=== PATIENT | male | born 1965 | race Caucasian/White ===

== ENCOUNTER 2023-11-28 06:45 | Outpatient (OUT) | payer OTHER, SELFPAY ==
[2023-11-28 07:26] LABS: Basophils Absolute Auto 0.1 10^3/uL (0.0-0.1); Eosinophils Absolute Auto 0.3 10^3/uL (0.0-0.7); Eosinophils Percent Auto 3.4 % (0.9-7.0); Hematocrit 38.7 % (42.0-54.0); Hemoglobin 12.9 g/dL (14.0-18.0); Immature Granulocytes Abs Auto 0.04 10^3/uL (0.00-0.03); Immature Granulocytes Pct Auto 0.4 % (0.0-0.5); Lymphocytes Absolute Auto 3.9 10^3/uL (1.2-3.8); Lymphocytes Percent Auto 41.8 % (20.5-60.0); Mean Corpuscular HGB Conc 33.3 g/dL (29.9-35.2); Mean Corpuscular Hemoglobin 29.5 pg (25.9-34.0); Mean Corpuscular Volume 88.6 fL (80.0-94.0); Mean Platelet Volume 9.7 fL (9.5-13.5); Monocytes Absolute Auto 0.9 10^3/uL (0.3-0.8); Neutrophils Percent Auto 43.4 % (43.0-75.0); Platelet Count 282 10^3/uL (150-450); Red Blood Count 4.37 10^6/uL (4.70-6.10); Red Cell Distribution Width 12.5 % (11.0-15.0); White Blood Count 9.3 10^3/uL (4.0-11.0)
== END 2023-11-28 06:46 | disposition home or self-care (01) ==
LOC: LAB 06:45
PROVIDERS: Visit Provider Nurse Practitioner Family
DX: Z01.812 Encounter for preprocedural laboratory examination (principal); Z01.818 Encounter for other preprocedural examination
CPT/HCPCS: 36415; 85025

== ENCOUNTER 2025-03-05 06:45 | Outpatient (OUT) | payer OTHER, SELFPAY ==
--- OUTSIDE RECORDS SUMMARY | 2025-03-05 06:48 | XMS_ITS | Clinical Summary ---
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 Name Role Phone Unavailable Primary Care Provider Unavailabl e Social History Tobacco Use Types Packs/Day Years Used Date Smoking Tobacco: Never Assessed Sex and Gender Information Value Date Recorded Sex Assigned at Not on file Legal Sex Male 1:03 PM EDT Gender Identity Not on file Sexual Orientation Not on file Plan of Treatment Health Maintenance Due Date Last Done Comments HEPATITIS C VIRUS SCREENING 1967 TETANUS 1967 HIV SCREENING DISCUSSION 1982 HEP B VACCINE (1 of 3 - 19+ 3-dose series) 1986 TDAP (ADULT) 1986 LIPID SCREENING 2007 COLORECTAL CANCER SCREENING DISCUSSION 2012 PNEUMOCOCCAL VACCINE SERIES (1 of 1 - PCV) 2017 ZOSTER (SHINGLES) VACCINE (1 of 2) 2017 PROSTATE CANCER SCREENING DISCUSSION 2022 COVID-19 VACCINE ( - 2023- season) 2024 INFLUENZA VACCINE (#1) 2025 Insurance Medicare [employer] PPO
--- OUTSIDE RECORDS SUMMARY | 2025-03-05 06:48 | XMS_ITS | Clinical Summary ---
[facility] Address [id number] [facility] [place] [address] Care Team Providers Care [employer] Worker Name Role Phone Unavailable Primary Care Provider Unavailabl e Social History Tobacco Use Types Packs/Day Years Used Date Smoking Tobacco: Never Assessed Childcare Answer Date Recorded Childcare Unknown 12/17/2018 Employment Answer Date Recorded Employment Unknown 12/17/2018 Sex and Gender Information Value Date Recorded Sex Assigned at Not on file Legal Sex Male 11:51 AM EDT Gender Identity Not on file Sexual Orientation Not on file Plan of Treatment Not on file Medical Devices Not on file
--- OUTSIDE RECORDS SUMMARY | 2025-03-05 06:48 | XMS_ITS | CCD ---
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 Name Role Phone VANESSA VILLAR Admitting Unavailable UNKNOWN, PHYSICIAN Primary Care Unavailable HERMINIA ADAMS Referring Unavailable ID Procedure Practitioner Unavailab le UNKNOWN, PROVIDER Surgeon Unavailable DELIA ANTONIO Attending Unavailable ID Procedure Practitioner Unavailab le [place], EHAB A Surgeon Unavailable MISC, DOCTOR Primary Care Unavailable [place]HAWY, EHAB Attending Unavailable [place], EHAB Consulting Unavailable [place], EHAB Admitting Unavailable MISC, DOCTOR Attending Unavailable MISC, DOCTOR Consulting Unavailable MISC, DOCTOR Admitting Unavailable MISC, DOCTOR Primary Care Unavailable EL[place]HAWY, EHAB Attending Unavailable [place], EHAB Consulting Unavailable [place], EHAB Admitting Unavailable KARY ABRAHAM Consulting Unavailable REQUEST, NONE LISTED Primary Care Unavailable HERMINIA ADAMS Attending Unavailable HERMINIA ADAMS Admitting Unavailable HERMINIA ADAMS Consulting Unavailable Hope Vazquez MD Unavailable Dallin Harris MD Unavailable Hope Vazquez MD Unavailable Dallin Harris MD Unavailable NO FAMILY, PHYSICIAN Primary Care Provider Unava MICH Bhatt Emergency Provider DO Randell Fields Admit Provider [phone] DO Randell Fields Attending Provider Randell Fields Admitting Unavailable Yohana Stewart Attending Unavailable NO FAMILY, PHYSICIAN Primary Care Unavailable Dallin Harris MD Unavailable JR. MADRID GEORGE C Attending Unavaila yamileth MADRID JR., GEORGE C Attending Unavaila ARDEN Daniel Attending Unavailable BOYLE, CHARI Rogel Attending Unavailable BLACKSTONGEMINI T Attending Unavailable BOYLE, CHARI J Referring Unavailable KELBLEY, ODILIA Attending Unavailable BOYLE, CHARI J Referring Unavailable KELBLEY, ODILIA Attending Unavailable BOYLE, CHARI J Referring Unavailable BLACKSTON, GEMINI T Attending Unavailable BOYLE, CHRAI J Referring Unavailable KELBLEY, ODILIA Attending Unavailable BOYLE, CHARI J Referring Unavailable KELBLEY, ODILIA Attending Unavailable BOYLE, CHARI J Referring Unavailable RUPALI REYES Attending Unavailable BOYLE, CHARI J Referring Unavailable BLACKSTON, GEMINI T Attending Unavailable BOYLE, CHARI J Referring Unavailable BOYLE, CHARI J Attending Unavailable BLACKSTON, GEMINI T Attending Unavailable BOYLE, CHARI J Referring Unavailable KELBLEY, ODILIA Attending Unavailable BOYLE, CHARI J Referring Unavailable IZAGUIRREPAULA Attending Unavailable BOYLE, CHARI J Referring Unavailable BLACKSTON, GEMINI T Attending Unavailable BOYLE, CHARI J Referring Unavailable KELBLEY, ODILIA Attending Unavailable BOYLE, CHARI J Referring Unavailable KELBLEY, ODILIA Attending Unavailable BOYLE, CHARI J Referring Unavailable BLACKSTONGEMINI T Attending Unavailable BOYLE, CHARI J Referring Unavailable KELBLEY, ODILIA Attending Unavailable BOYLE, CHARI J Referring Unavailable KELBLEY, ODILIA Attending Unavailable BOYLE, CHARI J Referring Unavailable BLACKSTON, GEMINI T Attending Unavailable BOYLE, CHARI J Referring Unavailable KELBLEY, ODILIA Attending Unavailable BOYLE, CHARI J Referring Unavailable IZAGUIRREPAULA Attending Unavailable BOYLE, CHARI J Referring Unavailable STEPHEN BARRIOS Attending Unavailable BOYLE, CHARI J Referring Unavailable BLACKSTONGEMINI T Attending Unavailable BOYLE, CHARI J Referring Unavailable BOYLE, CHARI Rogel Attending Unavailable STEPHEN BARRIOS Attending Unavailable BOYLE, CHARI J Referring Unavailable KELBLEY, ODILIA Attending Unavailable BOYLE, CHARI J Referring Unavailable KELBLEY, ODILIA Attending Unavailable BOYLE, CHARI J Referring Unavailable KELBLEY, ODILIA Attending Unavailable BOYLE, CHARI J Referring Unavailable MAGDA MANNING Attending Unavailable BOYLE, CHARI J Referring Unavailable KELBLEY, ODILIA Attending Unavailable BOYLE, CHARI J Referring Unavailable KELBLEY, ODILIA Attending Unavailable BOYLE, CHARI J Referring Unavailable JR. MADRID GEORGE C Attending Rambo Resendez MD, Sean Larson Primary Care Provider Unavail able NOBLE HARRIS Attending Unavailable NOBLE HARRIS Referring Unavailable KIMBERLY MD, DALLIN Attending Unavailable DALLIN HARRIS MD Referring Unavailable Medications Current Medications Medication Drug Class(es) Dates Sig (Normalized) Sig (Original) furosemide 20 mg oral tablet (20 sources) Loop Diuretic furosemide (Lasi x) 20 MG tablet 1 (one) time each day at the same time. Active perflutren lipid microspheres 1.3 mL in NaCl (PF) 0.9% 10 mL injection (DEFINITY) (6 sources) Start: 11-04-2023 End: 11-11-2023 perflutren lipid microspheres 1.3 mL in NaCl (PF) 0.9% 10 mL injection (DEFINITY) Start: 10-12-2022 End: 03-04-2023 perflutren lipid microsphere s 1.3 mL in NaCl (PF) 0.9% 10 mL injection (DEFINITY) Start: 10-12-2022 End: 01-11-2024 perflutren lipid microsphere s 1.3 mL in NaCl (PF) 0.9% 10 mL injection (DEFINITY) 125 ml sodium chloride 9 mg/ ml prefilled syringe (6 sources) Start: 10-12-2022 End: 01-11-2024 sodium chloride 0.9 % (flush ) 10 mL (BD POSIFLUSH) Completed/Discontinued Medications Medication Drug Class(es) Dates Sig (Normalized) Sig (Original) apixaban 5 mg oral tablet (20 sources) Factor Xa Inhibitor Start: 02-03-2023 End: 03-01-2025 take 1 tablet by mouth twice daily apixaban (ELIQUIS) 5 mg tab(s) Take 1 tablet by mouth two times a day. 180 tablet 3 02/13/2024 03/01/2025 Discontinued Start: 06-28-2022 End: 01-31-2023 take 1 tablet by mouth twice daily ELIQUIS 5 mg tab(s) TAKE 1 TABLET BY MOUTH TWICE DAILY 180 tablet 3 06/28/2022 01/31/2023 Discontinued Start: 08-07-2021 End: 06-25-2022 take 1 tablet by mouth twice daily apixaban (ELIQUIS) 5 mg tab(s) Take 1 tablet by mouth twice daily. 60 tablet 5 12/11/2021 06/25/2022 Discontinued apixaban (Eliqui s) 5 MG tablet every 12 (twelve) hours. Active Comment on above: Take 1 tablet by rickey twice daily. Take 5 mg by mouth t wice daily. TAKE 1 TABLET BY RICKEY TWICE DAILY aspirin 81 mg delayed release oral tablet (20 sources) Platelet Aggregation Inhibitor, Nonsteroidal Anti-inflammatory Drug Start: 02-13-2024 End: 03-01-2025 take 1 tablet by mouth once daily aspirin, enteric coated (ASPIRIN, ENTERIC COATED) 81 mg EC tablet Take 1 tablet by mouth once daily. 90 tablet 3 02/13/2024 03/01/2025 Discontinued Start: 08-07-2021 take 1 tablet by rickey once daily Aspirin (Baby Aspirin) 81 mg Tablet,Chewable Active 81 MG PO Daily August 07, 2021 12:00am Comment on above: Take 81 mg by mouth once daily. atorvastatin 80 mg oral tablet (20 sources) HMG-CoA Reductase Inhibitor Start: 3 End: 5 take 1 tablet by mouth once daily atorvastatin (LIPITOR) 80 mg tablet Take 1 tablet by mouth once daily. 90 tablet 3 02/13/2024 03/01/2025 Discontinued Start: 08-07-2021 End: 01-31-2023 take 1 tablet by mouth once daily atorvastatin (LIPITOR) 80 mg tablet TAKE 1 TABLET BY MOUTH EVERY DAY 30 tablet 5 06/05/2022 01/31/2023 Discontinued Comment on above: Take 1 tablet by rickey once daily. Take 80 mg by mouth once daily. TAKE 1 TABLET BY RICKEY EVERY DAY lisinopril 5 mg oral tablet (20 sources) Angiotensin Converting Enzyme Inhibitor Start: 2 End: 5 take 1 tablet by mouth once daily lisinopril (ZESTRIL) 5 mg tablet TAKE 1 TABLET BY MOUTH DAILY 90 tablet 02/03/2025 03/01/2025 Discontinued Comment on above: Take 1 tablet by rickey once daily. Take 5 mg by mouth o nce daily. 24 hr metoprolol succinate 50 mg extended release oral tablet (20 sources) beta-Adrenergic Mary Jo Start: 3 End: 5 take 1 tablet by mouth twice daily metoprolol succinate ER (TOPROL XL) 50 mg 24 hr tablet TAKE 1 TABLET BY MOUTH TWICE DAILY 180 tablet 02/03/2025 03/01/2025 Discontinued Start: 11-28-2022 End: 01-31-2023 take 1 tablet by mouth twice daily metoprolol succinate ER (TOPROL XL) 50 mg 24 hr tablet TAKE 1 TABLET BY MOUTH TWICE DAILY 180 tablet 0 11/28/2022 01/31/2023 Discontinued Start: 08-07-2021 take 25 mg by mouth once daily Metoprolol Succinate Active 25 MG PO Daily August 07, 2021 12:00am Start: 10-10-2020 End: 12-11-2021 take 1 tablet by mouth twice daily metoprolol succinate ER (TOPROL XL) 50 mg 24 hr tablet Take 1 tablet by mouth twice daily. 180 tablet 3 12/11/2021 Active metoprolol succi sheila XL (Toprol-XL) 25 MG 24 hr tablet 1 (one) time each day at the same time. Active Comment on above: Take 1 tablet by rickey th twice daily. TAKE 1 TABLET BY RICKEY TH TWICE DAILY pantoprazole 40 mg delayed release oral tablet (11 sources) Proton Pump Inhibitor Start: 06-05-20 End: 11-04-19 take 1 tablet by mouth once daily in the morning pantoprazole DR (PROTONIX) 40 mg tablet Take 1 tablet by mouth daily at 6 am. 45 tablet 0 06/05/2023 11/04/2023 Discontinued Comment on above: Take 1 tablet by rickey th daily at 6 am. spironolactone 25 mg oral tablet (20 sources) Aldosterone Antagonist Start: 02-04-20 End: 03-01-20 take 0.5 tablet by mouth once daily spironolactone (ALDACTONE) 25 mg tablet TAKE 1/2 TABLET BY MOUTH DAILY 45 tablet 02/03/2025 03/01/2025 Discontinued Start: 11-28-2022 End: 01-31-2023 take 0.5 tablet by mouth once daily spironolactone (ALDACTONE) 25 mg tablet TAKE 1/2 TABLET BY MOUTH EVERY DAY 45 tablet 0 11/28/2022 01/31/2023 Discontinued Start: 08-07-2021 take 25 mg by mouth once daily Spironolactone Active 25 MG PO Daily August 07, 2021 12:00am Start: 05-04-2020 End: 06-06-2022 take 0.5 tablet by mouth once daily spironolactone (ALDACTONE) 25 mg tablet Take 0.5 tablets by mouth once daily. 45 tablet 3 12/11/2021 Active Comment on above: Take 0.5 tablets by mouth once daily. TAKE 1/2 TABLET BY M OUTH EVERY DAY Problems Active Problems Problem Classification Problem Date Documented Date Episodic/Chronic Acute bronchitis (3 sources) Acute viral bronchitis; Translations: [Acute bronchitis due to other specified organisms] Onset: 2 06-26-2022 Episodic Cardiac dysrhythmias (20 sources) Unspecified atrial flutter; Translations: [Paroxysmal atrial fibrillation] Onset: 0 Chronic Conditions associated with dizziness or vertigo (1 source) Lightheadedness; Translations: [Dizziness and giddiness] 08-07-2021 Episodic Congestive heart failure; nonhypertensive (20 sources) Heart failure, unspecified; Translations: [Acute on chronic systolic heart failure] Onset: 0 06-19-2020 Chronic Coronary atherosclerosis and other heart disease (20 sources) Coronary atherosclerosis; Translations: [Atherosclerotic heart disease of [place] coronary artery without angina pectoris] Onset: 0 Chronic Disorders of lipid metabolism (6 sources) Mixed hyperlipidemia; Translations: [Mixed hyperlipidemia] Onset: 5 Chronic Essential hypertension (20 sources) Essential hypertension; Translations: [Essential (primary) hypertension] Onset: 0 Chronic Nonspecific chest pain (1 source) Chest pain, unspecified; Translations: [CHEST PAIN UNSPECIFIED] Onset: 0 Episodic Osteoarthritis (20 sources) Arthritis of right acromioclavicular joint; Translations: [Primary osteoarthritis, right shoulder] Onset: 3 12-11-2022 Chronic Other aftercare (1 source) 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; Translations: [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 CURRNT USE ANTICOAGULANTS] Onset: 0 Episodic Other aftercare (20 sources) Long-term current use of anticoagulant; Translations: [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] Onset: 1 07-15-2020 Episodic Other aftercare (1 source) Patient encounter status; Translations: [Encounter for follow-up examination after completed treatment for conditions other than malignant neoplasm] 02-13-2024 Episodic Other lower respiratory disease (1 source) Shortness of breath; Translations: [SHORTNESS OF BREATH] Onset: 0 Episodic Other lower respiratory disease (1 source) Dyspnea; Translations: [Shortness of breath] Episodic Other non-traumatic joint disorders (20 sources) Derangement of right shoulder joint; Translations: [Other specific joint derangements of right shoulder, not elsewhere classified] Onset: 3 12-11-2022 Chronic Other non-traumatic joint disorders (13 sources) Pain in right shoulder; Translations: [Pain in joint, shoulder region] 04-06-2024 Episodic Other nutritional; endocrine; and metabolic disorders (20 sources) Obese class I; Translations: [Obesity, unspecified] Onset: 1 07-15-2020 Chronic Other screening for suspected conditions (not mental disorders or infectious disease) (3 sources) Electrocardiogram abnormal; Translations: [Abnormal electrocardiogram [ECG] [EKG]] Onset: 5 02-25-2025 Episodic Pneumonia (except that caused by tuberculosis or sexually transmitted disease) (1 source) Pneumonia, unspecified organism; Translations: [Pneumonia, unspecified organism] Onset: 2 Episodic Residual codes; unclassified (15 sources) History of arthroscopic procedure on shoulder; Translations: [Other specified postprocedural states] 04-06-2024 Episodic Residual codes; unclassified (1 source) H/O: atrial fibrillation; Translations: [Other specified postprocedural states] 03-01-2025 Episodic Past or Other Problems Problem Classification Problem Date Documented Da te Episodic/Chronic Other non-traumatic joint disorders (10 sources) Stiffness of right shoulder; Translations: [Stiffness of right shoulder, not elsewhere classified] 03-25-2024 Episodic Results Test Name Value Interpretation Reference Range Facility [facility] 03-01-2025 CNOV Office Visit (CARCMN ) -- MARILU GOMEZ ([id number]) 1965 M Date Time Provider Department 03/01/25 1:00 PM DALLIN HARRIS During your visit today, we recorded the following information about you: Pulse Blood pressure Weight 60/minute 120/70 87.1 kg Dallin Harris MD 03/01/2025 1:58 PM Signed [facility] Department of Cardiovascular Medicine SECTION OF CLINICAL CARDIOLOGY OUTPATIENT VISIT DATE March 01, 2025 OUTPATIENT VISIT TYPE ESTABLISHED PRIMARY CARE PHYSICIAN: To use this Smartlink, specify the provider ID whose address you want to display, e.g., .PROVADDR[1 (where 1 is the provider ID). CHIEF COMPLAINT: Follow-up Feeling well HISTORY OF PRESENT ILLNESS: Mr. Gomez is a very pleasant 59-year-old man who was last seen in the cardiology clinic 02/13/2024. He has a history of established CAD with prior PCI of the LAD and circumflex 2017, paroxysmal atrial fibrillation, hypertension, hyperlipidemia. He underwent ablation of atrial fibrillation in May 2023. States that he has been feeling very well since the last visit. No recurrent symptomatic arrhythmia. He is compliant with anticoagulation. No history of TIA/CVA. Denies exertional angina or dyspnea. No orthopnea, PND or edema. PAST MEDICAL HISTORY Diagnosis Date Atrial flutter (HCC) CAD (coronary artery disease) CHF (congestive heart failure) (HCC) H/O arthroscopic knee surgery HTN (hypertension) PAST SURGICAL HISTORY Procedure Laterality Date ABLATION A-FIB BY PVI 06/04/2023 AFIB PVI W/COMPL EP STUDY 06/2020 and atrial flutter ELBOW SURGERY HX HEART CATHETERIZATION 03/20/2017 stent LAD and circumflex SHOULDER SURGERY HX 12/2023 SOCIAL HISTORY SOCIAL HISTORY[1] FAMILY HISTORY Problem Relation Age of Onset No Known Problems Mother Prostate Cancer Father Pancreatic Cancer Father No Known Problems Sister No Known Problems Brother ALLERGIES: ALLERGIES No Known Allergies MEDICATIONS: lisinopril (ZESTRIL) 5 mg tablet TAKE 1 TABLET BY MOUTH DAILY metoprolol succinate ER (TOPROL XL) 50 mg 24 hr tablet TAKE 1 TABLET BY MOUTH TWICE DAILY spironolactone (ALDACTONE) 25 mg tablet TAKE 1/2 TABLET BY MOUTH DAILY apixaban (ELIQUIS) 5 mg tab(s) Take 1 tablet by mouth two times a day. aspirin, enteric coated (ASPIRIN, ENTERIC COATED) 81 mg EC tablet Take 1 tablet by mouth once daily. atorvastatin (LIPITOR) 80 mg tablet Take 1 tablet by mouth once daily. PHYSICAL EXAMINATION: BP 120/70 (BP Site: Right Arm) Pulse 60 Wt 87.1 kg (192 lb) SpO2 99% BMI 28.77 kg/m? General: Well appearing, in no acute distress. Skin: No clubbing. No cyanosis. Neck: Supple, JVP normal Lungs: Clear to auscultation bilaterally. Heart: Regular rhythm. PMI 5th ICS LMCL, S1nl, S2nl. No murmur, added sounds or rub Extremities: No peripheral edema bilaterally. Neuro: Oriented x3, alert, cooperative, gait coordinated. CARDIOVASCULAR MEDICINE TESTING: Last ECHO Result Conclusion ECHO Collected: 11/04/2023 9:35 AM (Final result) Impression: CONCLUSIONS: - Exam indication: Paroxysmal atrial fibrillation S/P Ablation (05/2023) - The left ventricle is normal in size. Left ventricular systolic function is normal. EF = 58 ? 5% (2D biplane) Left ventricular diastolic function was not evaluated due to recent PVI. - The right ventricle is normal in size. Right ventricular systolic function is normal. - Estimated right ventricular systolic pressure is likely underestimated due to a weak or incomplete tricuspid regurgitation signal and is, at least, 27 mmHg consistent with normal pulmonary artery pressures. Estimated right atrial pressure is 8 mmHg based on IVC assessment. - There are no significant valvular abnormalities. - Exam was compared with the prior CC echocardiographic exam performed on 01/31/2023. PT now S/P Af Ablation. * * * Final * * * Last EKG Result Conclusion ECG COMPLETE Collected: 03/01/2025 11:30 AM (Preliminary result) Impression: NORMAL SINUS RHYTHM NORMAL ECG ECG reviewed Latest Ref Rng 02/13/2024 Protein, Total 6.3 - 8.0 g/dL 6.8 Albumin 3.9 - 4.9 g/dL 4.5 Calcium 8.5 - 10.2 mg/dL 9.7 Bilirubin, Total 0.2 - 1.3 mg/dL 0.4 Alkaline Phosphatase 38 - 113 U/L 80 AST 14 - 40 U/L 18 ALT 10 - 54 U/L 23 Glucose 74 - 99 mg/dL 97 BUN 9 - 24 mg/dL 17 Creatinine 0.73 - 1.22 mg/dL 0.97 Sodium 136 - 144 mmol/L 141 Potassium 3.7 - 5.1 mmol/L 4.5 Chloride 98 - 107 mmol/L 103 CO2 22 - 30 mmol/L 24 Anion Gap 8 - 15 mmol/L 14 eGFR >=60 mL/min/1.73m? 92 WBC 3.70 - 11.00 k/uL 8.25 RBC 4.20 - 6.00 m/uL 4.74 Hemoglobin 13.0 - 17.0 g/dL 14.1 Hematocrit 39.0 - 51.0 % 42.7 MCV 80.0 - 100.0 fL 90.1 MCH 26.0 - 34.0 pg 29.7 MCHC 30.5 - 36.0 g/dL 33 (more content not included)... Normal [facility] CNOV Office Visit (CARDMN ) -- MARILU GOMEZ ([id number]) 1965 M Date Time Provider Department 03/01/25 12:15 PM NOBEL HARRIS CARDMN During your visit today, we recorded the following information about you: Pulse Blood pressure Weight Height 67/minute 116/69 87.1 kg 1.74 m Noble Harris MD 03/01/2025 5:41 PM Signed [facility] Department of Cardiovascular Medicine SECTION OF CARDIAC PACING and ELECTROPHYSIOLOGY OUTPATIENT VISIT DATE March 01, 2025 OUTPATIENT VISIT TYPE ESTABLISHED PRIMARY CARE PHYSICIAN: To use this Smartlink, specify the provider ID whose address you want to display, e.g., .PROVADDR[1 (where 1 is the provider ID). REFERRING PHYSICIAN: Noble Harris [id number] [facility] [place] [address] CHIEF COMPLAINT: Atrial Fibrillation HISTORY OF PRESENT ILLNESS: Mr. Gomez is a 59 year old male who presents today for follow-up visit for atrial fibrillatoin. He denies chest pain, shortness of breath, orthopnea, cough, edema, palpitations, PND, lightheadedness or syncope. NURSING INTAKE HISTORY: Mr. Gomez is a 59 year old male who presents today for follow-up visit s/p redo PVI 06/04/2023. He was last seen in office 11/04/2023. 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 He has previously tried Sotalol but stopped due to ineffectiveness. He had a redo 06/04/2023 and has had no recurrence. He denies chest pain, shortness of breath, orthopnea, cough, edema, palpitations, PND, lightheadedness or syncope. He checks himself with a kardia once a month to once a week and with symptoms. CHADS VASC: 3 (CAD, CHF, HTN) PAST MEDICAL HISTORY Diagnosis Date Atrial flutter (HCC) CAD (coronary artery disease) CHF (congestive heart failure) (HCC) H/O arthroscopic knee surgery HTN (hypertension) PAST SURGICAL HISTORY Procedure Laterality Date ABLATION A-FIB BY PVI 06/04/2023 AFIB PVI W/COMPL EP STUDY 06/2020 and atrial flutter ELBOW SURGERY HX HEART CATHETERIZATION 03/20/2017 stent LAD and circumflex SHOULDER SURGERY HX 12/2023 SOCIAL HISTORY SOCIAL HISTORY[1] FAMILY HISTORY Problem Relation Age of Onset No Known Problems Mother Prostate Cancer Father Pancreatic Cancer Father No Known Problems Sister No Known Problems Brother ALLERGIES: ALLERGIES No Known Allergies MEDICATIONS: lisinopril (ZESTRIL) 5 mg tablet TAKE 1 TABLET BY MOUTH DAILY metoprolol succinate ER (TOPROL XL) 50 mg 24 hr tablet TAKE 1 TABLET BY MOUTH TWICE DAILY spironolactone (ALDACTONE) 25 mg tablet TAKE 1/2 TABLET BY MOUTH DAILY apixaban (ELIQUIS) 5 mg tab(s) Take 1 tablet by mouth two times a day. aspirin, enteric coated (ASPIRIN, ENTERIC COATED) 81 mg EC tablet Take 1 tablet by mouth once daily. atorvastatin (LIPITOR) 80 mg tablet Take 1 tablet by mouth once daily. Lorrie Iverson RN BP 116/69 Pulse 67 Ht 174 cm (5' 8.5 ) Wt 87.1 kg (192 lb) BMI 28.77 kg/m? CARDIOVASCULAR MEDICINE TESTING: Last ECHO Result Conclusion ECHO Collected: 11/04/2023 9:35 AM (Final result) Impression: CONCLUSIONS: - Exam indication: Paroxysmal atrial fibrillation S/P Ablation (05/2023) - The left ventricle is normal in size. Left ventricular systolic function is normal. EF = 58 ? 5% (2D biplane) Left ventricular diastolic function was not evaluated due to recent PVI. - The right ventricle is normal in size. Right ventricular systolic function is normal. - Estimated right ventricular systolic pressure is likely underestimated due to a weak or incomplete tricuspid regurgitation signal and is, at least, 27 mmHg consistent with normal pulmonary artery pressures. Estimated right atrial pressure is 8 mmHg based on IVC assessment. - There are no significant valvular abnormalities. - Exam was compared with the prior echocardiographic exam performed on 01/31/2023. PT now S/P Af Ablation. * * * Final * * * Last EKG Result Conclusion ECG COMPLETE Collected: 03/01/2025 11:30 AM (Preliminary result) Impression: NORMAL SINUS RHYTHM NORMAL ECG EP STAFF ADDENDUM: I have reviewed the above information and examined the patient and confirm the above with the following additions/modifications. HISTORY OF PRESENT ILLNESS: The patient is a 59-year-old male with a history of atrial fibrillation, status post two ablations, and coronary artery stents, presenting for follow-up. The patient underwent a second ablation in May 2023 and reports no recurrence of atrial fibrillation since the procedure. He denies experiencing chest pain, dyspnea, or palpitations. He roxanne (more content not included)... Normal [facility] ECHOon 11-04-2023 CONCLUSIONS: - Exam indication: Paroxysmal atrial fibrillation S/P Ablation (05/2023) - The left ventricle is normal in size. Left ventricular systolic function is normal. EF = 58 5% (2D biplane) Left ventricular diastolic function was not evaluated due to recent PVI. - The right ventricle is normal in size. Right ventricular systolic function is normal. - Estimated right ventricular systolic pressure is likely underestimated due to a weak or incomplete tricuspid regurgitation signal and is, at least, 27 mmHg consistent with normal pulmonary artery pressures. Estimated right atrial pressure is 8 mmHg based on IVC assessment. - There are no significant valvular abnormalities. - Exam was compared with the prior CC echocardiographic exam performed on 01/31/2023. PT now S/P Af Ablation. * * * Final * * * [facility] Echocardiography Report: Transthoracic Echo [facility] [id number] Date of service: 11/04/2023 9:35:12 AM [employer]UTIONS ARCHITECT Ordering physician: NOBLE HARRIS Indication: Paroxysmal atrial fibrillation S/P Ablation (05/2023) Technologist: America Verma Interpreting physician: Eleazar Coyle MD PATIENT: Name: MARILU GOMEZ : 1965 Age: 58 years Gender: M History of arrhythmia, hypertension, coronary artery disease and heart failure with hospitalization. Previous cardiovascular interventions: Afib ablation (2022) PCI (2016) Primary rhythm: sinus. Height: 172.70 cm BSA: 2.03 m Weight: 85.73 kg BMI: 28.7 kg/m Heart rate 93 bpm Blood pressure 139/75 mmHg Color Doppler was utilized to interrogate the cardiac valves assessed and spectral Doppler was utilized to determine the flow velocities and pressure gradients reported in this exam. Myocardial strain analysis was performed in this exam to aid in the assessment of cardiac function. MEASUREMENTS: Value Indexed Normal Max aortic dimension 3.3 cm Ao < 3.8 Left atrial volume 31 ml (biplane A-L) 15 ml/m Tramaine <= 34 LV ID (diastole) 4.0 cm (2D) 1.98 cm/m LV ID (systole) 2.6 cm (2D) 1.29 cm/m IVS, leaflet tips 1.2 cm (2D) Posterior wall thickness 0.8 cm (2D) Left ventricular mass 126 g (2D) 62 g/m Global peak long strain -19.1 % LV stroke volume 57 ml (2D biplane) LV end diastolic volume 100 ml (2D biplane) 49.2 ml/m 34<=EDVi<75 LV end systolic volume 42 ml (2D biplane) 20.8 ml/m Ejection Fraction 58 % (2D biplane) EF > 52 FINDINGS: LEFT VENTRICLE The left ventricle is normal in size. There is normal wall thickness. Left ventricular systolic function is normal globally. Global LV myocardial strain is normal. Left ventricular diastolic function was not evaluated due to recent PVI. Mitral annular lateral E/e': 4.4. Mitral annular septal E/e': 5.6. Wall Motion: All scored segments are normal. RIGHT VENTRICLE The right ventricle is normal in size. Right ventricular systolic function is normal globally. RV systolic tissue Doppler velocity is 15.0 cm/s. Tricuspid annular displacement is 2.1 cm. Estimated right ventricular systolic pressure is likely underestimated due to a weak or incomplete tricuspid regurgitation signal and is, at least, 27 mmHg consistent with normal pulmonary artery pressures. Estimated right atrial pressure is 8 mmHg based on IVC assessment. LEFT ATRIUM The left atrial cavity is normal in size. Pulmonary Veins: The pulmonary venous pattern showed blunted systolic flow. RIGHT ATRIUM The right atrial cavity is normal in size. Inferior Vena Cava: The inferior vena cava appears normal measuring 1.5 cm. The vessel decreases less than 50 percent with inspiration. MITRAL VALVE There is mild mitral annular calcification observed posterior. There is trace mitral valve regurgitation. There is mild thickening. The pressure half time is 69 msec. The peak mitral E/A ratio is 1.28. The average mitral E/e' ratio is 5.0. The mitral flow deceleration time is 238 msec. TRICUSPID VALVE The tricuspid valve leaflets are structurally normal. There is trace tricuspid valve regurgitation. The hepatic venous pattern showed normal systolic flow. AORTIC VALVE The aortic valve cusps are structurally normal. There is no aortic valve regurgitation. Tricuspid aortic valve. PULMONIC VALVE There is trace pulmonic valve regurgitation. There is no thickening. AORTA The visualized aorta is normal in size. Measurements - Sinus: 3.3 cm. Mid ascending aorta 3.2 cm. PULMONARY ARTERIES The pulmonary arteries are normal. INTERATRIAL SEPTUM There is no evidence of intracardiac shunting as detected by Doppler. INTERVENTRICULAR SEPTUM There is no flow through the interventricular septum as detected by Doppler. PERICARDIUM The pericardium is normal. There is no pericardial effusion. There is an epicardial fat pad. [facility] ARRHYTHMIA TRANS TELE MEASUR Antione 09-06-2023 Measure ID Interval 114 [facility] MEASURE QRS Interval 60 [facility] MEASURE QT Interval 450 [facility] MEASURE RR INTERVAL MAX 75.85 [facility] Symptoms routine [facility] ARRHYTHMIA TRANS TELE MEASUR Antione 08-30-2023 Measure ID Interval 111 [facility] MEASURE QRS Interval 103 [facility] MEASURE QT Interval 375 [facility] MEASURE RR INTERVAL MAX 80.27 [facility] Symptoms Routine [facility] ARRHYTHMIA TRANS TELE MEASUR Antione 08-23-2023 Measure ID Interval 130 [facility] MEASURE QRS Interval 60 [facility] MEASURE QT Interval 342 [facility] MEASURE RR INTERVAL MAX 77.49 [facility] Symptoms routine [facility] ARRHYTHMIA TRANS TELE MEASUR Antione 08-16-2023 Measure ID Interval 130 [facility] MEASURE QRS Interval 70 [facility] MEASURE QT Interval 325 [facility] MEASURE RR INTERVAL MAX 73.06 [facility] Symptoms routine [facility] ARRHYTHMIA TRANS TELE MEASUR Antione 08-08-2023 Measure ID Interval 154 [facility] MEASURE QRS Interval 84 [facility] MEASURE QT Interval 406 [facility] MEASURE RR INTERVAL MAX 81.36 [facility] Symptoms routine [facility] ARRHYTHMIA TRANS TELE MEASUR Antione 06-05-2023 Measure ID Interval 130 [facility] MEASURE QRS Interval 60 [facility] MEASURE QT Interval 345 [facility] MEASURE RR INTERVAL MAX 87.32 [facility] Symptoms routine [facility] ECG 12 lead ECGon 06-28-2022 ECG 12 lead ECG [facility] [place] [address] Electrocardiograph Report Signed Patient: Marilu Gomez JR MR#: [id number] : 1965 Acct:[id number] Age/Sex: 56 / M ADM Date: 06/26/22 Loc: Room: [address] [place] [address] Type: DIS IN Attending Dr: Yohana Stewart DO Ordering Provider: Randell Fields DO Date of Service: 06/28/22 ECG/ECG 12 lead ECG: already completed at 0100 Copies to: Test Reason : Blood Pressure : / mmHG Vent. Rate : 076 BPM Atrial Rate : 076 BPM P-R Int : 124 ms QRS Dur : 092 ms QT Int : 394 ms P-R-T Axes : 057 -33 037 degrees QTc Int : 443 ms Normal sinus rhythm Left anterior fascicular block Incomplete right bundle branch block Abnormal ECG No previous ECGs available Confirmed by KARY AHUMADA DO ([id number]) on 06/28/2022 7:02:00 PM Referred By: Electronically Signed By:KARY AHUMADA DO Transcribed By: MUS Signed By Kary Ahumada DO 06/28 190 [facility] Basic Metabolic Panelon 12-2 Anion gap [Moles/Vol] 12.1 mmol/L Normal 6.0-15.0 [facility] Comment on above: Performed By: #### U RLEGIONELLA, UR STP AG #### [facility] , Calcium [Mass/Vol] 8.3 mg/dL Normal 8.2-10.2 [facility] Comment on above: Performed By: #### U RLEGIONELLA, UR STP AG #### [facility] , Chloride [Moles/Vol] 104 mmol/L Normal 95-114 [facility] Comment on above: Performed By: #### U RLEGIONELLA, UR STP AG #### [facility] , CO2 [Moles/Vol] 23.8 mmol/L Normal 22.0-30.0 [facility] Comment on above: Performed By: #### U RLEGIONELLA, UR STP AG #### [facility] , Creatinine [Mass/Vol] 0.76 mg/dL Normal 0.64-1.27 [facility] Comment on above: Performed By: #### U RLEGIONELLA, UR STP AG #### [facility] , Creatinine Clr Calc Pharmacy 122.37 [facility] Comment on above: Result Comment: PERF ORMED BY: [facility] [address] [place] [address] PATHOLOGIST CROP ADJUSTER PEGGY YORK M.D. Performed By: #### U RLEGIONELLA, UR STP AG #### [facility] , Estimated GFR ( Fifi > 60 Normal [facility] Comment on above: Result Comment: GFR estimated reference range: According to KDOQI guidelines, <60 ml/min/1.73m2 is sufficient to diagnose a patient with chronic kidney disease. Performed By: #### U RLEGIONELLA, UR STP AG #### [facility] , Estimated GFR (Non- Am > 60 Normal [facility] Comment on above: Performed By: #### U RLEGIONELLA, UR STP AG #### [facility] , Glucose [Mass/Vol] 115 mg/dL High 70-100 [facility] Comment on above: Result Comment: [place] om Glucose Reference Range is dependent on time and content of last meal. Glucose of more than 200 mg/dL in a nonstressed, ambulatory subject supports the diagnosis of Diabetes Mellitus. ADA recommended reference range Performed By: #### U RLEGIONELLA, UR STP AG #### [facility] , Potassium [Moles/Vol] 3.9 mmol/L Normal 3.5-5.1 [facility] Comment on above: Performed By: #### U RLEGIONELLA, UR STP AG #### [facility] , Sodium [Moles/Vol] 136 mmol/L Normal 136-146 [facility] Comment on above: Performed By: #### U RLEGIONELLA, UR STP AG #### [facility] , Urea nitrogen [Mass/Vol] 9 mg/dL Normal 9-23 [facility] Comment on above: Performed By: #### U RLEGIONELLA, UR STP AG #### [facility] , BioFire Not Detectedon 06-27 BioFire Not Detected Not detected Normal Not Detecte [facility] Comment on above: Result Comment: This is a duplicate RP2.1 COVID (PCR) result to be used for statistical tracking purpose only. PERFORMED BY: [facility] [place] [address] PATHOLOGIST CROP ADJUSTER PEGGY YORK M.D. Performed By: #### U RLEGIONELLA, UR STP AG #### [facility] , Complete Blood Count Auto Di ffon 06-27-2022 Basophils (Bld) [#/Vol] 0.1 10*3/uL Normal 0.0-0.2 [facility] Comment on above: Result Comment: PERF ORMED BY: [facility] [place] [address] PATHOLOGIST CROP ADJUSTER PEGGY YORK M.D. Performed By: #### U RLEGIONELLA, UR STP AG #### [facility] , Basophils/100 WBC (Bld) 0.6 % Normal . [facility] Comment on above: Performed By: #### U RLEGIONELLA, UR STP AG #### [facility] , Eosinophils (Bld) [#/Vol] 0.2 10*3/uL Normal 0.0-0.45 [facility] Comment on above: Performed By: #### U RLEGIONELLA, UR STP AG #### [facility] , Eosinophils/100 WBC (Bld) 1.5 % Normal . [facility] Comment on above: Performed By: #### U RLEGIONELLA, UR STP AG #### [facility] , Erythrocyte distribution width (RBC) [Ratio] 14.0 % Normal 12.0-14.8 [facility] Comment on above: Performed By: #### U RLEGIONELLA, UR STP AG #### [facility] , Hematocrit (Bld) [Volume fraction] 34.8 % Low 38.8-50.0 [facility] Comment on above: Performed By: #### U RLEGIONELLA, UR STP AG #### [facility] , Hemoglobin (Bld) [Mass/Vol] 11.5 g/dL Low 13.0-17.0 [facility] Comment on above: Performed By: #### U RLEGIONELLA, UR STP AG #### [facility] , Lymphocytes (Bld) [#/Vol] 2.0 10*3/uL Normal 1.00-4.8 [facility] Comment on above: Performed By: #### U RLEGIONELLA, UR STP AG #### [facility] , Lymphocytes/100 WBC (Bld) 16.9 % Normal . [facility] Comment on above: Performed By: #### U RLEGIONELLA, UR STP AG #### [facility] , MCH (RBC) [Entitic mass] 29.1 pg Normal 27.5-35.2 [facility] Comment on above: Performed By: #### U RLEGIONELLA, UR STP AG #### [facility] , MCV (RBC) [Entitic vol] 88.1 fL Normal 83.5-101 [facility] Comment on above: Performed By: #### U RLEGIONELLA, UR STP AG #### [facility] , Mean Corpuscular HGB Conc 33.0 g/dL Normal 32.5-35.6 [facility] Comment on above: Performed By: #### U RLEGIONELLA, UR STP AG #### [facility] , Monocytes (Bld) [#/Vol] 1.5 10*3/uL High 0.0-0.8 [facility] Comment on above: Performed By: #### U RLEGIONELLA, UR STP AG #### [facility] , Monocytes/100 WBC (Bld) 12.2 % Normal . [facility] Comment on above: Performed By: #### U RLEGIONELLA, UR STP AG #### [facility] , Neutrophils (Bld) [#/Vol] 8.2 10*3/uL High 1.8-7.7 [facility] Comment on above: Performed By: #### U RLEGIONELLA, UR STP AG #### [facility] , Neutrophils/100 WBC (Bld) 68.8 % Normal . [facility] Comment on above: Performed By: #### U RLEGIONELLA, UR STP AG #### [facility] , NRBC% 0.0 /100{WBC} Normal 0-0.5 [facility] Comment on above: Performed By: #### U RLEGIONELLA, UR STP AG #### [facility] , Platelet mean volume (Bld) [Entitic vol] 7.2 fL Normal 6.6-10.1 [facility] Comment on above: Performed By: #### U RLEGIONELLA, UR STP AG #### [facility] , Platelets (Bld) [#/Vol] 337 10*3/uL Normal 150-450 [facility] Comment on above: Performed By: #### U RLEGIONELLA, UR STP AG #### [facility] , RBC (Bld) [#/Vol] 3.95 10*6/uL Normal 3.90-5.60 [facility] Comment on above: Performed By: #### U RLEGIONELLA, UR STP AG #### [facility] , WBC (Bld) [#/Vol] 11.9 10*3/uL High 4.1-10.5 [facility] Comment on above: Performed By: #### U RLEGIONELLA, UR STP AG #### [facility] , Legionella Pneumophilia Ag, Uron 06-27-2022 Legionella Pneumophilia Ag, Ur Negative Normal Negative [facility] Comment on above: Order Comment: SOURC E OF SPECIMEN: Clean Catch Result Comment: Pres umptive negative for L. pneumophila serogroup 1 antigen in urine, suggesting no recent or current infection. Legionnaires' disease cannot be ruled out since other serogroups and species may also cause disease. Performed at: [facility] [id number] Lens Generating Machine Tender: Ming Irving MD, Phone: [phone] Performed By: #### U RLSAIMAIONEMARYANA, UR STP AG #### [facility] , M Pneumoniae, IgM Abon 06-27 M Pneumoniae, IgM Ab <770 Normal 0-769 [facility] Comment on above: Result Comment: Nega tive <770 Clinically significant amount of M. pneumoniae antibody not detected. Low Positive 770 - 950 M. pneumoniae specific IgM presumptively detected. It is recommended that another sample be collected 1-2 weeks later to assure reactivity. Positive >950 Highly significant amount of M. pneumoniae specific IgM antibody detected. Performed at: [address] [id number] Lens Generating Machine Tender: See Proctor PhD, Phone: [phone] PERFORMED BY: [place] [address] PATHOLOGIST CROP ADJUSTER PEGGY YORK M.D. Performed By: #### U LUPIS, UR STP AG #### [facility] , Respiratory (Upper) Panel, P CRon 06-27-2022 Respiratory (Upper) Panel, PCR Adenovirus Not detected Bordetella parapertussis Not detected Chlamydia pneumoniae Not detected Coronavirus 229E Not detected Coronavirus HKU1 Not detected Coronavirus NL63 Not detected Coronavirus OC43 Not detected Influenza A Not detected Influenza B Not detected Human Metapneumovirus Not detected Mycoplasma pneumoniae Not detected Parainfluenza Virus 1 Not detected Parainfluenza Virus 2 Not detected Parainfluenza Virus 3 Not detected Parainfluenza Virus 4 Not detected Bordetella pertussis-ptxP Not detected Human Rhino/Enterovirus Not detected Resp. Syncytial Virus Not detected COVID-19 Detected/Not Detected Not detected PERFORMED BY: [place] [address] PATHOLOGIST CROP ADJUSTER PEGGY YORK M.D. [facility] Comment on above: Performed By: #### U RLEGIONELLA, UR STP AG #### [facility] , Strep Pneumoniae Ag, Uron Please Note: Normal . [facility] Comment on above: Order Comment: SOURC E OF SPECIMEN: Clean Catch Result Comment: Светл[employer]а [employer] standards require a culture to be performed on CSF specimens submitted for bacterial antigen testing. (CAP [id number]) Urine specimens will not be cultured. --- 08/30/22 1507 --- Please Note: previously reported as: [employer] standards require a culture to be performed on CSF specimens submitted for bacterial antigen testing. (CAP [id number]) Urine specimens will not be cultured. PERFORMED BY: [facility] [address] [place] [address] PATHOLOGIST CROP ADJUSTER PEGGY YORK M.D. Performed By: #### U RLEGIONELLA, UR STP AG #### [facility] , Specimen source Nom (Unsp spec) Normal . [facility] Comment on above: Order Comment: SOURC E OF SPECIMEN: Clean Catch Result Comment: Test not performed. Deterioration occurred during specimen handling. contacted your facility on 08-30-2022 Performed By: #### U RLEGIONELLA, UR STP AG #### [facility] , Streptococcus Pneumoniae Ag Normal . [facility] Comment on above: Order Comment: SOURC E OF SPECIMEN: Clean Catch Result Comment: Test not performed Performed By: #### U RLEGIONELLA, UR STP AG #### [facility] , Activated partial thrombopla stin time (aPTT) in platelet poor plasma by coagulation aOrdered By: Figueroa Esqueda on 06-26-2022 aPTT Coag (PPP) [Time] 39.5 s 25.1-36.5 [facility] Basophils Auto (Bld) [#/Vol] Ordered By: Figueroa Esqueda on 06-26-2022 Basophils (Bld) [#/Vol] 0.1 10*3/uL 0.0-0.2 [facility] Basophils/100 WBC Auto (Bld) Ordered By: Figueroa Esqueda on 06-26-2022 Basophils/100 WBC (Bld) 0.8 % . [facility] Body fluid albumin measureme nt (mass/volume)Ordered By: Figueroa Esqueda on 06-26-2022 Albumin (Body fld) [Mass/Vol] 2.8 g/dL 3.2-5.5 [facility] COVID CepheidOrdered By: Viktor Esqueda on 06-26-2022 SARS-CoV-2 (COVID-19) Ab IA Ql Negative Negative [facility] Comment on above: This is a duplicate Cepheid Xpert Xpress CoV-2/Flu/RSV Plus RNA by RT-PCR result to be used for statistical tracking purpose only. SARS-CoV-2 (COVID-19) RNA ERICH+probe Ql (Unsp spec) [facility] COVID-19 / Flu A/B / RSV PCR on 06-26-2022 SARS-CoV-2 (COVID-19) RNA ERICH+probe Ql (Unsp spec) COVID-19 Cepheid Result Negative for SARS-CoV-2 RNA by RT-PCR Flu A Cepheid Result Negative for Flu A RNA by RT-PCR Flu B Cepheid Result Negative for Flu B RNA by RT-PCR RSV Cepheid Result Negative for RSV RNA by RT-PCR COVID19 Blank Space -- Reference: Negative COVID19 Blank Space -- Cepheid Disclaimer The Cepheid Xpert Xpress CoV-2/Flu/RSV Plus has Cepheid Disclaimer not been FDA cleared or approved; this test has Cepheid Disclaimer been authorized by FDA under an EUA for use by Cepheid Disclaimer authorized laboratories; this test has been Cepheid Disclaimer authorized only for the simultaneous qualitative Cepheid Disclaimer detection and differentiation of nucleic acids from Cepheid Disclaimer SARS-CoV-2, influenza A, influenza B, and Cepheid Disclaimer respiratory syncytial virus (RSV), and not for any Cepheid Disclaimer other viruses or pathogens; and this test is only Cepheid Disclaimer authorized for the duration of the declaration that Cepheid Disclaimer circumstances exist justifying the authorization of Cepheid Disclaimer emergency use of in vitro diagnostic tests for Cepheid Disclaimer detection and/or diagnosis of COVID-19 under Cepheid Disclaimer Section 564(b)(1) of the Act, 21 U.S.C. 360bbb- Cepheid Disclaimer 3(b)(1), unless the authorization is terminated or Cepheid Disclaimer revoked sooner. PERFORMED BY: [address] [place] [address] PATHOLOGIST CROP ADJUSTER PEGGY YORK M.D. Normal [facility] Comment on above: Performed By: #### U RLEGNARINDER UR STP AG #### [facility] , Cepheid COVID PCR Negativeon 06-26-2022 SARS-CoV-2 (COVID-19) RNA ERICH+probe Ql (Unsp spec) Negative Normal Negative [facility] Comment on above: Result Comment: This is a duplicate Cepheid Xpert Xpress CoV-2/Flu/RSV Plus RNA by RT-PCR result to be used for statistical tracking purpose only. PERFORMED BY: [address] [place] [address] PATHOLOGIST CROP ADJUSTER PEGGY YORK M.D. Performed By: #### U RLEGIONEMARYANA, UR STP AG #### [facility] , Complete Blood Count Auto Di ffon 06-26-2022 Basophils (Bld) [#/Vol] 0.1 10*3/uL Normal 0.0-0.2 [facility] Comment on above: Result Comment: PERF ORMED BY: [address] [place] [address] PATHOLOGIST CROP ADJUSTER PEGGY YORK M.D. Performed By: #### C K, CBC, PT, CKMB, CMP, PTT, HS TROP, MG #### [address] Basophils/100 WBC (Bld) 0.8 % Normal . [facility] Comment on above: Performed By: #### C K, CBC, PT, CKMB, CMP, PTT, HS TROP, MG #### [address] Eosinophils (Bld) [#/Vol] 0.2 10*3/uL Normal 0.0-0.45 [facility] Comment on above: Performed By: #### C K, CBC, PT, CKMB, CMP, PTT, HS TROP, MG #### [address] Eosinophils/100 WBC (Bld) 2.0 % Normal . [facility] Comment on above: Performed By: #### C K, CBC, PT, CKMB, CMP, PTT, HS TROP, MG #### [address] Erythrocyte distribution width (RBC) [Ratio] 13.9 % Normal 12.0-14.8 [facility] Comment on above: Performed By: #### C K, CBC, PT, CKMB, CMP, PTT, HS TROP, MG #### [address] Hematocrit (Bld) [Volume fraction] 36.3 % Low 38.8-50.0 [facility] Comment on above: Performed By: #### C K, CBC, PT, CKMB, CMP, PTT, HS TROP, MG #### [address] Hemoglobin (Bld) [Mass/Vol] 12.1 g/dL Low 13.0-17.0 [facility] Comment on above: Performed By: #### C K, CBC, PT, CKMB, CMP, PTT, HS TROP, MG #### [address] Lymphocytes (Bld) [#/Vol] 2.1 10*3/uL Normal 1.00-4.8 [facility] Comment on above: Performed By: #### C K, CBC, PT, CKMB, CMP, PTT, HS TROP, MG #### [address] Lymphocytes/100 WBC (Bld) 18.6 % Normal . [facility] Comment on above: Performed By: #### C K, CBC, PT, CKMB, CMP, PTT, HS TROP, MG #### [address] MCH (RBC) [Entitic mass] 29.3 pg Normal 27.5-35.2 [facility] Comment on above: Performed By: #### C K, CBC, PT, CKMB, CMP, PTT, HS TROP, MG #### [address] MCV (RBC) [Entitic vol] 87.9 fL Normal 83.5-101 [facility] Comment on above: Performed By: #### C K, CBC, PT, CKMB, CMP, PTT, HS TROP, MG #### [address] Mean Corpuscular HGB Conc 33.3 g/dL Normal 32.5-35.6 [facility] Comment on above: Performed By: #### C K, CBC, PT, CKMB, CMP, PTT, HS TROP, MG #### [address] Monocytes (Bld) [#/Vol] 1.4 10*3/uL High 0.0-0.8 [facility] Comment on above: Performed By: #### C K, CBC, PT, CKMB, CMP, PTT, HS TROP, MG #### [address] Monocytes/100 WBC (Bld) 22.16 % High 0.00-20.00 [facility] Comment on above: Result Comment: For adults in ED, MDW > 20.0 may be associated with a higher risk of sepsis during the first 12 hrs of hospital admission Performed By: #### C K, CBC, PT, CKMB, CMP, PTT, HS TROP, MG #### [facility] [address] Monocytes/100 WBC (Bld) 12.6 % Normal . [facility] Comment on above: Performed By: #### C K, CBC, PT, CKMB, CMP, PTT, HS TROP, MG #### [address] Neutrophils (Bld) [#/Vol] 7.4 10*3/uL Normal 1.8-7.7 [facility] Comment on above: Performed By: #### C K, CBC, PT, CKMB, CMP, PTT, HS TROP, MG #### [address] Neutrophils/100 WBC (Bld) 66.0 % Normal . [facility] Comment on above: Performed By: #### C K, CBC, PT, CKMB, CMP, PTT, HS TROP, MG #### [address] NRBC% 0.0 /100{WBC} Normal 0-0.5 [facility] Comment on above: Performed By: #### C K, CBC, PT, CKMB, CMP, PTT, HS TROP, MG #### [address] Platelet mean volume (Bld) [Entitic vol] 7.2 fL Normal 6.6-10.1 [facility] Comment on above: Performed By: #### C K, CBC, PT, CKMB, CMP, PTT, HS TROP, MG #### [facility] [address] [place] [address] [place] Platelets (Bld) [#/Vol] 360 10*3/uL Normal 150-450 [facility] Comment on above: Performed By: #### C K, CBC, PT, CKMB, CMP, PTT, HS TROP, MG #### [place] [address] [place] RBC (Bld) [#/Vol] 4.13 10*6/uL Normal 3.90-5.60 [facility] Comment on above: Performed By: #### C K, CBC, PT, CKMB, CMP, PTT, HS TROP, MG #### [address] WBC (Bld) [#/Vol] 11.1 10*3/uL High 4.1-10.5 [facility] Comment on above: Performed By: #### C K, CBC, PT, CKMB, CMP, PTT, HS TROP, MG #### [address] Comprehensive Metabolic Pane alfa 06-26-2022 Albumin [Mass/Vol] 2.8 g/dL Low 3.2-5.5 [facility] Comment on above: Performed By: #### C K, CBC, PT, CKMB, CMP, PTT, HS TROP, MG #### [address] Albumin/Globulin [Mass ratio] 0.7 {ratio} Normal [facility] Comment on above: Performed By: #### C K, CBC, PT, CKMB, CMP, PTT, HS TROP, MG #### [address] ALP [Catalytic activity/Vol] 50 U/L Normal 32-92 [facility] Comment on above: Performed By: #### C K, CBC, PT, CKMB, CMP, PTT, HS TROP, MG #### [address] ALT [Catalytic activity/Vol] 20 U/L Normal 10-60 [facility] Comment on above: Performed By: #### C K, CBC, PT, CKMB, CMP, PTT, HS TROP, MG #### [address] Anion gap [Moles/Vol] 13.7 mmol/L Normal 6.0-15.0 [facility] Comment on above: Performed By: #### C K, CBC, PT, CKMB, CMP, PTT, HS TROP, MG #### [facility] [address] AST [Catalytic activity/Vol] 23 U/L Normal 10-42 [facility] Comment on above: Performed By: #### C K, CBC, PT, CKMB, CMP, PTT, HS TROP, MG #### [facility] [address] Bilirubin [Mass/Vol] 0.5 mg/dL Normal 0.3-1.2 [facility] Comment on above: Performed By: #### C K, CBC, PT, CKMB, CMP, PTT, HS TROP, MG #### [facility] [address] Calcium [Mass/Vol] 8.8 mg/dL Normal 8.2-10.2 [facility] Comment on above: Performed By: #### C K, CBC, PT, CKMB, CMP, PTT, HS TROP, MG #### [facility] [address] Chloride [Moles/Vol] 102 mmol/L Normal 95-114 [facility] Comment on above: Performed By: #### C K, CBC, PT, CKMB, CMP, PTT, HS TROP, MG #### [address] CO2 [Moles/Vol] 24.1 mmol/L Normal 22.0-30.0 [facility] Comment on above: Performed By: #### C K, CBC, PT, CKMB, CMP, PTT, HS TROP, MG #### [facility] [address] Creatinine [Mass/Vol] 0.84 mg/dL Normal 0.64-1.27 [facility] Comment on above: Performed By: #### C K, CBC, PT, CKMB, CMP, PTT, HS TROP, MG #### [facility] [address] Creatinine Clr Calc Pharmacy 110.88 [facility] Comment on above: Performed By: #### C K, CBC, PT, CKMB, CMP, PTT, HS TROP, MG #### [facility] [address] Estimated GFR ( Fifi > 60 [facility] Comment on above: Result Comment: GFR estimated reference range: According to KDOQI guidelines, <60 ml/min/1.73m2 is sufficient to diagnose a patient with chronic kidney disease. Performed By: #### C K, CBC, PT, CKMB, CMP, PTT, HS TROP, MG #### [facility] [address] Estimated GFR (Non- Am > 60 [facility] Comment on above: Performed By: #### C K, CBC, PT, CKMB, CMP, PTT, HS TROP, MG #### [address] Globulin (S) [Mass/Vol] 4.2 g/dL [facility] Comment on above: Performed By: #### C K, CBC, PT, CKMB, CMP, PTT, HS TROP, MG #### [address] Glucose [Mass/Vol] 113 mg/dL High 70-100 [facility] Comment on above: Result Comment: [place] Glucose Reference Range is dependent on time and content of last meal. Glucose of more than 200 mg/dL in a nonstressed, ambulatory subject supports the diagnosis of Diabetes Mellitus. ADA recommended reference range Performed By: #### C K, CBC, PT, CKMB, CMP, PTT, HS TROP, MG #### [address] Potassium [Moles/Vol] 3.8 mmol/L Normal 3.5-5.1 [facility] Comment on above: Performed By: #### C K, CBC, PT, CKMB, CMP, PTT, HS TROP, MG #### [address] Protein [Mass/Vol] 7.0 g/dL Normal 6.1-7.9 [facility] Comment on above: Performed By: #### C K, CBC, PT, CKMB, CMP, PTT, HS TROP, MG #### [facility] [address] Sodium [Moles/Vol] 136 mmol/L Normal 136-146 [facility] Comment on above: Performed By: #### C K, CBC, PT, CKMB, CMP, PTT, HS TROP, MG #### [facility] [address] Urea nitrogen [Mass/Vol] 13 mg/dL Normal 9-23 [facility] Comment on above: Performed By: #### C K, CBC, PT, CKMB, CMP, PTT, HS TROP, MG #### [facility] [address] Creatine Kinaseon 06-26-2022 CK [Catalytic activity/Vol] 454 U/L High [facility] Comment on above: Performed By: #### C K, CBC, PT, CKMB, CMP, PTT, HS TROP, MG #### [address] Creatine kinase [Enzymatic a ctivity/volume] in Serum or PlasmaOrdered By: Figueroa Esqueda on 06-26-2022 CK [Catalytic activity/Vol] 454 U/L [facility] Creatinine Kinase MBon 06-26 CK.MB [Mass/Vol] 3.9 ng/mL Normal 0.6-6.3 [facility] Comment on above: Performed By: #### C K, CBC, PT, CKMB, CMP, PTT, HS TROP, MG #### [address] CKMB Relative Index 0.8 % Normal 0.00-2.50 [facility] Comment on above: Performed By: #### C K, CBC, PT, CKMB, CMP, PTT, HS TROP, MG #### [facility] [address] [place] [address] [place] Creatinine and Glomerular fi ltration rate.predicted panel (S/P/Bld)Ordered By: Figueroa Esqueda on 06-26-2022 Creatinine [Mass/Vol] 0.84 mg/dL 0.64-1.27 [facility] ECG 12 lead ECGon 06-26-2022 ECG 12 lead ECG [facility] Main [address] [address] Electrocardiograph Report Signed Patient: Marilu Gomez JR MR#: [id number] : 1965 Acct:[id number] Age/Sex: 56 / M ADM Date: 06/26/22 Loc: Room: [address] [place] [address] Type: DIS IN Attending Dr: Yohana Stewart DO Ordering Provider: Figueroa Esqueda PA-C Date of Service: 06/26/22 ECG/ECG 12 lead ECG: Upper Respiratory Infection Copies to: Test Reason : Blood Pressure : / mmHG Vent. Rate : 147 BPM Atrial Rate : 163 BPM P-R Int : 000 ms QRS Dur : 092 ms QT Int : 310 ms P-R-T Axes : 000 -52 017 degrees QTc Int : 485 ms Atrial fibrillation with rapid ventricular response Left axis deviation Nonspecific ST abnormality Abnormal ECG When compared with ECG of 07-AUG-2021 22:20, Atrial fibrillation has replaced Atrial flutter QRS axis shifted left Confirmed by Bhavin Rivera DO ([id number]) on 06/27/2022 1:36:09 AM Referred By: Electronically Signed By:Bhavin Rivera DO Transcribed By: MUS Signed By Bhavin Rivera DO 2 0136 Normal [facility] Eosinophils Auto (Bld) [#/Vo l]Ordered By: Figueroa Esqueda on 06-26-2022 Eosinophils (Bld) [#/Vol] 0.2 10*3/uL 0.0-0.45 [facility] Eosinophils/100 WBC Auto (Bl d)Ordered By: Figueroa Esqueda on 06-26-2022 Eosinophils/100 WBC (Bld) 2.0 % . [facility] Erythrocyte distribution wid th Auto (RBC) [Ratio]Ordered By: Figueroa Esqueda on 06-26-2022 Erythrocyte distribution width (RBC) [Ratio] 13.9 % 12.0-14.8 [facility] Estimated glomerular filtrat ion rate (GFR) non- AmericanOrdered By: Figueroa Esqueda on 06-26-2022 GFR/1.73 sq M.predicted among non-blacks MDRD (S/P/Bld) [Vol rate/Area] > 60 mL/Min [facility] Globulin Calc (S) [Mass/Vol] Ordered By: Figueroa Esqueda on 06-26-2022 Globulin (S) [Mass/Vol] 4.2 g/dL [facility] Hematocrit Auto (Bld) [Volum e fraction]Ordered By: Figueroa Esqueda on 06-26-2022 Hematocrit (Bld) [Volume fraction] 36.3 % 38.8-50.0 [facility] Hemoglobin [Mass/volume] in BloodOrdered By: Figueroa Esqueda on 06-26-2022 Hemoglobin (Bld) [Mass/Vol] 12.1 g/dL 13.0-17.0 [facility] Laboratory - Chemistry and C hemistry - challengeOrdered By: Figueroa Esqueda on 06-26-2022 Magnesium [Mass/Vol] 1.8 mg/dL 1.6-2.6 [facility] Laboratory - CoagulationOrde red By: Figueroa Esqueda on 06-26-2022 PT Coag (PPP) [Time] 20.6 s 9.0-12.9 [facility] Leukocytes [#/volume] correc nerissa for nucleated erythrocytes in Blood by Automated counOrdered By: Figueroa Esqueda on 06-26-2022 WBC corrected for nucl RBC Auto (Bld) [#/Vol] 11.1 10*3/uL 4.1-10.5 [facility] Lymphocytes Auto (Bld) [#/Vo l]Ordered By: Figueroa Esqueda on 06-26-2022 Lymphocytes (Bld) [#/Vol] 2.1 10*3/uL 1.00-4.8 [facility] Lymphocytes/100 WBC Auto (Bl d)Ordered By: Figueroa Esqueda on 06-26-2022 Lymphocytes/100 WBC (Bld) 18.6 % . [facility] MCH Auto (RBC) [Entitic mass ]Ordered By: Figueroa Esqueda on 06-26-2022 MCH (RBC) [Entitic mass] 29.3 pg 27.5-35.2 [facility] MCHC Auto (RBC) [Mass/Vol]Or dered By: Figueroa Esqueda on 06-26-2022 MCHC (RBC) [Mass/Vol] 33.3 g/dL 32.5-35.6 [facility] MCV Auto (RBC) [Entitic vol] Ordered By: Figueroa Esqueda on 06-26-2022 MCV (RBC) [Entitic vol] 87.9 fL 83.5-101 [facility] Magnesiumon 06-26-2022 Magnesium [Mass/Vol] 1.8 mg/dL Normal 1.6-2.6 [facility] Comment on above: Result Comment: PERF ORMED BY: [place] [address] PATHOLOGIST [employer] ADJUSTER PEGGY YORK M.D. Performed By: #### C K, CBC, PT, CKMB, CMP, PTT, HS TROP, MG #### [facility] [address] Monocyte distribution width [Entitic volume] in Blood by AutomatedOrdered By: Figueroa Esqueda on 06-26-2022 Monocyte distribution width Auto (Bld) [Entitic vol] 22.16 % 0.00-20.00 [facility] Comment on above: For adults in ED, MD W > 20.0 may be associated with a higher risk of sepsis during the first 12 hrs of hospital admission Monocytes Auto (Bld) [#/Vol] Ordered By: Figueroa Esqueda on 06-26-2022 Monocytes (Bld) [#/Vol] 1.4 10*3/uL 0.0-0.8 [facility] Monocytes/100 WBC Auto (Bld) Ordered By: Figueroa Esqueda on 06-26-2022 Monocytes/100 WBC (Bld) 12.6 % . [facility] Neutrophils Auto (Bld) [#/Vo l]Ordered By: Figueroa Esqueda on 06-26-2022 Neutrophils (Bld) [#/Vol] 7.4 10*3/uL 1.8-7.7 [facility] Neutrophils/100 WBC Auto (Bl d)Ordered By: Figueroa Esqueda on 06-26-2022 Neutrophils/100 WBC (Bld) 66.0 % . [facility] No Panel InformationOrdered By: Figueroa Esqueda on 06-26-2022 Estimated GFR () > 60 mL/Min [facility] Comment on above: GFR estimated refere nce range: According to KDOQI guidelines, <60 ml/min/1.73m2 is sufficient to diagnose a patient with chronic kidney disease. Pharmacy Creatinine Clearance (Chem 110.88 [facility] Nucleated erythrocytes [Pres ence] in Blood by Automated countOrdered By: Figueroa Esqueda on 06-26-2022 Nucleated RBC Auto Ql (Bld) 0.0 /100{WBC} 0-0.5 [facility] Partial Thromboplastin Timeo n 06-26-2022 aPTT Coag (Bld) [Time] 39.5 s High 25.1-36.5 [facility] Comment on above: Result Comment: PERF ORMED BY: [place] [address] PATHOLOGIST [employer] ADJUSTER PEGGY YORK M.D. Performed By: #### C K, CBC, PT, CKMB, CMP, PTT, HS TROP, MG #### [facility] [address] Platelet mean volume Auto (B ld) [Entitic vol]Ordered By: Figueroa Esqueda on 06-26-2022 Platelet mean volume (Bld) [Entitic vol] 7.2 fL 6.6-10.1 [facility] Platelet poor plasma interna tional normalized ratio (INR) by coagulation assay (relatOrdered By: Figueroa Esqueda on 06-26-2022 INR Coag (PPP) [Relative time] 1.8 {INR} [facility] Comment on above: INR Therapeutic Rang e A) Pre- and Peroperative OAT started two weeks before surgery. NOT HIP SURGERY: 1.5 - 2.5 HIP SURGERY: 2 - 3B) Primary and secondary prevention of venous THROMBOSIS: 2 - 3C) Active venous thrombosis, pulmonary embolismand prevention of recurrent venous thrombosis: 2 - 3D) Prevention of arterial thromboembolismincluding patients with mechanical heart valves: 3 - 4.5 Platelets Auto (Bld) [#/Vol] Ordered By: Figueroa Esqueda on 06-26-2022 Platelets (Bld) [#/Vol] 360 10*3/uL 150-450 [facility] Protein [Mass/volume] in Ser um or PlasmaOrdered By: Figueroa Esqueda on 06-26-2022 Protein [Mass/Vol] 7.0 g/dL 6.1-7.9 [facility] Prothrombin Time INRon 06-26 INR Coag (PPP) [Relative time] 1.8 {INR} Normal [facility] Comment on above: Result Comment: INR Therapeutic Range A) Pre- and Peroperative OAT started two weeks before surgery. NOT HIP SURGERY: 1.5 - 2.5 HIP SURGERY: 2 - 3 B) Primary and secondary prevention of venous THROMBOSIS: 2 - 3 C) Active venous thrombosis, pulmonary embolism and prevention of recurrent venous thrombosis: 2 - 3 D) Prevention of arterial thromboembolism including patients with mechanical heart valves: 3 - 4.5 Performed By: #### C K, CBC, PT, CKMB, CMP, PTT, HS TROP, MG #### [facility] [address] PT Coag (PPP) [Time] 20.6 s High 9.0-12.9 [facility] Comment on above: Performed By: #### C K, CBC, PT, CKMB, CMP, PTT, HS TROP, MG #### [facility] [address] RBC Auto (Bld) [#/Vol]Ordere d By: Figueroa Esqueda on 06-26-2022 RBC (Bld) [#/Vol] 4.13 10*6/uL 3.90-5.60 [facility] Serum or plasma alanine laureano otransferase measurement without P-5'-P (enzymatic activiOrdered By: Figueroa Esqueda on 06-26-2022 ALT No additional P-5'-P [Catalytic activity/Vol] 20 U/L 1060 [facility] Serum or plasma albumin/glob ulin mass ratioOrdered By: Figueroa Esqueda on 06-26-2022 Albumin/Globulin [Mass ratio] 0.7 {ratio} [facility] Serum or plasma alkaline freya sphatase measurement (enzymatic activity/volume)Ordered By: Figueroa Esqueda on 06-26-2022 ALP [Catalytic activity/Vol] 50 U/L 32-92 [facility] Serum or plasma anion gap de terminationOrdered By: Figueroa Esqueda on 06-26-2022 Anion gap [Moles/Vol] 13.7 mmol/L 6.0-15.0 [facility] Serum or plasma aspartate am inotransferase measurement (enzymatic activity/volume)Ordered By: Figueroa Esqueda on 06-26-2022 AST [Catalytic activity/Vol] 23 U/L 10-42 [facility] Serum or plasma calcium sandra urement (mass/volume)Ordered By: Figueroa Esqueda on 06-26-2022 Calcium [Mass/Vol] 8.8 mg/dL 8.2-10.2 [facility] Serum or plasma chloride eva surement (moles/volume)Ordered By: Figueroa Esqueda on 06-26-2022 Chloride [Moles/Vol] 102 mmol/L 95-114 [facility] Serum or plasma creatine kin ase MB (CKMB)/total creatine kinase (CK) ratio by calculaOrdered By: Figueroa Esqueda on 06-26-2022 CK.MB Calc [Catalytic fraction] 0.8 % 0.00-2.50 [facility] Serum or plasma creatine kin ase MB measurement (mass/volume)Ordered By: Figueroa Esqueda on 06-26-2022 CK.MB [Mass/Vol] 3.9 ng/mL 0.6-6.3 [facility] Serum or plasma glucose sandra urement (mass/volume)Ordered By: Figueroa Esqueda on 06-26-2022 Glucose [Mass/Vol] 113 mg/dL 70-100 [facility] Comment on above: ADA recommended refe rence rangeRandom Glucose Reference Range is dependent on time and content of last meal. Glucose of more than 200 mg/dL in a nonstressed, ambulatory subject supports the diagnosis of Diabetes Mellitus. Serum or plasma potassium me asurement (moles/volume)Ordered By: Figueroa Esqueda on 06-26-2022 Potassium [Moles/Vol] 3.8 mmol/L 3.5-5.1 [facility] Serum or plasma sodium measu rement (moles/volume)Ordered By: Figueroa Esqueda on 06-26-2022 Sodium [Moles/Vol] 136 mmol/L 136-146 [facility] Serum or plasma total biliru bin measurement (mass/volume)Ordered By: Figueroa Esqueda on 06-26-2022 Bilirubin [Mass/Vol] 0.5 mg/dL 0.3-1.2 [facility] Serum or plasma total carbon dioxide measurement (moles/volume)Ordered By: Figueroa Esqueda on 06-26-2022 CO2 [Moles/Vol] 24.1 mmol/L 22.0-30.0 [facility] Serum or plasma urea nitroge n measurement (mass/volume)Ordered By: Figueroa Esqueda on 06-26-2022 Urea nitrogen [Mass/Vol] 13 mg/dL - [facility] Troponin I High Sensitivityo n 06-26-2022 Troponin I High Sensitivity 4 pg/mL Normal - [facility] Comment on above: Result Comment: PERF ORMED BY: [place] [address] PATHOLOGIST [employer] ADJUSTER PEGGY YORK M.D. Performed By: #### C K, CBC, PT, CKMB, CMP, PTT, HS TROP, MG #### [facility] [address] Troponin I.cardiac [Mass/vol ume] in Serum or Plasma by High sensitivity methodOrdered By: Figueroa Esqueda on 06-26-2022 Troponin I.cardiac High sensitivity method [Mass/Vol] 4 pg/mL [facility] WBC Auto (Bld) [#/Vol]Ordere d By: Figueroa Esqueda on 06-26-2022 WBC (Bld) [#/Vol] 11.1 10*3/uL 4.1-10.5 [facility] XR chest 1V portableon 06-26 XR chest 1V portable [facility] Main [place] [address] [place] [address] XRay Report Signed Patient: Marilu Gomez JR MR#: [id number] : 1965 Acct:[id number] Age/Sex: 56 / M ADM Date: 06/26/22 Loc: ER Room: Type: [facility] ER Attending Dr: Copies to: Figueroa Esqueda PA-C Ordering Provider: Figueroa Esqueda PA-C Date of Service: 06/26/22 XR/XR chest 1V portable: Upper Respiratory Infection XR chest 1V portable 06/26/2022 6:50 PM SIGNS AND SYMPTOMS: Cough, headache , A. fib PROTOCOL: Frontal radiograph of the chest COMPARISON: 08/07/2021 FINDINGS: The trachea is midline. The heart and mediastinal structures are within normal limits. The lung parenchyma is clear. The bony thorax is intact. Degenerative changes are noted in the thoracic spine. XR/XR chest 1V portable IMPRESSION: No acute cardiopulmonary pathology. Impression dictated by: Darshan Lopez M.D.06/26/2022 7:34 PM Dictation Location: [place] [address] Transcribed By: [facility] 06/26/221933 Dictated By: Darshan Lopez II, MD 06/26/221931 Signed By: 06/26/221933 [facility] MRI Shoulder w/o Righton MRI Shoulder w/o Right HISTORY: Internal derangement. Shoulder pain. TECHNIQUE: Multiplanar multisequence MRI of the shoulder was performed without contrast. COMPARISON: Shoulder radiographs 03/26/2022. FINDINGS: Mild degenerative changes of the acromioclavicular joint without other measures osteophyte formation. Lateral downsloping of the acromion. The acromion is curved. Coracoclavicular ligament intact. No subacromial/subdeltoid bursal fluid. Low-grade intrasubstance tear of distal anterior fibers of supraspinatus tendon at the footprint measuring approximately 3 mm in AP dimension. Infraspinatus, subscapularis, and teres minor tendons are intact. No atrophy or fatty infiltration of the rotator cuff musculature. Mild intra-articular long head biceps tendinosis. The biceps tendon resides within the bicipital groove. Nondisplaced tear at the posterior inferior chondral labral junction. Thin hyperintense T2 structure along the inferior margin of the glenoid measuring approximately 9 mm in length most likely represents a para meniscal cyst secondary to occult inferior labral tear. Tiny subcortical cyst formation within the anterior-inferior glenoid likely secondary to full-thickness cartilage fissures. Tiny partial thickness cartilage defect of the anterior-inferior glenoid. No glenohumeral joint effusion. IMPRESSION: Low-grade intrasubstance tear of distal anterior fibers of supraspinatus tendon at the footprint measuring approximately 3 mm in AP dimension. Nondisplaced tear at the posterior inferior chondral labral junction. Thin hyperintense T2 structure along the inferior margin of the glenoid measuring approximately 9 mm in length most likely represents a parameniscal cyst secondary to occult inferior labral tear. Mild long head biceps tendinosis. Mild degenerative changes of the acromial clavicular and glenohumeral joints. Report reported and signed by KARY VICENTE on 04/30/2022 1542 Normal [facility] [employer] XR Orbits for MRIon 04-30-20 22 XR Orbits for MRI HISTORY: Pre-MRI clearance, history of metal exposure. FINDINGS: No metallic foreign body is identified. Visualized osseous structures are unremarkable. IMPRESSION: No metallic foreign body. Report reported and signed by Srinivas Mo on 04/30/2022 1011 Normal [facility] [employer] PROF CHEM 8 (BAS METB)on Anion gap [Moles/Vol] 13.4 mmol/L Normal [facility] Comment on above: Performed By: #### T ROP, CMP, BNP #### [facility] [address] [place] [address] Barbara Tomeka Calcium [Mass/Vol] 9.7 mg/dL Normal 8.4-10.2 [facility] Comment on above: Performed By: #### T ROP, CMP, BNP #### [facility] [address] [place] [address] Barbara Tomeka Chloride [Moles/Vol] 98 mmol/L Normal 98-107 [facility] Comment on above: Performed By: #### T ROP, CMP, BNP #### [facility] [address] [place] [address] Barbara Tomeka CO2 [Moles/Vol] 27.5 mmol/L Normal 22.0-30.0 [facility] Comment on above: Performed By: #### T ROP, CMP, BNP #### [facility] [address] [place] [address] Barbara Tomeka Creatinine [Mass/Vol] 1.14 mg/dL Normal 0.66-1.25 [facility] Comment on above: Performed By: #### T ROP, CMP, BNP #### [facility] [address] [place] [address] Barbara Tomeka EGFR-AF BURKINAN >60 Normal >=60 [facility] Comment on above: Performed By: #### T ROP, CMP, BNP #### [facility] [address] [place] [address] Barbara Tomeka EGFR-NON AF BURKINAN >60 Normal >=60 [facility] Comment on above: Performed By: #### T ROP, CMP, BNP #### [facility] [address] [place] [address] Barbara Tomeka Glucose [Mass/Vol] 114 mg/dL Critically high 74-[address] [facility] Comment on above: Performed By: #### T ROP, CMP, BNP #### [facility] [address] [place] [address] Barbara Tomeka Potassium [Moles/Vol] 3.9 mmol/L Normal 3.4-5.0 [facility] Comment on above: Performed By: #### T ROP, CMP, BNP #### [facility] [address] [place] [address] Barbara Tomeka Sodium [Moles/Vol] 135 mmol/L Critically low 137-145 [facility] Comment on above: Performed By: #### T ROP, CMP, BNP #### [facility] Laboratory [address] [address] Barbara Tomeka Urea nitrogen [Mass/Vol] 34.0 mg/dL Critically high 9.0-20.0 [facility] Comment on above: Performed By: #### T ROP, CMP, BNP #### [facility] [address] [address] Barbara Tomeka Urea nitrogen/Creatinine [Mass ratio] 29.8 mg/mg Normal [facility] Comment on above: Performed By: #### T ROP, CMP, BNP #### [facility] [address] [address] Barbara Tomeka PROF CHEM 8 (BAS METB)on Anion gap [Moles/Vol] 14.5 mmol/L Normal [facility] Comment on above: Performed By: #### B MP #### [facility] [address] [place] [address] Barbara Tomeka Calcium [Mass/Vol] 9.4 mg/dL Normal 8.4-10.2 [facility] Comment on above: Performed By: #### B MP #### [facility] [address] [place] [address] Barbara Tomeka Chloride [Moles/Vol] 100 mmol/L Normal 98-107 [facility] Comment on above: Performed By: #### B MP #### [facility] [address] [place] [address] Barbara Tomeka CO2 [Moles/Vol] 26.6 mmol/L Normal 22.0-30.0 [facility] Comment on above: Performed By: #### B MP #### [facility] [address] [place], [place] [id number] Barbara Tomeka Creatinine [Mass/Vol] 0.98 mg/dL Normal 0.66-1.25 [facility] Comment on above: Performed By: #### B MP #### [facility] [address] [place] [address] Barbara Tomeka EGFR-AF BURKINAN 97 mL/min/1.73m2 Normal >=60 [facility] Comment on above: Performed By: #### B MP #### [facility] [address] [place], [place] [id number] Barbara Tomeka EGFR-NON AF BURKINAN 80 mL/min/1.73m2 Normal >=60 [facility] Comment on above: Performed By: #### B MP #### [facility] [address] [place], [place] [id number] Barbara Tomeka Glucose [Mass/Vol] 124 mg/dL Critically high 74-[address] [facility] Comment on above: Performed By: #### B MP #### [facility] [address] [place], [place] [address] Barbara Tomeka Potassium [Moles/Vol] 5.1 mmol/L Critically high 3.4-5.0 [facility] Comment on above: Performed By: #### B MP #### [facility] [address] [place], [place] [address] Barbara Tomeka Sodium [Moles/Vol] 136 mmol/L Critically low 137-145 [facility] Comment on above: Performed By: #### B MP #### [facility] [address] [id number] Barbara Tomeka Urea nitrogen [Mass/Vol] 33.0 mg/dL Critically high 9.0-20.0 [facility] Comment on above: Performed By: #### B MP #### [facility] [address] [place] [address] Barbara Tomeka Urea nitrogen/Creatinine [Mass ratio] 33.7 mg/mg Normal [facility] Comment on above: Performed By: #### B MP #### [facility] [address] [place], [place] [id number] Barbara Tomeka PROF CHEM 8 (BAS METB)on Anion gap [Moles/Vol] 15.4 mmol/L Normal [facility] Comment on above: Performed By: #### B MP #### [facility] [address] [place], [place] [address] Barbara Tomeka Calcium [Mass/Vol] 9.3 mg/dL Normal 8.4-10.2 [facility] Comment on above: Performed By: #### B MP #### [facility] [address] [place], [place] [address] Barbara Tomeka Chloride [Moles/Vol] 100 mmol/L Normal 98-107 [facility] Comment on above: Performed By: #### B MP #### [facility] [address] [place], [place] [address] Barbara Tomeka CO2 [Moles/Vol] 24.2 mmol/L Normal 22.0-30.0 [facility] Comment on above: Performed By: #### B MP #### [facility] [address] [place], [place] [address] Barbara Tomeka Creatinine [Mass/Vol] 1.34 mg/dL Critically high 0.66-1.25 [facility] Comment on above: Performed By: #### B MP #### [facility] [address] [place], [place] [address] Barbara Tomeka EGFR-AF BURKINAN >60 Normal >=60 [facility] Comment on above: Performed By: #### B MP #### [facility] [address] [id number] Barbara Tomeka EGFR-NON AF BURKINAN 56 mL/min/1.73m2 Critically low >=60 [facility] Comment on above: Performed By: #### B MP #### [facility] [address] [place] [address] Barbara Tomeka Glucose [Mass/Vol] 123 mg/dL Critically high 74-106 [facility] Comment on above: Performed By: #### B MP #### [facility] [address] [place] [address] Barbara Tomeka Potassium [Moles/Vol] 4.6 mmol/L Normal 3.4-5.0 [facility] Comment on above: Performed By: #### B MP #### [facility] [address] [place] [address] Barbara Tomeka Sodium [Moles/Vol] 135 mmol/L Critically low 137-145 [facility] Comment on above: Performed By: #### B MP #### [facility] [address] [place] [address] Barbara Tomeka Urea nitrogen [Mass/Vol] 30.0 mg/dL Critically high 9.0-20.0 [facility] Comment on above: Performed By: #### B MP #### [facility] [address] [place], [place] [address] Barbara Tomeka Urea nitrogen/Creatinine [Mass ratio] 22.4 mg/mg Normal [facility] Comment on above: Performed By: #### B MP #### [facility] [address] [place], [place] [address] Barbara Tomeka APTTon 03-02-2020 aPTT Coag (Bld) [Time] 38.3 s High 25.0-35.0 Th [facility] Comment on above: Order Comment: No: D o not add to previous draw Result Comment: ALL RESULTS MUST BE INTERPRETED WITH RESPECT TO BLOOD DRAWING ARTIFACT OR DILUTION ERROR OF ANTICOAGULANT AT THE TIME OF SAMPLING. THE APTT SHOULD NOT BE USED TO MONITOR UNFRACTIONATED HEPARIN THERAPY, THIS LABORATORY NO LONGER HAS AN ESTABLISHED THERAPEUTIC RANGE BASED ON THE APTT. IT IS RECOMMENDED THAT THE UFH - HEPARIN ASSAY (ANTI-XA ACTIVITY) BE USED FOR THIS PURPOSE. Performed By: #### 3 0477, [id number] #### [facility] [address] aPTT Coag (Bld) [Time] 101.0 s Critically high 25.0-35. 0 [facility] Comment on above: Order Comment: No: D o not add to previous draw Result Comment: ALL RESULTS MUST BE INTERPRETED WITH RESPECT TO BLOOD DRAWING ARTIFACT OR DILUTION ERROR OF ANTICOAGULANT AT THE TIME OF SAMPLING. THE APTT SHOULD NOT BE USED TO MONITOR UNFRACTIONATED HEPARIN THERAPY, THIS LABORATORY NO LONGER HAS AN ESTABLISHED THERAPEUTIC RANGE BASED ON THE APTT. IT IS RECOMMENDED THAT THE UFH - HEPARIN ASSAY (ANTI-XA ACTIVITY) BE USED FOR THIS PURPOSE. CLINICAL SIGNIFICANCE OF THE PTT RESULT IS QUESTIONABLE IN THE PRESENCE OF HEPARIN. RESULTS CHECKED AND CALLED. ACCURATELY READ BACK BY GENA LAL RN AT 0313. Performed By: #### 3 0477, [id number] #### [facility] [address] [facility]. [address] CBC COMPLETE BLOOD COUNTon 03-02-2020 Erythrocyte distribution width (RBC) [Ratio] 12.5 % Normal 11.5-15.0 [facility] Comment on above: Order Comment: No: D o not add to previous draw Performed By: #### 3 0477, [id number] #### [facility] [address] [facility]. [address] Hematocrit (Bld) [Volume fraction] 43.5 % Normal 39.0-50.0 [facility] Comment on above: Order Comment: No: D o not add to previous draw Performed By: #### 3 476, 04073 #### [facility] [address] [place] [id number], [facility] Hemoglobin (Bld) [Mass/Vol] 14.2 g/dL Normal 13.0-17.0 [facility] Comment on above: Order Comment: No: D o not add to previous draw Performed By: #### 3 476, 33943 #### [facility] [address] [place] [address], [facility] MCH (RBC) [Entitic mass] 29.5 pg Normal 27.0-33.0 [facility] Comment on above: Order Comment: No: D o not add to previous draw Performed By: #### 3 476, 71421 #### [facility] [address] [place] [id number], [facility] MCHC (RBC) [Mass/Vol] 32.6 g/dL Normal 32.0-35.0 [facility] Comment on above: Order Comment: No: D o not add to previous draw Performed By: #### 3 476, 42365 #### [facility] [address] [place] [address], [facility] MCV (RBC) [Entitic vol] 90.4 fL Normal 82.0-98.0 [facility] Comment on above: Order Comment: No: D o not add to previous draw Performed By: #### 3 476, 30034 #### [facility] [address] [place] [address], [facility] Nucleated RBC/100 WBC (Bld) [Ratio] 0 % Normal 0-0 [facility] Comment on above: Order Comment: No: D o not add to previous draw Performed By: #### 3 476, 67345 #### [facility] [address] [place] [id number], [facility] PLAT CNT 276 10*3/uL Normal 150-400 [facility] Comment on above: Order Comment: No: D o not add to previous draw Performed By: #### 3 0477, 15063 #### [facility] [address] [facility] [place] [address], [facility] RBC (Bld) [#/Vol] 4.81 10*6/uL Normal 4.20-5.70 [facility] Comment on above: Order Comment: No: D o not add to previous draw Performed By: #### 3 0477, 06877 #### [facility] [address] [facility] [place] [address], [facility] WBC (Bld) [#/Vol] 8.65 10*3/uL Normal 4.00-10.60 [facility] Comment on above: Order Comment: No: D o not add to previous draw Performed By: #### 3 0477, 41230 #### [facility] [address] Cardiovascular Lab Reporton 03-02-2020 Cardiovascular Lab Report [facility] Patient Name: [facility] Marilu MR #: [id number] Department of Physician: [facility] Farmer M.D. Division of Service Date: 03/02/2020 Cardiology Birthdate: 1965 Adult Cardiovascular Room #: 4AB [id number] [address] Cardiovascular Laboratory Report INDICATION: The patient is a 54-year-old man known to have coronary artery disease status post stenting procedure of the LAD and circumflex in 2017. He presented with atrial flutter and underwent transesophageal echocardiography guided cardioversion. In the setting, he was found to have acute systolic heart failure and he was referred for cardiac catheterization. PROCEDURES: 1. Bilateral selective coronary angiography from the left radial access. 2. Access in the left radial artery under ultrasound guidance. METHODS: Procedure was explained to the patient with risks and benefits. He signed informed consent. He was brought to laboratory helper in a fasting state. Modified Ivan's test was favorable on the right. A micropuncture needle was used under ultrasound guidance to gain access in the left radial artery and a 6-Yakut x 11 cm Hydrophilic sheath was advanced. Verapamil was given through the sheath and heparin was administered intravenously. Bilateral selective coronary angiography was then performed using 6-Yakut JL4 and JR4 diagnostic catheters. Catheters were removed. A TR band was used for hemostasis in the left radial artery. He tolerated the procedure well. He was transferred back to his room. TOTAL FLUORO TIME: 4.59 minutes. TOTAL AIR KERMA: 490 mGy. TOTAL CONTRAST VOLUME: 20 mL. HEMODYNAMICS: AO 134/89, mean 108. CORONARY ANGIOGRAPHY: This is a right dominant circulation. Left main: This arises from left coronary cusp. It bifurcates into left anterior descending and circumflex vessels. Left main is free of disease. Left anterior descending: This has a 30% diffuse proximal narrowing, which is stable from 2017. The mid LAD has a previously placed stent. The stent is widely patent. The rest of the LAD has mild disease. Circumflex vessel: This is large and nondominant. It has a 30% mid segment tubular narrowing followed by a previously placed stent. That stent is widely patent. The rest of the circumflex has mild disease. Right coronary artery: This arises from the right coronary cusp. It is a large and dominant vessel. It has mild diffuse disease. SUMMARY OF FINDINGS: 1. Patent previously placed mid LAD and mid circumflex stents. 2. 30% stenosis in the proximal LAD and 30% stenosis in the mid circumflex. 3. Mild disease in the RCA. RECOMMENDATIONS: 1. Medical therapy for coronary artery disease. 2. 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 Electronically Signed by: Cassandra Farmer M.D. 03/08/2020 10:29 P Cassandra Farmer M.D. Date Dict: 03/02/2020/11:34 A/Cassandra Farmer M.D. Date Trans: 03/02/2020 02:21 P/dhaval [id number] Normal [facility] UFH HEPARIN ASSAYon 03-02-20 20 UNFRACTIONATED HEPARIN >1.00 Critically high 0.30-0.7 0 [facility] Comment on above: Result Comment: [place] roxaban and Apixaban will interfere with the anti Xa assay used to monitor UFH and LMWH. ADDED PER PROTOCOL RESULTS CHECKED AND CALLED. ACCURATELY READ BACK BY GENA LAL RN AT 0313. UFH = 1.91 Performed By: #### 3 476, [id number] #### [facility] [address] [place] [address], [facility] APTTon 03-01-2020 aPTT Coag (Bld) [Time] 34.5 s Normal 25.0-35.0 Th e [facility] Comment on above: Order Comment: No: D o not add to previous draw Result Comment: ALL RESULTS MUST BE INTERPRETED WITH RESPECT TO BLOOD DRAWING ARTIFACT OR DILUTION ERROR OF ANTICOAGULANT AT THE TIME OF SAMPLING. THE APTT SHOULD NOT BE USED TO MONITOR UNFRACTIONATED HEPARIN THERAPY, THIS LABORATORY NO LONGER HAS AN ESTABLISHED THERAPEUTIC RANGE BASED ON THE APTT. IT IS RECOMMENDED THAT THE UFH - HEPARIN ASSAY (ANTI-XA ACTIVITY) BE USED FOR THIS PURPOSE. Performed By: #### 3 476, 92459 #### [facility] [address] [place] [address], [facility] BASIC METABOLIC PANELon 02-06 Calcium [Mass/Vol] 9.1 mg/dL Normal 8.6-10.3 [facility] Comment on above: Order Comment: No: D o not add to previous draw Performed By: #### 3 476, 60168 #### [facility] [address] [place] [id number], [facility] Chloride [Moles/Vol] 103 mmol/L Normal 98-107 [facility] Comment on above: Order Comment: No: D o not add to previous draw Performed By: #### 3 476, 10940 #### [facility] [address] [place] [id number], [facility] CO2 [Moles/Vol] 24 mmol/L Normal 21-31 [facility] Comment on above: Order Comment: No: D o not add to previous draw Performed By: #### 3 476, 42184 #### [facility] [address] [place] [address], [place] Creatinine [Mass/Vol] 0.77 mg/dL Normal 0.70-1.30 [facility] Comment on above: Order Comment: No: D o not add to previous draw Performed By: #### 3 047, 38722 #### [facility] [address] [place] [address], [place] GFR/1.73 sq M predicted among blacks MDRD (S/P/Bld) [Vol rate/Area] mL/min/{1.73_m2} Normal >60 [facility] Comment on above: Order Comment: No: D o not add to previous draw Performed By: #### 3 476, 51664 #### [facility] [address] [place] [address], [place] GFR/1.73 sq M predicted among non-blacks MDRD (S/P/Bld) [Vol rate/Area] mL/min/{1.73_m2} Normal >60 [facility] Comment on above: Order Comment: No: D o not add to previous draw Performed By: #### 3 7, 51412 #### [facility] [address] [place] [address], [place] Glucose [Mass/Vol] 110 mg/dL High 70-100 [facility] Comment on above: Order Comment: No: D o not add to previous draw Performed By: #### 3 7, 53811 #### [facility] [address] [place] [address], [place] Potassium [Moles/Vol] 4.1 mmol/L Normal 3.5-5.1 [facility] Comment on above: Order Comment: No: D o not add to previous draw Performed By: #### 3 0477, 77093 #### [facility] [address] [place] [address], [place] Sodium [Moles/Vol] 136 mmol/L Normal 136-145 [facility] Comment on above: Order Comment: No: D o not add to previous draw Performed By: #### 3 0477, 73004 #### [facility] [address] [place] [address], [facility] Urea nitrogen [Mass/Vol] 11 mg/dL Normal 7-25 [facility] Comment on above: Order Comment: No: D o not add to previous draw Performed By: #### 3 0477, 39024 #### [facility] [address] MAGNESIUM BLOODon 03-01-2020 Magnesium [Mass/Vol] 1.8 mg/dL Low 1.9-2.7 [facility] Comment on above: Order Comment: No: D o not add to previous draw Performed By: #### 3 0477, 51756 #### [facility] [address] [facility] [address] UFH HEPARIN ASSAYon 03-01-20 20 UNFRACTIONATED HEPARIN >1.00 Critically high 0.30-0.7 0 [facility] Comment on above: Result Comment: [place] roxaban and Apixaban will interfere with the anti Xa assay used to monitor UFH and LMWH. Results called. Accurately read back by Ellen Webster RN, 4B patient's nurse, at 1841, 01-Mar-2020. Actual UFH level = 2.13 IU/ml Performed By: #### 3 0477, 08362 #### [facility] [address] APTTon 02-29-2020 aPTT Coag (Bld) [Time] 60.3 s High 25.0-35.0 Th e [facility] Comment on above: Order Comment: No: D o not add to previous draw Result Comment: ALL RESULTS MUST BE INTERPRETED WITH RESPECT TO BLOOD DRAWING ARTIFACT OR DILUTION ERROR OF ANTICOAGULANT AT THE TIME OF SAMPLING. THE APTT SHOULD NOT BE USED TO MONITOR UNFRACTIONATED HEPARIN THERAPY, THIS LABORATORY NO LONGER HAS AN ESTABLISHED THERAPEUTIC RANGE BASED ON THE APTT. IT IS RECOMMENDED THAT THE UFH - HEPARIN ASSAY (ANTI-XA ACTIVITY) BE USED FOR THIS PURPOSE. CLINICAL SIGNIFICANCE OF THE PTT RESULT IS QUESTIONABLE IN THE PRESENCE OF HEPARIN. UFH = 1.01 IU/ml Performed By: #### 3 0477, 77339 #### [facility] [address] [place] [address], [facility] aPTT Coag (Bld) [Time] 91.0 s Critically high 25.0-35. 0 [facility] Comment on above: Order Comment: Yes: Add to Previous draw if able Result Comment: ALL RESULTS MUST BE INTERPRETED WITH RESPECT TO BLOOD DRAWING ARTIFACT OR DILUTION ERROR OF ANTICOAGULANT AT THE TIME OF SAMPLING. THE APTT SHOULD NOT BE USED TO MONITOR UNFRACTIONATED HEPARIN THERAPY, THIS LABORATORY NO LONGER HAS AN ESTABLISHED THERAPEUTIC RANGE BASED ON THE APTT. IT IS RECOMMENDED THAT THE UFH - HEPARIN ASSAY (ANTI-XA ACTIVITY) BE USED FOR THIS PURPOSE. RESULTS CHECKED AND CALLED. ACCURATELY READ BACK BY CONSTANZA ANDERSEN RN AT 0817 Performed By: #### 5 7307 #### [facility] [address] [facility] [place] [address], [facility] BASIC METABOLIC PANELon 08-2 4-2020 Calcium [Mass/Vol] 9.3 mg/dL Normal 8.6-10.3 [facility] Comment on above: Order Comment: No: D o not add to previous draw Performed By: #### 0 0071, 22144, 09266 #### [facility] [address] [facility] [place] [address], [facility] Chloride [Moles/Vol] 103 mmol/L Normal 98-107 [facility] Comment on above: Order Comment: No: D o not add to previous draw Performed By: #### 0 0071, 95932, 46738 #### [facility] [address] [facility] [place] [address], [facility] CO2 [Moles/Vol] 25 mmol/L Normal 21-31 [facility] Comment on above: Order Comment: No: D o not add to previous draw Performed By: #### 0 0071, 18015, 82450 #### [facility] [address] [place] [address], [place] Creatinine [Mass/Vol] 0.85 mg/dL Normal 0.70-1.30 [facility] Comment on above: Order Comment: No: D o not add to previous draw Performed By: #### 0 0071, 06231, 64134 #### [facility] [address] [place] [address], [place] GFR/1.73 sq M predicted among blacks MDRD (S/P/Bld) [Vol rate/Area] mL/min/{1.73_m2} Normal >60 [facility] Comment on above: Order Comment: No: D o not add to previous draw Performed By: #### 0 0071, 19499, 05989 #### [facility] [address] [place] [address], [place] GFR/1.73 sq M predicted among non-blacks MDRD (S/P/Bld) [Vol rate/Area] mL/min/{1.73_m2} Normal >60 [facility] Comment on above: Order Comment: No: D o not add to previous draw Performed By: #### 0 0071, 80140, 50081 #### [facility] [address] [place] [address], [place] Glucose [Mass/Vol] 103 mg/dL High 70-100 [facility] Comment on above: Order Comment: No: D o not add to previous draw Performed By: #### 0 0071, 91846, 14870 #### [facility] [address] [place] [address], [place] Potassium [Moles/Vol] 3.6 mmol/L Normal 3.5-5.1 [facility] Comment on above: Order Comment: No: D o not add to previous draw Performed By: #### 0 0071, 20748, 71674 #### [facility] [address] [place] [address], [place] Sodium [Moles/Vol] 139 mmol/L Normal 136-145 [facility] Comment on above: Order Comment: No: D o not add to previous draw Performed By: #### 0 0071, 81402, 54095 #### [facility] [address] [place] [address], [facility] Urea nitrogen [Mass/Vol] 12 mg/dL Normal 7-25 [facility] Comment on above: Order Comment: No: D o not add to previous draw Performed By: #### 0 0071, 70999, 61632 #### [facility] [address] [place] [address], [facility] CBC COMPLETE BLOOD COUNTon - Erythrocyte distribution width (RBC) [Ratio] 12.6 % Normal 11.5-15.0 [facility] Comment on above: Order Comment: No: D o not add to previous draw Performed By: #### 5 0608 #### [facility] [address] [place] [id number], [facility] Hematocrit (Bld) [Volume fraction] 42.8 % Normal 39.0-50.0 [facility] Comment on above: Order Comment: No: D o not add to previous draw Performed By: #### 5 0608 #### [facility] [address] [place] [id number], [facility] Hemoglobin (Bld) [Mass/Vol] 14.0 g/dL Normal 13.0-17.0 [facility] Comment on above: Order Comment: No: D o not add to previous draw Performed By: #### 5 0608 #### [facility] [address] [place] [address], [place] MCH (RBC) [Entitic mass] 30.0 pg Normal 27.0-33.0 [facility] Comment on above: Order Comment: No: D o not add to previous draw Performed By: #### 5 0608 #### [facility] [address] [place] [address], [facility] MCHC (RBC) [Mass/Vol] 32.7 g/dL Normal 32.0-35.0 [facility] Comment on above: Order Comment: No: D o not add to previous draw Performed By: #### 5 0608 #### [facility] [address] [place] [address], [facility] MCV (RBC) [Entitic vol] 91.8 fL Normal 82.0-98.0 [facility] [facility] Comment on above: Order Comment: No: D o not add to previous draw Performed By: #### 5 [id number] #### [facility] [address] [facility] [place] [address], [facility] Nucleated RBC/100 WBC (Bld) [Ratio] 0 % Normal 0-0 [facility] Comment on above: Order Comment: No: D o not add to previous draw Performed By: #### 5 [id number] #### [facility] [address] [facility] [place] [address], [facility] PLAT CNT 269 10*3/uL Normal 150-400 [facility] Comment on above: Order Comment: No: D o not add to previous draw Performed By: #### 5 [id number] #### [facility] [address] [facility] [place] [address], [facility] RBC (Bld) [#/Vol] 4.66 10*6/uL Normal 4.20-5.70 [facility] Comment on above: Order Comment: No: D o not add to previous draw Performed By: #### 5 [id number] #### [facility] [address] [place] [address], [facility] WBC (Bld) [#/Vol] 9.87 10*3/uL Normal 4.00-10.60 [facility] Comment on above: Order Comment: No: D o not add to previous draw Performed By: #### 5 [id number] #### [facility] [address] [place] [address], [facility] MAGNESIUM BLOODon 02-29-2020 Magnesium [Mass/Vol] 1.4 mg/dL Low 1.9-2.7 [facility] Comment on above: Order Comment: No: D o not add to previous draw Performed By: #### 0 [id number], [id number], [id number] #### [facility] [address] [facility] [place] [address], [facility] PHOSPHORUS BLOODon 0 Phosphate [Mass/Vol] 3.7 mg/dL Normal 2.5-5.0 [facility] Comment on above: Order Comment: No: D o not add to previous draw Performed By: #### 0 [id number], [id number], [id number] #### [facility] [address] [facility]. [address] *SARS-CoV-2 COVID-19on 02-27 [id number] Not Detected Normal Not Detected [facility] Comment on above: Order Comment: The A ptima SARS-CoV-2 assay is a nucleic acid amplification test intended for the qualitative detection of RNA from SARS-CoV-2 isolated and purified from nasopharyngeal (COST REDUCTION ENGINEER),oropharyngeal (OP), nasal swab, sputum, and bronchoalveolar lavage (BAL) specimens from patients with signs and symptoms of infection who are suspected of COVID-19. Results are for the identification of SARS-CoV-2 RNA. The SARS-CoV-2 RNA is generally detectable during the acute phase of infection. The Aptima SARS-CoV-2 Assay on the Insem Spa and Insem Spa Fusion system is intended for use by laboratory personnel specifically instructed and trained in the operation of the Sarah and Sarah Fusion system. The Aptima SARS-CoV-2 assay is only for use under the Food and Drug Administration Emergency Use Authorization. Testing is limited to laboratories certified under the Clinical Laboratory Improvement Amendments of 1988 (CLIA), 42 U.S.C. ???263a, to perform high complexity tests. Not Detected: Not detected does not preclude SARS-CoV-2 infection and should not be used as the sole basis for patient management decisions. Not detected results must be combined with clinical observations, patient history, and epidemiological information. Performed By: #### 3 [id number] #### [facility] [address] APTTon 02-28-2020 aPTT Coag (Bld) [Time] 148.3 s Critically high 25.0-35. 0 [facility] Comment on above: Order Comment: No: D o not add to previous draw Result Comment: ALL RESULTS MUST BE INTERPRETED WITH RESPECT TO BLOOD DRAWING ARTIFACT OR DILUTION ERROR OF ANTICOAGULANT AT THE TIME OF SAMPLING. THE APTT SHOULD NOT BE USED TO MONITOR UNFRACTIONATED HEPARIN THERAPY, THIS LABORATORY NO LONGER HAS AN ESTABLISHED THERAPEUTIC RANGE BASED ON THE APTT. IT IS RECOMMENDED THAT THE UFH - HEPARIN ASSAY (ANTI-XA ACTIVITY) BE USED FOR THIS PURPOSE. APTT RESULT REPEATED AND CONFIRMED CLINICAL SIGNIFICANCE OF THE PTT RESULT IS QUESTIONABLE IN THE PRESENCE OF HEPARIN. RESULTS CHECKED AND CALLED. ACCURATELY READ BACK BY GISSELL HERRERA RN AT 2259. Performed By: #### 5 [id number], [id number] #### [address] aPTT Coag (Bld) [Time] 34.4 s Normal 25.0-35.0 [facility] Comment on above: Order Comment: No: D o not add to previous draw Result Comment: ALL RESULTS MUST BE INTERPRETED WITH RESPECT TO BLOOD DRAWING ARTIFACT OR DILUTION ERROR OF ANTICOAGULANT AT THE TIME OF SAMPLING. THE APTT SHOULD NOT BE USED TO MONITOR UNFRACTIONATED HEPARIN THERAPY, THIS LABORATORY NO LONGER HAS AN ESTABLISHED THERAPEUTIC RANGE BASED ON THE APTT. IT IS RECOMMENDED THAT THE UFH - HEPARIN ASSAY (ANTI-XA ACTIVITY) BE USED FOR THIS PURPOSE. Performed By: #### 3 [id number], [id number] #### [facility] [address] BNPon 02-28-2020 Natriuretic peptide B (Bld) [Mass/Vol] 7614.0 pg/mL Critically high <=900.0 [facility] Comment on above: Result Comment: test repeated critical value verified Performed By: #### T ROP, CMP, BNP #### [facility] [address] [address] Barbara Eckert CBC AUTO DIFFon 02-28-2020 Basophils (Bld) [#/Vol] 0.1 103/ul Normal 0.0-0.1 [facility] Comment on above: Performed By: #### T ROP, CMP, BNP #### [facility] [address] [place] [address] Barbara Tomeka Basophils/100 WBC (Bld) 0.6 % Normal 0.2-2.0 [facility] Comment on above: Performed By: #### T ROP, CMP, BNP #### [facility] [address] [place] [address] Barbara Tomeka Eosinophils (Bld) [#/Vol] 0.1 103/ul Normal 0.0-0.7 [facility] Comment on above: Performed By: #### T ROP, CMP, BNP #### [facility] [address] [place] [address] Barbara Tomeka Eosinophils/100 WBC (Bld) 1.0 % Normal 0.9-7.0 [facility] Comment on above: Performed By: #### T ROP, CMP, BNP #### [facility] [address] [place] [address] Barbara Tomeka Erythrocyte distribution width (RBC) [Ratio] 12.5 % Normal 11.0-15.0 [facility] Comment on above: Performed By: #### T ROP, CMP, BNP #### [facility] [address] [place] [address] Barbara Tomeka Hematocrit (Bld) [Volume fraction] 48.1 % Normal 42.0-54.0 [facility] Comment on above: Performed By: #### T ROP, CMP, BNP #### [facility] [address] [place] [address] Barbara Tomeka Hemoglobin (Bld) [Mass/Vol] 15.6 g/dL Normal 14.0-18.0 [facility] Comment on above: Performed By: #### T ROP, CMP, BNP #### [facility] [address] [place] [address] Barbara Tomeka IG # 0.03 10e3/ul Normal 0.00-0.03 [facility] Comment on above: Performed By: #### T ROP, CMP, BNP #### [facility] [address] [id number] Barbara Tomeka IG % 0.3 % Normal 0.0-0.5 [facility] Comment on above: Performed By: #### T ROP, CMP, BNP #### [facility] [address] [id number] Barbara Tomeka Lymphocytes (Bld) [#/Vol] 2.7 103/ul Normal 1.2-3.8 [facility] Comment on above: Performed By: #### T ROP, CMP, BNP #### [facility] [address] [address] Barbara Tomeka Lymphocytes/100 WBC (Bld) 26.2 % Normal 20.5-60.0 [facility] Comment on above: Performed By: #### T ROP, CMP, BNP #### [facility] [address] [place], [place] [id number] Barbara Tomeka MANUAL DIFF REQ NO Normal [facility] Comment on above: Performed By: #### T ROP, CMP, BNP #### [facility] [address] [place], [place] [id number] Barbara Tomeka MCH (RBC) [Entitic mass] 30.2 pg Normal 25.9-34.0 [facility] Comment on above: Performed By: #### T ROP, CMP, BNP #### [facility] [address] [place], [place] [id number] Barbara Tomeka MCHC (RBC) [Mass/Vol] 32.4 g/dL Normal 29.9-35.2 [facility] Comment on above: Performed By: #### T ROP, CMP, BNP #### [facility] [address] [place], [place] [id number] Barbara Tomeka MCV (RBC) [Entitic vol] 93.0 fL Normal 80.0-94.0 [facility] Comment on above: Performed By: #### T ROP, CMP, BNP #### [facility] [address] [place], [place] [id number] Barbara Tomeka Monocytes (Bld) [#/Vol] 0.6 103/ul Normal 0.3-0.8 [facility] Comment on above: Performed By: #### T ROP, CMP, BNP #### [facility] [address] [id number] Barbara Tomeka Monocytes/100 WBC (Bld) 5.5 % Normal 1.7-12.0 [facility] Comment on above: Performed By: #### T ROP, CMP, BNP #### [facility] [address] [place] [address] Barbara Tomeka Neutrophils (Bld) [#/Vol] 6.8 103/ul Critically high 1.4-6.5 [facility] Comment on above: Performed By: #### T ROP, CMP, BNP #### [facility] [address] [place] [address] Barbara Tomeka Neutrophils/100 WBC (Bld) 66.4 % Normal 43.0-75.0 [facility] Comment on above: Performed By: #### T ROP, CMP, BNP #### [facility] [address] [place] [address] Barbara Tomeka Platelet mean volume (Bld) [Entitic vol] 9.3 fL Critically low 9.5-13.5 [facility] Comment on above: Performed By: #### T ROP, CMP, BNP #### [facility] [address] [place] [address] Barbara Tomeka Platelets (Bld) [#/Vol] 354 103/ul Normal 150-450 [facility] Comment on above: Performed By: #### T ROP, CMP, BNP #### [facility] [address] [place] [address] Barbara Tomeka RBC (Bld) [#/Vol] 5.17 106/ul Normal 4.70-6.10 [facility] Comment on above: Performed By: #### T ROP, CMP, BNP #### [facility] [address] [place] [address] Barbara Tomeka WBC (Bld) [#/Vol] 10.2 103/ul Normal 4.0-11.0 [facility] Comment on above: Performed By: #### T ROP, CMP, BNP #### [facility] [address] [place] [address] Barbara Eckert CRPon 02-28-2020 CRP [Mass/Vol] 0.6 mg/dL Normal <=1.0 [facility] Comment on above: Performed By: #### C RP #### [facility] [address] [place] [address] Barbara Eckert D-DIMERon 02-28-2020 D-DIMER COMMENTS SEE BELOW Normal [facility] Comment on above: Result Comment: Incr eases in D-Dimer concentration observed with thromboembolic events can be variable due to localization, size, and age of the thrombus. Therefore, a thromboembolic event cannot be diagnosed with certainty on the basis of the reference range. D-Dimers may also be elevated for a variety of disorders including: advanced age, , coronary disease, cancer, liver disease, infection, inflammation, hematoma, DIC, trauma, post-surgery, diabetes, thrombolytic or anticoagulant therapy, stress, and generalizd hospitalization. Performed By: #### D DIM #### [facility] [address] [place] [address] Barbara Eckert Fibrin D-dimer FEU IA (Bld) [Mass/Vol] 0.41 ug/mL Normal 0.19-0.50 [facility] Comment on above: Performed By: #### D DIM #### [facility] [address] [place] [address] Barbara Eckert FERRITINon 02-28-2020 Ferritin [Mass/Vol] 386.0 ng/mL Normal 17.9-464.0 [facility] Comment on above: Performed By: #### F ERR #### [facility] [address] [place] [address] Barbara Eckert LDHon 02-28-2020 LDH 226 U/L Critically high 122-222 [facility] Comment on above: Performed By: #### T ROP, CMP, BNP #### [facility] [address] [place] [address] Barbara Eckert PROCALCITONINon 02-28-2020 PCT header 1 SEE BELOW Normal [facility] Comment on above: Result Comment: PCT <0.5ng/mL: Systemic infection (sepsis) is not likely, local bacterial infection possible, low risk for progression to severe systemic infection (severe sepsis) Performed By: #### T ROP, CMP, BNP #### [facility] [address] [place] [address] Barbara Tomeka PCT header 2 SEE BELOW Normal [facility] Comment on above: Result Comment: PCT >/=0.5 and <2 ng/mL: Systemic infection (sepsis) is possible, moderate risk for progression to severe systemic infection (severe sepsis) Performed By: #### T ROP, CMP, BNP #### [facility] [address] [place] [address] Barbara Tomeka PCT header 3 SEE BELOW Normal [facility] Comment on above: Result Comment: PCT >/=2.0 and <10 ng/mL: Systemic infection (sepsis) is likely, unless other causes are known, high risk for progession to severe systemic infection(severe sepsis) Performed By: #### T ROP, CMP, BNP #### [facility] [address] [place] [address] Barbara Tomeka PCT header 4 SEE BELOW Normal [facility] Comment on above: Result Comment: PCT >/= 10 ng/mL: Important systemic inflammatory response almost exclusively due to severe bacterial sepsis or septic shock, high likelihood of severe sepsis or septic shock Performed By: #### T ROP, CMP, BNP #### [facility] [address] [place] [address] Barbara Tomeka PROCALCITONIN 0.05 ng/mL Normal 0.00-0.50 [facility] Comment on above: Performed By: #### T ROP, CMP, BNP #### [facility] [address] [place] [address] Barbara Eckert PROF 14(COMP METB)on 020 Albumin [Mass/Vol] 3.9 g/dL Normal 3.5-5.0 [facility] Comment on above: Performed By: #### T ROP, CMP, BNP #### [facility] [address] [place] [address] Barbara Eckert Albumin/Globulin [Mass ratio] 0.9 {ratio} Normal [facility] Comment on above: Performed By: #### T ROP, CMP, BNP #### [facility] [address] [place], [place] [address] Barbara Tomeka ALP [Catalytic activity/Vol] 85 U/L Normal 38-126 [facility] Comment on above: Performed By: #### T ROP, CMP, BNP #### [facility] [address] [place], [place] [address] Barbara Tomeka ALT [Catalytic activity/Vol] 45 U/L Normal 21-72 [facility] Comment on above: Performed By: #### T ROP, CMP, BNP #### [facility] [address] [place], [place] [address] Barbara Tomeka Anion gap [Moles/Vol] 16.6 mmol/L Normal [facility] Comment on above: Performed By: #### T ROP, CMP, BNP #### [facility] [address] [id number] Barbara Tomeka AST [Catalytic activity/Vol] 30 U/L Normal 17-59 [facility] Comment on above: Performed By: #### T ROP, CMP, BNP #### [facility] [address] [place], [place] [address] Barbara Tomeka Bilirubin Ql (U) 0.8 mg/dL Normal 0.2-1.3 [facility] Comment on above: Performed By: #### T ROP, CMP, BNP #### [facility] [address] [place], [place] [address] Barbara Tomeka Calcium [Mass/Vol] 9.5 mg/dL Normal 8.4-10.2 [facility] Comment on above: Performed By: #### T ROP, CMP, BNP #### [facility] [address] [place], [place] [address] Barbara Tomeka Chloride [Moles/Vol] 102 mmol/L Normal 98-107 [facility] Comment on above: Performed By: #### T ROP, CMP, BNP #### [facility] [address] [place], [place] [address] Barbara Tomeka CO2 [Moles/Vol] 24.5 mmol/L Normal 22.0-30.0 [facility] Comment on above: Performed By: #### T ROP, CMP, BNP #### [facility] [address] [place], [place] [address] Barbara Tomeka Creatinine [Mass/Vol] 1.31 mg/dL Critically high 0.66-1.25 [facility] Comment on above: Performed By: #### T ROP, CMP, BNP #### [facility] [address] [id number] Barbara Tomeka EGFR-AF BURKINAN >60 Normal >=60 [facility] Comment on above: Performed By: #### T ROP, CMP, BNP #### [facility] [address] [id number] Barbara Tomeka EGFR-NON AF BURKINAN 57 mL/min/1.73m2 Critically low >=60 [facility] Comment on above: Performed By: #### T ROP, CMP, BNP #### [facility] [address] [address] Barbara Tomeka Globulin (S) [Mass/Vol] 4.3 g/dL Normal [facility] Comment on above: Performed By: #### T ROP, CMP, BNP #### [facility] [address] [address] Barbara Tomeka Glucose [Mass/Vol] 166 mg/dL Critically high 74-[address] [facility] Comment on above: Performed By: #### T ROP, CMP, BNP #### [facility] [address] [address] Barbara Tomeka Potassium [Moles/Vol] 4.1 mmol/L Normal 3.4-5.0 [facility] Comment on above: Performed By: #### T ROP, CMP, BNP #### [facility] [address] [id number] Barbara Tomeka Protein [Mass/Vol] 8.2 g/dL Normal 6.1-8.2 [facility] Comment on above: Performed By: #### T ROP, CMP, BNP #### [facility] [address] [id number] Barbara Tomeka Sodium [Moles/Vol] 139 mmol/L Normal 137-145 [facility] Comment on above: Performed By: #### T ROP, CMP, BNP #### [facility] [address] [place] [address] Barbara Tomeka Urea nitrogen [Mass/Vol] 15.0 mg/dL Normal 9.0-20.0 [facility] Comment on above: Performed By: #### T ROP, CMP, BNP #### [facility] [address] [place] [address] Barbara Tomeka Urea nitrogen/Creatinine [Mass ratio] 11.5 mg/mg Normal [facility] Comment on above: Performed By: #### T ROP, CMP, BNP #### [facility] [address] [place], [place] [phone] Barbara Tomeka SED RATE WESTERGRENon 2019 SED RATE 26 mm/hr Critically high <=20 [facility] Comment on above: Performed By: #### S EDR #### [facility] [address] [place] [address] Barbara Tomeka SEDRH METHOD AND NORMAL CH PATRICIA 08/12/15. RESULTS ARE NOT AFFECTED BY HEMATOCRIT. Normal [facility] Comment on above: Performed By: #### S EDR #### [facility] [address] [place], [place] [id number] Barbara Eckert TROPONIN - Ion 02-28-2020 Troponin I.cardiac [Mass/Vol] SEE BELOW Normal [facility] Comment on above: Result Comment: <0.0 34 ng/ml NEGATIVE 0.034-0.119 INDETERMINATE 0.120 AMI CUT OFF Performed By: #### T ROP, CMP, BNP #### [facility] [address] [place] [address] Barbara Tomeka Troponin I.cardiac [Mass/Vol] ng/mL Normal <=0.034 [facility] Comment on above: Performed By: #### T ROP, CMP, BNP #### [facility] [address] [place] [address] Barbara Eckert UFH HEPARIN ASSAYon 02-28-20 20 UNFRACTIONATED HEPARIN >1.00 Critically high 0.30-0.7 0 [facility] Comment on above: Result Comment: [place] roxaban and Apixaban will interfere with the anti Xa assay used to monitor UFH and LMWH. RESULTS CHECKED AND CALLED. ACCURATELY READ BACK BY GISSELL HERRERA RN AT 2259. Performed By: #### 5 [id number], [id number] #### [facility] [address] [place] [address], [facility] UNFRACTIONATED HEPARIN >1.00 Critically high 0.30-0.7 0 [facility] Comment on above: Result Comment: [place] roxaban and Apixaban will interfere with the anti Xa assay used to monitor UFH and LMWH. RESULTS CHECKED AND CALLED. ACCURATELY READ BACK BY YOAV GRAVES RN @ [id number] Performed By: #### 3 [id number], [id number] #### [facility] [address] [place] [address], [facility] XR CHEST 1 Von 02-28-2020 XR CHEST 1 V PROCEDURE: XR CHEST 1 V, 02/28/2020 8:17 AM EDT CLINICAL INDICATIONS: Short of breath COMPARISON: 03/31/2017 TECHNIQUE: Upright AP portable chest 0837 hours FINDINGS: The heart is enlarged. Mediastinum unremarkable. Bronchial wall thickening is noted. Lung volumes diminished. Bibasilar subsegmental areas of atelectasis are favored. Acute consolidation, pleural effusion, or pneumothorax is not demonstrated. No acute osseous abnormality is seen. Regional soft tissues are unremarkable. IMPRESSION: 1. Cardiomegaly 2. Decreased lung volumes with bibasilar subsegmental atelectasis 3. Trace bronchial wall thickening. Mild congestion, subsegmental atelectasis, bronchitis may all present this pattern. Electronically authenticated by: KARY ABRAHAM Date: 2020-02-28 09:37 Normal [facility] Vital Signs Date Time Vital Sign Value Performing Clinician Jayson aguilar 03-01-2025 12:44-0400 Body mass index (BMI) [Ratio] 28.77 kg/m2 Dallin Harris MD Work Phone: [facility] 03-01-2025 12:44-0400 Body weight 87.09 kg Dallin Harris MD Work Phone: [facility] 03-01-2025 12:44-0400 Diastolic blood pressure 70 mm[Hg] Dallin Harris MD Work Phone: [facility] 03-01-2025 12:44-0400 Heart rate 60 /min Dallin Harris MD Work Phone: [facility] 03-01-2025 12:44-0400 SaO2% (BldA) [Mass fraction] 99 % Dallin Harris MD Work Phone: [facility] 03-01-2025 12:44-0400 Systolic blood pressure 120 mm[Hg] Dallin Harris MD Work Phone: [facility] 03-01-2025 12:12-0400 Body height 174 cm Noble Harris MD Work Phone: [facility] 03-01-2025 12:12-0400 Body mass index (BMI) [Ratio] 28.77 kg/m2 Noble Harris MD Work Phone: [facility] 03-01-2025 12:12-0400 Body weight 87.09 kg Noble Harris MD Work Phone: [facility] 03-01-2025 12:12-0400 Diastolic blood pressure 69 mm[Hg] Noble Harris MD Work Phone: [facility] 03-01-2025 12:12-0400 Heart rate 67 /min Noble Harris MD Work Phone: [facility] 03-01-2025 12:12-0400 Systolic blood pressure 116 mm[Hg] Noble Harris MD Work Phone: [facility] 02-13-2024 15:06-0400 Body height 172.7 cm Dallin Harris MD Work Phone: [facility] 02-13-2024 15:06-0400 Body mass index (BMI) [Ratio] 30.11 kg/m2 Dallin Harris MD Work Phone: [facility] 02-13-2024 15:06-0400 Body weight 89.81 kg Dallin Harris MD Work Phone: [facility] 02-13-2024 15:06-0400 Diastolic blood pressure 62 mm[Hg] Dallin Harris MD Work Phone: [facility] 02-13-2024 15:06-0400 Heart rate 64 /min Dallin Harris MD Work Phone: [facility] 02-13-2024 15:06-0400 SaO2% (BldA) [Mass fraction] 100 % Dallin Harris MD Work Phone: [facility] 02-13-2024 15:06-0400 Systolic blood pressure 128 mm[Hg] Dallin Harris MD Work Phone: [facility] 11-04-2023 10:57-0400 Body height 175.3 cm Noble Harris MD Work Phone: [facility] 11-04-2023 10:57-0400 Body mass index (BMI) [Ratio] 27.62 kg/m2 Noble Harris MD Work Phone: [facility] 11-04-2023 10:57-0400 Body weight 84.82 kg Noble Harris MD Work Phone: [facility] 11-04-2023 10:57-0400 Diastolic blood pressure 82 mm[Hg] Noble Harris MD Work Phone: [facility] 11-04-2023 10:57-0400 Heart rate 72 /min Noble Harris MD Work Phone: [facility] 11-04-2023 10:57-0400 Systolic blood pressure 130 mm[Hg] Noble Harris MD Work Phone: [facility] 03-04-2023 08:30-0400 Body height 172.7 cm Noble Harris MD Work Phone: [facility] 03-04-2023 08:30-0400 Body weight 84.82 kg Noble Harris MD Work Phone: [facility] 03-04-2023 08:30-0400 Diastolic blood pressure 58 mm[Hg] Noble Harris MD Work Phone: [facility] 03-04-2023 08:30-0400 Heart rate 100 /min Noble Harris MD Work Phone: [facility] 03-04-2023 08:30-0400 Systolic blood pressure 96 mm[Hg] Noble Harris MD Work Phone: [facility] 01-31-2023 12:57-0400 Body height 170.2 cm Dallin Harris MD Work Phone: [facility] 01-31-2023 12:57-0400 Body weight 84.82 kg Dallin Harris MD Work Phone: [facility] 01-31-2023 12:57-0400 Diastolic blood pressure 73 mm[Hg] Dallin Harris MD Work Phone: [facility] 01-31-2023 12:57-0400 Heart rate 74 /min Dallin Harris MD Work Phone: [facility] 01-31-2023 12:57-0400 SaO2% (BldA) [Mass fraction] 100 % Dallin Harris MD Work Phone: [facility] 01-31-2023 12:57-0400 Systolic blood pressure 110 mm[Hg] Dallin Harris MD Work Phone: [facility] 06-26-2022 22:00-0500 Diastolic blood pressure 76 mm[Hg] PHYSICIAN NO [facility] 06-26-2022 22:00-0500 Heart rate 137 /min PHYSICIAN NO [facility] 06-26-2022 22:00-0500 Respiratory rate 18 /min PHYSICIAN NO [facility] 06-26-2022 22:00-0500 SaO2% (BldA) [Mass fraction] 97 % PHYSICIAN NO [facility] 06-26-2022 22:00-0500 Systolic blood pressure 111 mm[Hg] PHYSICIAN NO [facility] 06-26-2022 18:44-0500 Body height 175.26 cm PHYSICIAN NO [facility] 06-26-2022 18:44-0500 Body temperature 98.4 [degF] PHYSICIAN NO [facility] 06-26-2022 18:44-0500 Body weight 88.9 kg PHYSICIAN NO [facility] 12-11-2021 11:06-0400 Diastolic blood pressure 71 mm[Hg] Dallin Harris MD Work Phone: [facility] 12-11-2021 11:06-0400 Systolic blood pressure 115 mm[Hg] Dallin Harris MD Work Phone: [facility] 12-11-2021 11:05-0400 Body height 172.7 cm Dallin Harris MD Work Phone: [facility] 12-11-2021 11:05-0400 Body weight 82.56 kg Dallin Harris MD Work Phone: [facility] 12-11-2021 11:05-0400 Heart rate 77 /min Dallin Harris MD Work Phone: [facility] 12-11-2021 11:05-0400 Respiratory rate 12 /min Dallin Harris MD Work Phone: [facility] 12-11-2021 11:05-0400 SaO2% (BldA) [Mass fraction] 99 % Dallin Harris MD Work Phone: [facility] Encounters Encounter Date Encounter Type Care Provider Facility Start: 03-01-2025 End: 03-01-2025 Patient encounter procedure Dallin Harris MD Work Phone: Cardiology Comment on above: Coronary artery dise ase involving [place] coronary artery of [place] heart without angina pectoris (Primary Dx); Paroxysmal atrial fibrillation (HCC); Primary hypertension; Mixed hyperlipidemia Primary hypertension (Primary Dx); Atypical atrial flutter (HCC); Paroxysmal atrial fibrillation (HCC); Coronary artery disease involving [place] coronary artery of [place] heart without angina pectoris; Status post ablation of atrial fibrillation; 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 Start: 03-01-2025 End: 03-01-2025 ambulatory DALLIN HARRIS MD Facility:[facility] Start: 03-01-2025 End: 03-01-2025 ambulatory NOBLE HARRIS Facility:[facility] Start: 02-25-2025 End: 02-25-2025 Orders Only Noble Harris MD Work Phone: Cardiology Comment on above: Abnormal EKG (Primar y Dx) Start: 02-02-2025 End: 02-03-2025 Refill Dallin Harris MD Work Phone: Cardiology Comment on above: Refill Request Start: 05-15-2024 End: 05-18-2024 Refill Dallin Harris MD Work Phone: Cardiology Comment on above: Refill Request Start: 04-06-2024 End: 04-06-2024 Bamboo flowsboyd Madrid DO Work Phone: [facility] [employer] [facility] Start: 04-06-2024 End: 04-06-2024 Bamvanessa flowsboyd Madrid DO Work Phone: [facility] Start: 04-06-2024 End: 04-06-2024 Office outpatient visit 25 minutes Jr. Cassandra Madrid DO Work Phone: [facility] Comment on above: Acute pain of right shoulder (Primary Dx); History of arthroscopy of right shoulder Start: 04-06-2024 End: 04-06-2024 ambulatory CASSANDRA JULES Not Available Start: 03-27-2024 End: 03-27-2024 Bamboo flowsheet Odilia Prado [employer] [facility] Start: 03-27-2024 End: 03-27-2024 Bamboo flowsheet Odilia Phamy [employer] [facility] Start: 03-27-2024 End: 03-27-2024 ambulatory ODILIA EVE [facility] Comment on above: Acute pain of right shoulder (Primary Dx); S/P arthroscopy of right shoulder; Shoulder stiffness, right Start: 03-25-2024 End: 03-25-2024 Bamboo flowsheet Odilia Carcamobley [employer] [facility] Start: 03-25-2024 End: 03-25-2024 Bamboo flowsheet Odilia Carcamobley [employer] [facility] Start: 03-25-2024 End: 03-25-2024 ambulatory ODILIA PHAMY [facility] Comment on above: Acute pain of right shoulder (Primary Dx); S/P arthroscopy of right shoulder; Shoulder stiffness, right Start: 03-19-2024 End: 03-19-2024 Bamboo flowsheet Magda Manning [employer] [facility] Start: 03-19-2024 End: 03-19-2024 Bamboo flowsheet Magda Manning [employer] [facility] Start: 03-19-2024 End: 03-19-2024 ambulatory MAGDA MANNING [facility] Comment on above: Acute pain of right shoulder (Primary Dx); S/P arthroscopy of right shoulder Start: 03-18-2024 End: 03-18-2024 Bamboo flowsheet Odilia Carcamobley [employer] [facility] Start: 03-18-2024 End: 03-18-2024 Bamboo flowsheet Odilia Carcamobley [employer] [facility] Start: 03-18-2024 End: 03-18-2024 ambulatory ODILIA PHAMY [facility] Comment on above: Acute pain of right shoulder (Primary Dx); S/P arthroscopy of right shoulder; Shoulder stiffness, right Start: 03-13-2024 End: 03-13-2024 Bamboo flowsheet Odilia Carcamobley [employer] [facility] Start: 03-13-2024 End: 03-13-2024 Bamboo flowsheet Odilia Carcamobley [employer] [facility] Start: 03-13-2024 End: 03-13-2024 ambulatory ODILIA CARCAMOBLEY [facility] Comment on above: Acute pain of right shoulder (Primary Dx); S/P arthroscopy of right shoulder; Shoulder stiffness, right Start: 03-11-2024 End: 03-11-2024 Bamboo flowsheet Odilia Carcamobley [employer] [facility] Start: 03-11-2024 End: 03-11-2024 Bamboo flowsheet Odilia Prado [employer] [facility] Start: 03-11-2024 End: 03-11-2024 ambulatory ODILIA PRADO [facility] Comment on above: Acute pain of right shoulder (Primary Dx); S/P arthroscopy of right shoulder; Shoulder stiffness, right Start: 03-06-2024 End: 03-06-2024 Bamboo flowsheet Stephen Barrios [employer] [facility] Start: 03-06-2024 End: 03-06-2024 Bamboo flowsheet Stephen Barrios [employer] [facility] Start: 03-06-2024 End: 03-06-2024 ambulatory STEPHEN BARRIOS [facility] Comment on above: Acute pain of right shoulder (Primary Dx); S/P arthroscopy of right shoulder; Shoulder stiffness, right Start: 03-05-2024 End: 03-05-2024 Bamboo flowsheet Chari Boyle PA Work Phone: [facility] Start: 03-05-2024 End: 03-05-2024 Bamboo flowsheet Chari Boyle PA Work Phone: [facility] Start: 03-05-2024 End: 03-05-2024 Postop follow up visit related to original px Chari Boyle PA Work Phone: [facility] Comment on above: S/P arthroscopy of r ight shoulder (Primary Dx) Start: 03-05-2024 End: 03-05-2024 ambulatory CHARI BOYEL Not Available Start: 03-04-2024 End: 03-04-2024 Bamboo flowsheet Gemini Sy PT Work Phone: [facility] Start: 03-04-2024 End: 03-04-2024 Bamboo flowsheet Gemini Sy PT Work Phone: [facility] Start: 03-04-2024 End: 03-04-2024 ambulatory GEMINI SY [facility] Comment on above: Acute pain of right shoulder (Primary Dx); S/P arthroscopy of right shoulder; Shoulder stiffness, right Start: 03-02-2024 End: 03-02-2024 Bamboo flowsheet Stephen Barrios [employer] [facility] Start: 03-02-2024 End: 03-02-2024 Bamboo flowsheet Stephen Barrios [employer] [facility] Start: 03-02-2024 End: 03-02-2024 ambulatory STEPHEN BARRIOS [facility] Comment on above: Acute pain of right shoulder (Primary Dx); S/P arthroscopy of right shoulder; Shoulder stiffness, right Start: 02-28-2024 End: 02-28-2024 Bamboo flowsheet Paula Izaguirre PT [facility] Start: 02-28-2024 End: 02-28-2024 Bamboo flowsheet Paula Izaguirre PT [facility] Start: 02-28-2024 End: 02-28-2024 ambulatory PAULA IZAGUIRRE [facility] Comment on above: Acute pain of right shoulder (Primary Dx); S/P arthroscopy of right shoulder; Shoulder stiffness, right Start: 02-26-2024 End: 02-26-2024 Bamboo flowsheet Odilia Donabley [employer] [facility] Start: 02-26-2024 End: 02-26-2024 Bamboo flowsheet Odilia Kelbley [employer] [facility] Start: 02-26-2024 End: 02-26-2024 ambulatory ODILIA DONABLEY [facility] Comment on above: Acute pain of right shoulder (Primary Dx); S/P arthroscopy of right shoulder; Shoulder stiffness, right Start: 02-24-2024 End: 02-24-2024 ambulatory GEMINI SY Not Available Start: 02-21-2024 End: 02-21-2024 ambulatory ODILIA KELBLEY Not Available Start: 02-19-2024 End: 02-19-2024 ambulatory ODILIA KELBLEY Not Available Start: 02-17-2024 End: 02-17-2024 ambulatory GEMINI Vikash SY Not Available Start: 02-14-2024 End: 02-14-2024 ambulatory ODILIA KELBLEY Not Available Start: 02-13-2024 End: 02-13-2024 Patient encounter procedure Dallin Harris MD Work Phone: Cardiology Comment on above: Encounter for follow -up (Primary Dx); Paroxysmal atrial fibrillation (HCC); Coronary artery disease involving [place] coronary artery of [place] heart without angina pectoris Start: 02-12-2024 End: 02-12-2024 ambulatory ODILIA KELBLEY Not Available Start: 02-10-2024 End: 02-10-2024 ambulatory GEMINI Vikash [place] Not Available Start: 02-07-2024 End: 02-07-2024 ambulatory PAULA IZAGUIRRE Not Available Start: 02-05-2024 End: 02-05-2024 ambulatory ODILIA KELBLEY Not Available Start: 02-03-2024 End: 02-03-2024 ambulatory GEMINI Vikash [place] Not Available Start: 01-31-2024 End: 01-31-2024 ambulatory CHARI BOYLE Not Available Start: 01-29-2024 End: 01-29-2024 ambulatory GEMINI Vikash [place] Not Available Start: 01-27-2024 End: 01-27-2024 ambulatory RUPALI REYES Not Available Start: 01-24-2024 End: 01-27-2024 ambulatory ODILIA KELBLEY Not Available Start: 01-22-2024 End: 01-22-2024 ambulatory ODILIA KELBLEY Not Available Start: 01-20-2024 End: 01-20-2024 ambulatory GEMINI Vikash [place] Not Available Start: 01-17-2024 End: 01-17-2024 ambulatory ODILIA KELBLEY Not Available Start: 01-15-2024 End: 01-15-2024 ambulatory ODILIA KELBLEY Not Available Start: 01-13-2024 End: 01-13-2024 ambulatory GEMINI Vikash [place] Not Available Start: 01-03-2024 End: 01-03-2024 ambulatory CHARI BOYLE Not Available Start: 11-27-2023 End: 11-27-2023 ambulatory ARDEN PRADHAN Not Available Start: 11-06-2023 End: 11-06-2023 ambulatory CASSANDRA JULES Not Available Start: 11-04-2023 End: 11-04-2023 Orders Only Noble Harris MD Work Phone: Cardiology Comment on above: Paroxysmal atrial fi brillation (HCC) (Primary Dx) Primary hypertension (Primary Dx); Paroxysmal atrial fibrillation (HCC); Persistent atrial fibrillation (HCC); Coronary artery disease involving [place] coronary artery of [place] heart without angina pectoris; Typical atrial flutter (HCC); Acute on chronic systolic congestive heart failure (HCC); Chronic anticoagulation Forms Start: 10-23-2023 Orders Only Dallin Harris MD Work Phone: Cardiology Comment on above: Coronary artery dise ase, unspecified vessel or lesion type, unspecified whether angina present, unspecified whether [place] or transplanted heart (Primary Dx); Atrial fibrillation, chronic (HCC) Mixed hyperlipidemia (Primary Dx) Start: 09-06-2023 Arrhythmia TTM Noble villarreal MD Work Phone: [facility] Department Start: 09-06-2023 Recurring Plan Noble villarreal MD Work Phone: [facility] Start: 09-04-2023 End: 09-04-2023 CASSANDRA joyce JR. Not Available Start: 08-30-2023 Arrhythmia GUDELIAM Noble villarreal MD Work Phone: [facility] Department Start: 08-30-2023 Recurring Plan Noble villarreal MD Work Phone: [facility] Start: 08-23-2023 Arrhythmia GUDELIAM Noble villarreal MD Work Phone: [facility] Department Start: 08-23-2023 Recurring Plan Noble villarreal MD Work Phone: [facility] Start: 08-16-2023 Arrhythmia TTM Noble villarreal MD Work Phone: [facility] Department Start: 08-16-2023 Recurring Plan Noble villarreal MD Work Phone: [facility] Start: 08-08-2023 Arrhythmia LYN villarreal MD Work Phone: [facility] Department Start: 08-08-2023 Recurring Plan Noble villarreal MD Work Phone: [facility] Start: 06-05-2023 ambulatory Noble villarreal MD Work Phone: Cardiology Comment on above: Transmitter (90 days ) Start: 06-05-2023 Arrhythmia TTM Noble villarreal MD Work Phone: [facility] Department Start: 06-05-2023 Recurring Plan Noble villarreal MD Work Phone: [facility] Start: 06-03-2023 ambulatory Noble villarreal MD Work Phone: Cardiology Comment on above: Patient Education (E PS-PVI) Start: 03-28-2023 Orders Only Noble villarreal MD Work Phone: Cardiology Comment on above: Paroxysmal atrial fi brillation (HCC) (Primary Dx) Start: 03-21-2023 Telephone encounter Noble miller MD Work Phone: Cardiology Comment on above: Patient Update Coronary artery dise ase involving [place] coronary artery of [place] heart without angina pectoris (Primary Dx); Acute on chronic systolic congestive heart failure (HCC) Start: 03-20-2023 ambulatory Noble villarreal MD Work Phone: Cardiology Comment on above: Ablation Start: 03-04-2023 End: 03-04-2023 Patient encounter procedure oNble Harris MD Work Phone: Cardiology Comment on above: Primary hypertension (Primary Dx); Coronary artery disease involving [place] coronary artery of [place] heart without angina pectoris; Typical atrial flutter (HCC); Paroxysmal atrial fibrillation (HCC); Acute on chronic systolic congestive heart failure (HCC); Persistent atrial fibrillation (HCC); Chronic anticoagulation; Obesity, Class I, BMI 30-34.9 Start: 02-04-2023 Orders Only Noble villarreal MD Work Phone: Cardiology Comment on above: Chronic a-fib (HCC) (Primary Dx) Start: 01-31-2023 End: 01-31-2023 Patient encounter procedure Dallin Harris MD Work Phone: Cardiology Comment on above: Coronary artery dise ase involving [place] coronary artery of [place] heart without angina pectoris (Primary Dx); Mixed hyperlipidemia; Paroxysmal atrial fibrillation (HCC) Start: 10-12-2022 Orders Only Dallin aHrris MD Work Phone: Cardiology Comment on above: SOB (shortness of br eath) (Primary Dx) Start: 09-02-2022 Refill Dallin Harris MD Work Phone: Cardiology Comment on above: Refill Request Start: 06-26-2022 End: 06-28-2022 Evaluation and management of inpatient Randell Fields Facility:[facility] Start: 06-26-2022 Evaluation and manag ement of inpatient PHYSICIAN [facility] Start: 06-20-2022 Refill Dallin Harris MD Work Phone: Cardiology Comment on above: Refill Request Start: 06-03-2022 Refill Dallin Harris MD Work Phone: Cardiology Comment on above: Refill Request Start: 12-11-2021 End: 12-11-2021 Patient encounter procedure Dallin Harris MD Work Phone: Cardiology Comment on above: Paroxysmal atrial fi brillation (HCC) (Primary Dx); Coronary artery disease involving [place] coronary artery of [place] heart without angina pectoris; Essential hypertension; Mixed hyperlipidemia Start: 05-06-2020 End: 05-07-2020 Patient encounter procedure DOCTOR MIS Facility:[facility] Start: 04-26-2020 End: 04-27-2020 Patient encounter procedure DOCTOR MISC Facility:[facility] Start: 04-19-2020 End: 04-20-2020 Patient encounter procedure DOCTOR MUSCOGEE Facility:[facility] Start: 02-28-2020 End: 03-02-2020 Evaluation and management of inpatient MENDEZ ALI Facility:[facility] Start: 02-28-2020 End: 02-28-2020 Patient encounter procedure KARY ABRAHAM Facility: Procedures Date Procedure Procedure Detail Performing Clinician Start: 02-13-2024 Lipid 1996 panel - S denise or Plasma Dallin Harris MD Work Phone: Start: 09-06-2023 ARRHYTHMIA TRANS TEL E MEASURE Noble Harris MD Work Phone: Start: 08-30-2023 ARRHYTHMIA TRANS TEL E MEASURE Noble Harris MD Work Phone: Start: 08-23-2023 ARRHYTHMIA TRANS TEL E MEASURE Noble Harris MD Work Phone: Start: 08-16-2023 ARRHYTHMIA TRANS TEL E MEASURE Noble Harris MD Work Phone: Start: 08-08-2023 ARRHYTHMIA TRANS TEL E MEASURE Noble Harris MD Work Phone: Start: 06-05-2023 ARRHYTHMIA TRANS TEL E MEASURE Noble Harris MD Work Phone: Start: 01-31-2023 Lipid 1996 panel - S denise or Plasma Noble Harris MD Work Phone: Start: 06-26-2022 Plain chest X-ray PHYSI RAHEEM NO FAMILY Start: 03-02-2020 FLUOROSCOPY OF MULTI PLE CORONARY ARTERIES USING OTH CONTRAST CASSANDRA FARMER Start: 03-01-2020 [facility], Single EHAB A TORIE Start: 03-01-2020 ULTRASONOGRAPHY OF R IGHT AND LEFT HEART, TRANSESOPHAGEAL EHAB A TORIE SARS-CoV-2, Influenz a & RSV (PCR) PHYSICIAN NO FAMILY Plan of Treatment Date Care Activity Detail Author Start: 02-12-2029 Lipid panel Lipid Screening [facility] Start: 02-01-2028 Lipid 1996 panel - Serum or Plasma Lipid Screening [facility] Start: 02-01-2028 Lipid panel Lipid Screening [facility] Start: 02-01-2028 LIPID SCREEN LIPID SCREEN [facility] Start: 02-12-2027 Diabetes Screening Diabetes Screening [facility] Start: 06-03-2026 Diabetes Screening Diabetes Screening [facility] Start: 03-01-2026 End: 05-31-2026 CBC panel - Blood by Automated count COMPLETE BLOOD COUNT Lab Routine Coronary artery disease involving [place] coronary artery of [place] heart without angina pectoris Mixed hyperlipidemia Expected: 03/01/2026, Expires: 05/31/2026 [facility] Comment on above: Expected: 03/01/2026, Expires: Start: 03-01-2026 End: 05-31-2026 Comprehensive metabolic 2000 panel - Serum or Plasma COMPREHENSIVE METABOLIC PANEL Lab Routine Coronary artery disease involving [place] coronary artery of [place] heart without angina pectoris Mixed hyperlipidemia Expected: 03/01/2026, Expires: 05/31/2026 [facility] Comment on above: Expected: 03/01/2026, Expires: Start: 03-01-2026 End: 05-31-2026 Lipid 1996 panel - Serum or Plasma LIPID PANEL, FASTING Lab Routine Coronary artery disease involving [place] coronary artery of [place] heart without angina pectoris Mixed hyperlipidemia Expected: 03/01/2026, Expires: 05/31/2026 [facility] Comment on above: Expected: 03/01/2026, Expires: Start: 01-31-2026 DIABETES SCREEN DIABETES SCREEN [facility] Start: 01-31-2026 Diabetes Screening Diabetes Screening [facility] Start: 06-01-2025 End: 08-31-2025 Lipid 1996 panel - Serum or Plasma LIPID PANEL, FASTING Lab Routine Coronary artery disease involving [place] coronary artery of [place] heart without angina pectoris Paroxysmal atrial fibrillation (HCC) Primary hypertension Mixed hyperlipidemia Expected: 06/01/2025, Expires: 08/31/2025 [facility] Comment on above: Expected: 06/01/2025, Expires: Start: 03-08-2025 Influenza vaccination Influenza Vaccine (#1) [facility] Start: 03-01-2025 End: 05-31-2025 CBC panel - Blood by Automated count COMPLETE BLOOD COUNT Lab Routine Coronary artery disease involving [place] coronary artery of [place] heart without angina pectoris Paroxysmal atrial fibrillation (HCC) Primary hypertension Mixed hyperlipidemia Expected: 03/01/2025, Expires: 05/31/2025 [facility] Work Phone: Comment on above: Expected: 03/01/2025, Expires: Start: 03-01-2025 End: 05-31-2025 Comprehensive metabolic 2000 panel - Serum or Plasma COMPREHENSIVE METABOLIC PANEL Lab Routine Coronary artery disease involving [place] coronary artery of [place] heart without angina pectoris Paroxysmal atrial fibrillation (HCC) Primary hypertension Mixed hyperlipidemia Expected: 03/01/2025, Expires: 05/31/2025 [facility] Comment on above: Expected: 03/01/2025, Expires: Start: 03-01-2025 End: 03-01-2025 Patient encounter procedure Cardiology Comment on above: Encounter for follow-up [Z09] Primary hypertension [I10] Start: 03-01-2025 End: 03-01-2025 Follow-up encounter 03/01/2025 11:30 AM EDT Procedure Cardiology [address] [place] [address] Encounter for follow-up [Z09] Cardiology Comment on above: Encounter for follow-up [Z09] Start: 02-12-2025 BP Controlled (<130/80) BP Controlled (<130/80) [facility] in Start: 02-12-2025 Hepatitis B surface antibody level LDL Cholesterol [facility] Start: 04-06-2024 End: 04-06-2024 Patient encounter procedure [facility] Comment on above: Arrived Start: 03-27-2024 End: 03-27-2024 ambulatory 03/27/2024 7:00 AM EDT Treatment [facility] [address] [facility] [address] [place] [address] Odilia Prado, [employer] [facility] Start: 03-25-2024 End: 03-25-2024 ambulatory [facility] Start: 03-19-2024 End: 03-19-2024 ambulatory [facility] Comment on above: Acute pain of right shoulder (Primary Dx ) Start: 03-18-2024 End: 03-18-2024 ambulatory [facility] Comment on above: Arrived Start: 03-16-2024 End: 03-16-2024 ambulatory 03/16/2024 7:00 AM EDT Treatment [facility] [address] [facility] [address] [place] [address] Stephen Barrios, [employer] [facility] Start: 03-13-2024 End: 03-13-2024 ambulatory 03/13/2024 7:00 AM EDT Treatment [facility] [address] [facility] [address] [place] [address] Odilia Prado, [employer] [facility] Start: 03-11-2024 End: 03-11-2024 ambulatory [facility] Comment on above: Arrived Start: 03-08-2024 Covid-19 Vaccine ( season) Covid-19 Vaccine ( season) [facility] Start: 03-08-2024 Influenza vaccination [facility] Start: 03-06-2024 End: 03-06-2024 ambulatory 03/06/2024 8:30 AM EDT Treatment [facility] [address] [facility] [address] [place] [address] Stephen Barrios, [employer] Acute pain of right shoulder (Primary Dx); S/P arthroscopy of right shoulder; Shoulder stiffness, right [facility] Comment on above: Acute pain of right shoulder (Primary Dx ); S/P arthroscopy of right shoulder; Shoulder stiffness, right Start: 03-06-2024 End: 03-06-2024 Patient encounter procedure 03/06/2024 8:30 AM EDT Office Visit [facility] [address] [place] [id number] Chari Boyle, PA [address] [facility] [address] [place] [address] [facility] Start: 03-05-2024 End: 03-05-2024 Patient encounter procedure [facility] Comment on above: S/P arthroscopy of right shoulder (Prima ry Dx) Start: 03-04-2024 BP CONTROLLED (<130/80) BP CONTROLLED (<130/80) [facility] Start: 03-04-2024 End: 03-04-2024 ambulatory [facility] Comment on above: Arrived Start: 03-02-2024 End: 03-02-2024 ambulatory [facility] Comment on above: Acute pain of right shoulder (Primary Dx ); S/P arthroscopy of right shoulder; Shoulder stiffness, right Start: 02-28-2024 End: 02-28-2024 ambulatory 02/28/2024 7:00 AM EDT Treatment [facility] [address] [facility] [address] [place] [address] Paula Izaguirre, PT [facility] Start: 02-26-2024 End: 02-26-2024 ambulatory 02/26/2024 7:30 AM EDT Treatment [facility] [address] [facility] [place] [address] Odilia Prado, [employer] Arrived [facility] Comment on above: Arrived Start: 02-13-2024 End: 02-13-2024 Patient encounter procedure 02/13/2024 3:00 PM EDT Office Visit Cardiology [address] [place], [place] [id number] Dallin Harris MD [address] [place] [address] Dx: Coronary artery disease involving [place] coronary artery of [place] heart without angina pectoris; Mixed hyperlipidemia; Paroxysmal atrial fibrillation (HCC) Cardiology Comment on above: Dx: Coronary artery disease involving na tive coronary artery of [place] heart without angina pectoris; Mixed hyperlipidemia; Paroxysmal atrial fibrillation (HCC) Start: 02-13-2024 End: 02-13-2024 ambulatory [facility] J1-4 Dra mil Wright Comment on above: Dx: Coronary artery disease involving na tive coronary artery of [place] heart without angina pectoris; Mixed hyperlipidemia; Paroxysmal atrial fibrillation (HCC) Start: 02-01-2024 BP CONTROLLED (<130/80) BP CONTROLLED (<130/80) [facility] Start: 02-01-2024 Hepatitis B surface antibody level LDL CHOLESTEROL [facility] Start: 10-23-2023 End: 02-22-2024 CBC panel - Blood by Automated count COMPLETE BLOOD COUNT Lab Routine Mixed hyperlipidemia Expected: 10/23/2023, Expires: 02/22/2024 [facility] Work Phone: Comment on above: Expected: 10/23/2023, Expires: Start: 10-23-2023 End: 02-22-2024 Comprehensive metabolic 2000 panel - Serum or Plasma COMPREHENSIVE METABOLIC PANEL Lab Routine Mixed hyperlipidemia Expected: 10/23/2023, Expires: 02/22/2024 [facility] Work Phone: Comment on above: Expected: 10/23/2023, Expires: Start: 10-23-2023 End: 02-22-2024 Lipid 1996 panel - Serum or Plasma LIPID PANEL BASIC Lab Routine Mixed hyperlipidemia Expected: 10/23/2023, Expires: 02/22/2024 [facility] Work Phone: Comment on above: Expected: 10/23/2023, Expires: 4 Start: 07-08-2023 Behavioral Health Screening Behavioral Health Screening [facility] Start: 07-08-2023 Depression Assessment Depression Assessment [facility] Start: 06-19-2023 DIABETES SCREEN DIABETES SCREEN [facility] Start: 06-03-2023 End: 03-26-2024 Basic metabolic 2000 panel - Serum or Plasma BASIC METABOLIC PNL Lab Routine Paroxysmal atrial fibrillation (HCC) Expected: 06/03/2023, Expires: 03/26/2024 [facility] Work Phone: Comment on above: Expected: 06/03/2023, Expires: 4 Start: 06-03-2023 End: 03-28-2024 CBC panel - Blood by Automated count CBC Lab Routine Paroxysmal atrial fibrillation (HCC) Expected: 06/03/2023, Expires: 03/28/2024 [facility] Work Phone: Comment on above: Expected: 06/03/2023, Expires: 4 Start: 06-03-2023 End: 03-28-2024 TYPE + SCREEN TYPE + SCREEN Blood Bank Routine Paroxysmal atrial fibrillation (HCC) Expected: 06/03/2023, Expires: 03/28/2024 [facility] Work Phone: Comment on above: Expected: 06/03/2023, Expires: Start: 03-08-2023 Covid-19 Vaccine () Covid-19 Vaccine () [facility] Start: 03-08-2023 Influenza vaccination [facility] Start: 01-11-2023 End: 03-13-2023 CBC panel - Blood by Automated count CBC Lab Routine SOB (shortness of breath) Expected: 01/11/2023, Expires: 03/13/2023 [facility] Work Phone: Comment on above: Expected: 01/11/2023, Expires: 3 Start: 01-11-2023 End: 03-13-2023 Comprehensive metabolic 2000 panel - Serum or Plasma COMP METABOLIC PANEL Lab Routine SOB (shortness of breath) Expected: 01/11/2023, Expires: 03/13/2023 [facility] Work Phone: Comment on above: Expected: 01/11/2023, Expires: 3 Start: 01-11-2023 End: 03-13-2023 Lipid 1996 panel - Serum or Plasma LIPID PANEL BASIC Lab Routine SOB (shortness of breath) Expected: 01/11/2023, Expires: 03/13/2023 [facility] Work Phone: Comment on above: Expected: 01/11/2023, Expires: 3 Start: 12-11-2022 BP CONTROLLED (<130/80) BP CONTROLLED (<130/80) [facility] Start: 2022 PROSTATE CANCER SCREENING DISCUSSION PROSTATE CANCER SCREENING DISCUSSION [facility] Start: 2022 Prostate specific antigen measurement Prostate Cancer Screening Discussion [facility] Start: 07-08-2022 DEPRESSION ASSESSMENT DEPRESSION ASSESSMENT [facility] Start: 06-27-2022 Blood chemistry [facility] Start: 06-27-2022 [facility] Start: 06-26-2022 Legionella pneumophila Ag [Presence] in Urine [facility] Start: 06-26-2022 Respiratory pathogens DNA and RNA panel - Nasopharynx by ERICH with non-probe detection [facility] Start: 06-26-2022 End: 06-26-2022 [facility] Start: 06-26-2022 Hospital admission [facility] Start: 03-08-2022 Influenza vaccination [facility] Start: 07-08-2021 DEPRESSION ASSESSMENT DEPRESSION ASSESSMENT [facility] Start: 2017 SHINGRIX VACCINE (1 of 2) SHINGRIX VACCINE (1 of 2) [facility] Start: 2012 COLOGUARD (FIT-DNA) COLOGUARD (FIT-DNA) [facility] Start: 2012 Colonoscopy COLONOSCOPY [facility] Start: 2012 COLORECTAL CANCER SCREENING COLORECTAL CANCER SCREENING [facility] Start: [address] COLONOGRAPHY [facility] Start: 2012 FECAL OCCULT BLOOD FECAL OCCULT BLOOD [facility] Start: 2012 Prostate specific antigen measurement Prostate Cancer Screening Discussion [facility] Start: 2012 Screening for malignant neoplasm of colon [facility] Start: 2012 SIGMOIDOSCOPY SIGMOIDOSCOPY [facility] Start: 2002 LIPID SCREEN LIPID SCREEN [facility] Start: 1986 Hepatitis B Vaccine (1 of 3 - 19+ 3-dose series) Hepatitis B Vaccine (1 of 3 - 19+ 3-dose series) [facility] Start: 1986 Pneumococcal Vaccine: 50+ (1 of 2 - PCV) Pneumococcal Vaccine: 50+ (1 of 2 - PCV) [facility] Start: 1986 Urine microalbumin profile [facility] Start: 1985 ANNUAL PCP TEAM CHRONIC DISEASE VISIT ANNUAL PCP TEAM CHRONIC DISEASE VISIT [facility] Start: 1985 Anxiety Screening Anxiety Screening [facility] Start: 1985 BP Controlled (<130/80) BP Controlled (<130/80) [facility] Start: 1985 Depression Screening Depression Screening [facility] Start: 1985 Hepatitis B surface antibody level LDL CHOLESTEROL [facility] Start: 1985 HEPATITIS C SCREENING HEPATITIS C SCREENING [facility] Start: 1985 Hepatitis C screening Hepatitis C Screening [facility] Start: 1985 HIV SCREENING HIV SCREENING [facility] Start: 1985 HIV screening HIV Screening [facility] Start: 1979 Adult depression screening assessment DEPRESSION SCREENING [facility] Start: 1973 PNEUMOCOCCAL (1 - PCV) PNEUMOCOCCAL (1 - PCV) [facility] Start: 1973 Pneumococcal vaccination [facility] Start: 1972 COVID-19 VACCINE (#1) COVID-19 VACCINE (#1) [facility] Start: 02-11-1968 COVID-19 VACCINE (#1) COVID-19 VACCINE (#1) [facility] Start: 1967 HEPATITIS B (1 of 3 - 3-dose series) HEPATITIS B (1 of 3 - 3-dose series) [facility] Start: 1967 Hepatitis B Vaccine (1 of 3 - 3-dose series) Hepatitis B Vaccine (1 of 3 - 3-dose series) [facility] End: 10-13-2023 ECG COMPLETE ECG COMPLETE ECG Routine SOB (shortness of breath) 1 Occurrences starting 10/12/2022 until 10/13/2023 [facility] Work Phone: Comment on above: 1 Occurrences starting 10/12/2022 until 10/13/2023 End: 02-05-2024 ECG COMPLETE ECG COMPLETE ECG Routine Chronic a-fib (HCC) 1 Occurrences starting 02/04/2023 until 02/05/2024 [facility] Work Phone: Comment on above: 1 Occurrences starting 02/04/2023 until 02/05/2024 End: 03-28-2024 ECG COMPLETE ECG COMPLETE ECG Routine Paroxysmal atrial fibrillation (HCC) 1 Occurrences starting 03/28/2023 until 03/28/2024 [facility] Work Phone: Comment on above: 1 Occurrences starting 03/28/2023 until 03/28/2024 End: 10-22-2024 ECG COMPLETE ECG COMPLETE ECG Routine Coronary artery disease, unspecified vessel or lesion type, unspecified whether angina present, unspecified whether [place] or transplanted heart Atrial fibrillation, chronic (HCC) 1 Occurrences starting 10/23/2023 until 10/22/2024 [facility] Work Phone: Comment on above: 1 Occurrences starting 10/23/2023 until 10/22/2024 ECG COMPLETE ECG COMPLETE ECG Routine Primary hypertension Paroxysmal atrial fibrillation (HCC) 1 Occurrences starting 11/04/2023 [facility] Work Phone: Comment on above: 1 Occurrences starting 11/04/2023 End: 02-12-2025 ECG COMPLETE ECG COMPLETE ECG Routine Encounter for follow-up Paroxysmal atrial fibrillation (HCC) 1 Occurrences starting 02/13/2024 until 02/12/2025 [facility] Work Phone: Comment on above: 1 Occurrences starting 02/13/2024 until 02/12/2025 End: 02-25-2026 ECG COMPLETE ECG COMPLETE ECG Routine Abnormal EKG 1 Occurrences starting 02/25/2025 until 02/25/2026 [facility] Work Phone: Comment on above: 1 Occurrences starting 02/25/2025 until 02/25/2026 End: 03-01-2026 ECG COMPLETE ECG COMPLETE ECG Routine Coronary artery disease involving [place] coronary artery of [place] heart without angina pectoris Mixed hyperlipidemia 1 Occurrences starting 03/01/2025 until 03/01/2026 [facility] Comment on above: 1 Occurrences starting 03/01/2025 until 03/01/2026 End: 10-13-2023 Echocardiography ECHO Cardiology Routine SOB (shortness of breath) 1 Occurrences starting 10/12/2022 until 10/13/2023 [facility] Work Phone: Comment on above: 1 Occurrences starting 10/12/2022 until 10/13/2023 Mycoplasma pneumonia e IgM Ab [Units/volume] in Serum [facility] Work Phone: End: 04-19-2024 NM CARDIAC PERF STRESS/PHARM NM CARDIAC PERF STRESS/PHARM Radiology Routine Coronary artery disease involving [place] coronary artery of [place] heart without angina pectoris 1 Occurrences starting 03/21/2023 until 04/19/2024 [facility] Work Phone: Comment on above: 1 Occurrences starting 03/21/2023 until 04/19/2024 [facility] Payers Date Payer Category Payer Unknown [employer] [id number] 2023-Present [phone] [address] [address] [place] [address] [id number] 2022 Unknown [id number] 2022 Self-pay [id number] 2013 Private Health Insurance [facility] [employer] [id number] 2013-Present [phone] [address] [address] [place] [address] O [id number] [id number] 2013 Private Health Insurance [id number]. [id number] 1967 Unknown [id number] 2.16.840.1.821577.3.579. 2.647 1967 Unknown [id number] 2.16.840.1.870501.3.579. 2.593 1967 Unknown [id number] 2.16.840.1.881251.3.579. 2.593 1967 Unknown [id number] 2.16.840.1.707535.3.579. 2.593 1967 Unknown [id number] 2.16.840.1.089343.3.579. 2.593 1967 Unknown [id number] 2.16.840.1.079142.3.579. 2.1259 1967 Unknown [id number] 2.16.840.1.234736.3.579. 2.1259 1967 Unknown [id number] 2.16.840.1.799825.3.579. 2.1259 1967 Unknown [id number] 2.16.840.1.532609.3.579. 2.1259 1967 Unknown [id number] 2.16.840.1.935374.3.579. 2.1259 1967 Unknown [id number] 2.16.840.1.882758.3.579. 2.1259 1967 Unknown [id number] 2.16.840.1.118618.3.579. 2.1258 1967 Unknown [id number] 2.16.840.1.536511.3.579. 2.1258 1967 Unknown [id number] 2.16.840.1.092837.3.579. 2.1258 1967 Unknown [id number] 2.16.840.1.471301.3.579. 2.1258 1967 Unknown [id number] 2.16.840.1.992351.3.579. 2.1258 1967 Unknown [id number] 2.16.840.1.920356.3.579. 2.1258 1967 Unknown [id number] 2.16.840.1.315369.3.579. 2.1258 1967 Unknown [id number] 2.16840.1.976129.3.579. 2.1258 1967 Unknown [id number] 2.16840.1.884760.3.579. 2.1258 1967 Unknown [id number] 2.16840.1.115372.3.579. 2.1258 1967 Unknown [id number] 2.16.840.1.359897.3.579. 2.1258 1967 Unknown [id number] 2.16.840.1.688980.3.579. 2.1258 1967 Unknown [id number] 2.16.840.1.083332.3.579. 2.1258 1967 Unknown [id number] 2.16.840.1.534821.3.579. 2.1258 1967 Unknown [id number] 2.16.840.1.196434.3.579. 2.1258 1967 Unknown [id number] 2.16.840.1.384847.3.579. 2.1258 1967 Unknown [id number] 2.16.840.1.911922.3.579. 2.9 1967 Unknown [id number] 2.16.840.1.344621.3.579. 2.1258 1967 Unknown [id number] 2.16.840.1.203966.3.579. 2.1258 1967 Unknown [id number] 2.16.840.1.385090.3.579. 2.1258 1967 Unknown [id number] 2.16.840.1.366621.3.579. 2.1258 1967 Unknown [id number] 2.16.840.1.794214.3.579. 2.1258 1967 Unknown [id number] 2.16.840.1.734334.3.579. 2.1258 1967 Unknown [id number] 2.16.840.1.986198.3.579. 2.1258 1967 Unknown [id number] 2.16.840.1.522538.3.579. 2.1258 1967 Unknown [id number] 2.16.840.1.661850.3.579. 2.1258 1967 Unknown [id number] 2.16.840.1.033004.3.579. 2.1258 1967 Unknown [id number] 2.16.840.1.162794.3.579. 2.1258 1967 Unknown [id number] 2.16.840.1.172126.3.579. 2.1258 1967 Unknown [id number] 2.16.840.1.928948.3.579. 2.1259 1959 Unknown [id number] 2.16.840.1.116745.3.579. 2.531 Social History Date Type Detail Facility Start: 05-02-2020 End: 01-31-2023 Tobacco smoking status NHIS Ex-smoker [facility] End: 07-08-1997 History of tobacco use Cigarette Smoker [facility] Start: 05-02-2020 End: 01-31-2023 Tobacco use and exposure User of smokeless tobacco [facility] History of tobacco use Snuff User [facility] Start: 12-11-2021 End: 03-01-2025 Alcohol intake Ex-drinker (finding) [facility] Start: 05-02-2020 History SDOH Alcohol Frequency 5 [facility] Start: 05-02-2020 History SDOH Alcohol Std Drinks 2 [facility] Start: 05-02-2020 History SDOH Alcohol Binge 1 [facility] Start: 06-13-2020 History SDOH Alcohol Comment 3-4/day [facility] Start: 1965 Sex Assigned At Not on file [facility] Start: 12-01-2021 End: 12-11-2021 Exposure to SARS-CoV-2 (event) Not sure [facility] End: 07-08-1997 History of tobacco use Current smoker [facility] Start: 1965 Sex Assigned At Male [facility] Start: 01-31-2023 End: 03-01-2025 Cigarettes smoked current (pack per day) - Reported 1 [facility] Start: 05-02-2020 End: 01-31-2023 Alcohol Use Disorder Identification Test - Consumption [AUDIT-C] [facility] How often to you hav e a drink containing alcohol? 4 or more times a week [facility] How many standard dr inks containing alcohol do you have on a typical day? 3 or 4 [facility] How often do you hav e 6 or more drinks on 1 occasion? Never [facility] Start: 03-23-2020 National Score (1-100), lower number is lower risk 78 [facility] Start: 12-12-2022 Tobacco use and exposure Smokeless tobacco non-user [facility] Goals Date Patient Goal Desired Activity /State Personal health goal Functional Status Date Assessment Result Facility 03-01-2025 Total score [AUDIT-C] 0 03/01/20 12:41 PM Ashlee Esteban RN [facility] 06-19-2020 Are you deaf, or do you have serious difficulty hearing No 06/19/2020 12:28 PM Marilee Davis RN No [facility] 06-19-2020 Are you blind, or do you have serious difficulty seeing, even when wearing glasses No 06/19/2020 12:28 PM Marilee Davis RN No [facility] 06-19-2020 Do you have serious difficulty walking or climbing stairs No 06/19/2020 12:28 PM Marilee Davis RN No [facility] 06-19-2020 Do you have difficul ty dressing or bathing No 06/19/2020 12:28 PM Marilee Davis RN No [facility] 06-19-2020 Because of a physica l, mental, or emotional condition, do you have difficulty doing errands alone such as visiting a physician's office or shopping No 06/19/2020 12:28 PM Marilee Davis RN No [facility] Mental Status Date Assessment Result Facility 06-19-2020 Because of a physica l, mental, or emotional condition, do you have serious difficulty concentrating, remembering, or making decisions No 06/19/2020 12:28 PM Marilee Davis RN No [facility] Clinical Notes 12-11-2021 to 03-01-2025 Patient InstructionsDallin Harris MD - 03/01/2025 12:53 PM EDTBNoble dela cruz MD - 03/01/2025 12:15 PM EDTTelephone Encounter - Unique Connors - 02/03/2025 8:18 AM EDT Note Date & Type Note Facility 03-01-2025 Instructions Noble Harris MD - 03/01/2025 5:41 PM EDT We discussed your heart health and follow-up care: - You had a second ablation in May 2023, and since that time, you have not experienced any recurrence of symptoms such as chest pain, shortness of breath, or palpitations. - Your EKG today shows that you are in normal rhythm, and your heart function (EF) has improved. - Continue taking aspirin and Eliquis as prescribed. These medications are important for your heart health, and there is no need to make any changes at this time. - You mentioned having stents in the past but no history of stroke, high blood pressure, or diabetes. We discussed your follow-up care: - You are currently seeing Dr. Dallin Harris for cardiology care and have an appointment with him today at 12:45 PM. Please continue to follow up with him regularly. - You are welcome to return to our office as needed for any concerns or additional follow-up. Please let us know if you experience any new or worsening symptoms, such as chest pain, shortness of breath, or palpitations. documented in this encounter [facility] 03-01-2025 Note HNO ID: [id number] Author: DALLIN HARRIS MD Service: ? Author Type: Physician Type: Progress Notes Filed: 03/01/2025 13:58 Note Text: [facility] Department of Cardiovascular Medicine SECTION OF CLINICAL CARDIOLOGY OUTPATIENT VISIT DATE March 01, 2025 OUTPATIENT VISIT TYPE ESTABLISHED PRIMARY CARE PHYSICIAN: To use this Smartlink, specify the provider ID whose address you want to display, e.g., .PROVADDR[1 (where 1 is the provider ID). CHIEF COMPLAINT: Follow-up Feeling well HISTORY OF PRESENT ILLNESS: Mr. Gomez is a very pleasant 59-year-old man who was last seen in the cardiology clinic 02/13/2024. He has a history of established CAD with prior PCI of the LAD and circumflex 2017, paroxysmal atrial fibrillation, hypertension, hyperlipidemia. He underwent ablation of atrial fibrillation in May 2023. States that he has been feeling very well since the last visit. No recurrent symptomatic arrhythmia. He is compliant with anticoagulation. No history of TIA/CVA. Denies exertional angina or dyspnea. No orthopnea, PND or edema. PAST MEDICAL HISTORY Diagnosis Date Atrial flutter (HCC) CAD (coronary artery disease) CHF (congestive heart failure) (HCC) H/O arthroscopic knee surgery HTN (hypertension) PAST SURGICAL HISTORY Procedure Laterality Date ABLATION A-FIB BY PVI 06/04/2023 AFIB PVI W/COMPL EP STUDY 06/2020 and atrial flutter ELBOW SURGERY HX HEART CATHETERIZATION 03/20/2017 stent LAD and circumflex SHOULDER SURGERY HX 12/2023 SOCIAL HISTORY SOCIAL HISTORY[1] FAMILY HISTORY Problem Relation Age of Onset No Known Problems Mother Prostate Cancer Father Pancreatic Cancer Father No Known Problems Sister No Known Problems Brother ALLERGIES: ALLERGIES No Known Allergies MEDICATIONS: lisinopril (ZESTRIL) 5 mg tablet TAKE 1 TABLET BY MOUTH DAILY metoprolol succinate ER (TOPROL XL) 50 mg 24 hr tablet TAKE 1 TABLET BY MOUTH TWICE DAILY spironolactone (ALDACTONE) 25 mg tablet TAKE 1/2 TABLET BY MOUTH DAILY apixaban (ELIQUIS) 5 mg tab(s) Take 1 tablet by mouth two times a day. aspirin, enteric coated (ASPIRIN, ENTERIC COATED) 81 mg EC tablet Take 1 tablet by mouth once daily. atorvastatin (LIPITOR) 80 mg tablet Take 1 tablet by mouth once daily. PHYSICAL EXAMINATION: BP 120/70 (BP Site: Right Arm) Pulse 60 Wt 87.1 kg (192 lb) SpO2 99% BMI 28.77 kg/m? General: Well appearing, in no acute distress. Skin: No clubbing. No cyanosis. Neck: Supple, JVP normal Lungs: Clear to auscultation bilaterally. Heart: Regular rhythm. PMI 5th ICS LMCL, S1nl, S2nl. No murmur, added sounds or rub Extremities: No peripheral edema bilaterally. Neuro: Oriented x3, alert, cooperative, gait coordinated. CARDIOVASCULAR MEDICINE TESTING: Last ECHO Result Conclusion ECHO Collected: 11/04/2023 9:35 AM (Final result) Impression: CONCLUSIONS: - Exam indication: Paroxysmal atrial fibrillation S/P Ablation (05/2023) - The left ventricle is normal in size. Left ventricular systolic function is normal. EF = 58 ? 5% (2D biplane) Left ventricular diastolic function was not evaluated due to recent PVI. - The right ventricle is normal in size. Right ventricular systolic function is normal. - Estimated right ventricular systolic pressure is likely underestimated due to a weak or incomplete tricuspid regurgitation signal and is, at least, 27 mmHg consistent with normal pulmonary artery pressures. Estimated right atrial pressure is 8 mmHg based on IVC assessment. - There are no significant valvular abnormalities. - Exam was compared with the prior echocardiographic exam performed on 01/31/2023. PT now S/P Af Ablation. * * * Final * * * Last EKG Result Conclusion ECG COMPLETE Collected: 03/01/2025 11:30 AM (Preliminary result) Impression: NORMAL SINUS RHYTHM NORMAL ECG ECG reviewed Latest Ref Rng 02/13/2024 Protein, Total 6.3 - 8.0 g/dL 6.8 Albumin 3.9 - 4.9 g/dL 4.5 Calcium 8.5 - 10.2 mg/dL 9.7 Bilirubin, Total 0.2 - 1.3 mg/dL 0.4 Alkaline Phosphatase 38 - 113 U/L 80 AST 14 - 40 U/L 18 ALT 10 - 54 U/L 23 Glucose 74 - 99 mg/dL 97 BUN 9 - 24 mg/dL 17 Creatinine 0.73 - 1.22 mg/dL 0.97 Sodium 136 - 144 mmol/L 141 Potassium 3.7 - 5.1 mmol/L 4.5 Chloride 98 - 107 mmol/L 103 CO2 22 - 30 mmol/L 24 Anion Gap 8 - 15 mmol/L 14 eGFR >=60 mL/min/1.73m? 92 WBC 3.70 - 11.00 k/uL 8.25 RBC 4.20 - 6.00 m/uL 4.74 Hemoglobin 13.0 - 17.0 g/dL 14.1 Hematocrit 39.0 - 51.0 % 42.7 MCV 80.0 - 100.0 fL 90.1 MCH 26.0 - 34.0 pg 29.7 MCHC 30.5 - 36.0 g/dL 33.0 RDW-CV 11.5 - 15.0 % 12.2 Platelet Count 150 - 400 k/uL 300 MPV 9.0 - 12.7 fL 9.9 Absolute nRBC <0.01 k/uL <0.01 Cholesterol, Total <200 mg/dL 114 Triglyceride <150 mg/dL 82 HDL Cholesterol >39 mg/dL 42 Non HDL Cholesterol <130 mg/ (more content not included)... [facility] 03-01-2025 History of Present illness Narrative Images from the original note were not included. [facility] Department of Cardiovascular Medicine SECTION OF CLINICAL CARDIOLOGY OUTPATIENT VISIT DATE March 01, 2025 OUTPATIENT VISIT TYPE ESTABLISHED PRIMARY CARE PHYSICIAN: To use this Smartlink, specify the provider ID whose address you want to display, e.g., .PROVADDR[1 (where 1 is the provider ID). CHIEF COMPLAINT: Follow-up Feeling well HISTORY OF PRESENT ILLNESS: Mr. Gomez is a very pleasant 59-year-old man who was last seen in the cardiology clinic 02/13/2024. He has a history of established CAD with prior PCI of the LAD and circumflex 2017, paroxysmal atrial fibrillation, hypertension, hyperlipidemia. He underwent ablation of atrial fibrillation in May 2023. States that he has been feeling very well since the last visit. No recurrent symptomatic arrhythmia. He is compliant with anticoagulation. No history of TIA/CVA. Denies exertional angina or dyspnea. No orthopnea, PND or edema. PAST MEDICAL HISTORY Diagnosis Date Atrial flutter (HCC) CAD (coronary artery disease) CHF (congestive heart failure) (HCC) H/O arthroscopic knee surgery HTN (hypertension) PAST SURGICAL HISTORY Procedure Laterality Date ABLATION A-FIB BY PVI 06/04/2023 AFIB PVI W/COMPL EP STUDY 06/2020 and atrial flutter ELBOW SURGERY HX HEART CATHETERIZATION 03/20/2017 stent LAD and circumflex SHOULDER SURGERY HX 12/2023 SOCIAL HISTORY SOCIAL HISTORY[1] FAMILY HISTORY Problem Relation Age of Onset No Known Problems Mother Prostate Cancer Father Pancreatic Cancer Father No Known Problems Sister No Known Problems Brother ALLERGIES: ALLERGIES No Known Allergies MEDICATIONS: lisinopril (ZESTRIL) 5 mg tablet TAKE 1 TABLET BY MOUTH DAILY metoprolol succinate ER (TOPROL XL) 50 mg 24 hr tablet TAKE 1 TABLET BY MOUTH TWICE DAILY spironolactone (ALDACTONE) 25 mg tablet TAKE 1/2 TABLET BY MOUTH DAILY apixaban (ELIQUIS) 5 mg tab(s) Take 1 tablet by mouth two times a day. aspirin, enteric coated (ASPIRIN, ENTERIC COATED) 81 mg EC tablet Take 1 tablet by mouth once daily. atorvastatin (LIPITOR) 80 mg tablet Take 1 tablet by mouth once daily. PHYSICAL EXAMINATION: BP 120/70 (BP Site: Right Arm) Pulse 60 Wt 87.1 kg (192 lb) SpO2 99% BMI 28.77 kg/m General: Well appearing, in no acute distress. Skin: No clubbing. No cyanosis. Neck: Supple, JVP normal Lungs: Clear to auscultation bilaterally. Heart: Regular rhythm. PMI 5th ICS LMCL, S1nl, S2nl. No murmur, added sounds or rub Extremities: No peripheral edema bilaterally. Neuro: Oriented x3, alert, cooperative, gait coordinated. CARDIOVASCULAR MEDICINE TESTING: Last ECHO Result Conclusion ECHO Collected: 11/04/2023 9:35 AM (Final result) Impression: CONCLUSIONS: - Exam indication: Paroxysmal atrial fibrillation S/P Ablation (05/2023) - The left ventricle is normal in size. Left ventricular systolic function is normal. EF = 58 5% (2D biplane) Left ventricular diastolic function was not evaluated due to recent PVI. - The right ventricle is normal in size. Right ventricular systolic function is normal. - Estimated right ventricular systolic pressure is likely underestimated due to a weak or incomplete tricuspid regurgitation signal and is, at least, 27 mmHg consistent with normal pulmonary artery pressures. Estimated right atrial pressure is 8 mmHg based on IVC assessment. - There are no significant valvular abnormalities. - Exam was compared with the prior CC echocardiographic exam performed on 01/31/2023. PT now S/P Af Ablation. * * * Final * * * Last EKG Result Conclusion ECG COMPLETE Collected: 03/01/2025 11:30 AM (Preliminary result) Impression: NORMAL SINUS RHYTHM NORMAL ECG ECG reviewed Latest Ref Rng 02/13/2024 Protein, Total 6.3 - 8.0 g/dL 6.8 Albumin 3.9 - 4.9 g/dL 4.5 Calcium 8.5 - 10.2 mg/dL 9.7 Bilirubin, Total 0.2 - 1.3 mg/dL 0.4 Alkaline Phosphatase 38 - 113 U/L 80 AST 14 - 40 U/L 18 ALT 10 - 54 U/L 23 Glucose 74 - 99 mg/dL 97 BUN 9 - 24 mg/dL 17 Creatinine 0.73 - 1.22 mg/dL 0.97 Sodium 136 - 144 mmol/L 141 Potassium 3.7 - 5.1 mmol/L 4.5 Chloride 98 - 107 mmol/L 103 CO2 22 - 30 mmol/L 24 Anion Gap 8 - 15 mmol/L 14 eGFR >=60 mL/min/1.73m 92 WBC 3.70 - 11.00 k/uL 8.25 RBC 4.20 - 6.00 m/uL 4.74 Hemoglobin 13.0 - 17.0 g/dL 14.1 Hematocrit 39.0 - 51.0 % 42.7 MCV 80.0 - 100.0 fL 90.1 MCH 26.0 - 34.0 pg 29.7 MCHC 30.5 - 36.0 g/dL 33.0 RDW-CV 11.5 - 15.0 % 12.2 Platelet Count 150 - 400 k/uL 300 MPV 9.0 - 12.7 fL 9.9 Absolute nRBC <0.01 k/uL <0.01 Cholesterol, Total <200 mg/dL 114 Triglyceride <150 mg/dL 82 HDL Cholesterol >39 mg/dL 42 Non HDL Cholesterol <130 mg/dL 72 Fasting Time hrs 5 VLDL Cholesterol <30 mg/dL 16 TC:HDL Ratio <5.10 2.71 LDL Cholesterol, Calculated <100 mg/dL 56 LDL:HDL Ratio <2.54 1.33 IMPRESSION / RECOMMENDATIONS: 1. CAD status post PCI of the LAD and circumflex 2016. Reports no symptoms to suggest active ischemia. Normal LVEF by echocardiography October 2023. Normal resting twelve-lead ECG. - Continue current medical management 2. His lipids have been at goal values. Continue statin. 3. History of paroxysmal atrial fibrillation. He had a successful ablation in May 2023 without recurrence of arrhythmia. Currently in sinus rhythm. - Continue anticoagulation, follow-up with EP [seen by them earlier today] 4. Hypertension. His blood pressures are controlled. Continue current medical management Updated labs. Orders printed and given to him. He will get them done at his local hospital RTC 1 year CONTACT INFORMATION: Dallin Harris M.D. Penelope Gamez Department of Cardiovascular Medicine [facility] Desk [place] [address] Office - [phone] extension [phone] Office Appointments: [phone] extension [phone] [1] Social History Tobacco Use Smoking status: Former Current packs/day: 0.00 Types: Cigarettes Quit date: 1997 Years since quittin.6 Smokeless tobacco: Current Types: Snuff Vaping Use Vaping status: Never Used Substance Use Topics Alcohol use: Not Currently Comment: 3-4/day Drug use: Never documented in this encounter [facility] 03-01-2025 History of Present illness Narrative Images from the original note were not included. [facility] Department of Cardiovascular Medicine SECTION OF CARDIAC PACING and ELECTROPHYSIOLOGY OUTPATIENT VISIT DATE March 01, 2025 OUTPATIENT VISIT TYPE ESTABLISHED PRIMARY CARE PHYSICIAN: To use this Smartlink, specify the provider ID whose address you want to display, e.g., .PROVADDR[1 (where 1 is the provider ID). REFERRING PHYSICIAN: Noble Harris [id number] [facility] [id number] CHIEF COMPLAINT: Atrial Fibrillation HISTORY OF PRESENT ILLNESS: Mr. Gomez is a 59 year old male who presents today for follow-up visit for atrial fibrillatoin. He denies chest pain, shortness of breath, orthopnea, cough, edema, palpitations, PND, lightheadedness or syncope. NURSING INTAKE HISTORY: Mr. Gomez is a 59 year old male who presents today for follow-up visit s/p redo PVI 06/04/2023. He was last seen in office 11/04/2023. 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 He has previously tried Sotalol but stopped due to ineffectiveness. He had a redo 06/04/2023 and has had no recurrence. He denies chest pain, shortness of breath, orthopnea, cough, edema, palpitations, PND, lightheadedness or syncope. He checks himself with a kardia once a month to once a week and with symptoms. CHADS VASC: 3 (CAD, CHF, HTN) PAST MEDICAL HISTORY Diagnosis Date Atrial flutter (HCC) CAD (coronary artery disease) CHF (congestive heart failure) (HCC) H/O arthroscopic knee surgery HTN (hypertension) PAST SURGICAL HISTORY Procedure Laterality Date ABLATION A-FIB BY PVI 06/04/2023 AFIB PVI W/COMPL EP STUDY 06/2020 and atrial flutter ELBOW SURGERY HX HEART CATHETERIZATION 03/20/2017 stent LAD and circumflex SHOULDER SURGERY HX 12/2023 SOCIAL HISTORY SOCIAL HISTORY[1] FAMILY HISTORY Problem Relation Age of Onset No Known Problems Mother Prostate Cancer Father Pancreatic Cancer Father No Known Problems Sister No Known Problems Brother ALLERGIES: ALLERGIES No Known Allergies MEDICATIONS: lisinopril (ZESTRIL) 5 mg tablet TAKE 1 TABLET BY MOUTH DAILY metoprolol succinate ER (TOPROL XL) 50 mg 24 hr tablet TAKE 1 TABLET BY MOUTH TWICE DAILY spironolactone (ALDACTONE) 25 mg tablet TAKE 1/2 TABLET BY MOUTH DAILY apixaban (ELIQUIS) 5 mg tab(s) Take 1 tablet by mouth two times a day. aspirin, enteric coated (ASPIRIN, ENTERIC COATED) 81 mg EC tablet Take 1 tablet by mouth once daily. atorvastatin (LIPITOR) 80 mg tablet Take 1 tablet by mouth once daily. Lorrie Iverson RN BP 116/69 Pulse 67 Ht 174 cm (5' 8.5 ) Wt 87.1 kg (192 lb) BMI 28.77 kg/m CARDIOVASCULAR MEDICINE TESTING: Last ECHO Result Conclusion ECHO Collected: 11/04/2023 9:35 AM (Final result) Impression: CONCLUSIONS: - Exam indication: Paroxysmal atrial fibrillation S/P Ablation (05/2023) - The left ventricle is normal in size. Left ventricular systolic function is normal. EF = 58 5% (2D biplane) Left ventricular diastolic function was not evaluated due to recent PVI. - The right ventricle is normal in size. Right ventricular systolic function is normal. - Estimated right ventricular systolic pressure is likely underestimated due to a weak or incomplete tricuspid regurgitation signal and is, at least, 27 mmHg consistent with normal pulmonary artery pressures. Estimated right atrial pressure is 8 mmHg based on IVC assessment. - There are no significant valvular abnormalities. - Exam was compared with the prior echocardiographic exam performed on 01/31/2023. PT now S/P Af Ablation. * * * Final * * * Last EKG Result Conclusion ECG COMPLETE Collected: 03/01/2025 11:30 AM (Preliminary result) Impression: NORMAL SINUS RHYTHM NORMAL ECG EP STAFF ADDENDUM: I have reviewed the above information and examined the patient and confirm the above with the following additions/modifications. HISTORY OF PRESENT ILLNESS: The patient is a 59-year-old male with a history of atrial fibrillation, status post two ablations, and coronary artery stents, presenting for follow-up. The patient underwent a second ablation in May 2023 and reports no recurrence of atrial fibrillation since the procedure. He denies experiencing chest pain, dyspnea, or palpitations. He monitors his cardiac rhythm using a personal device once a week, once a month, and during symptomatic episodes. His LVEF has reportedly improved. He denies any history of hypertension, diabetes, or cerebrovascular accidents. He is currently taking aspirin and Eliquis. PHYSICAL EXAMINATION General: Alert & oriented, no acute distress Skin: Normal HEENT: Pupils equal, round. Oral cavity, oropharynx clear Neck: Supple, no mass Breast: Deferred Respiratory: Clear to auscultation, bilaterally Cardiovascular: Jugular venous pressure normal. Regular rate and rhythm, normal S1 and S2, no murmurs or added sounds Abdomen: Soft, non-tender, non-distended, no masses palpable, no hepatosplenomegaly, normal bowel sounds Genitourinary: Deferred MSK: No joint swelling, erythema, or tenderness Extremities: No clubbing, cyanosis, or edema INVESTIGATION: Labs Diagnostics not discussed in this category. Tests (Today) EKG: Normal rhythm. Imaging Diagnostics not discussed in this category. ASSESSMENT/PLAN 1. Primary hypertension (I10) No current complaints or symptoms related to hypertension. 2. Atypical atrial flutter (HCC) (I48.4) 3. Paroxysmal atrial fibrillation (HCC) (I48.0) 4. Status post ablation of atrial fibrillation (Z98.890) Second ablation performed in May 2023 with no recurrence of atrial fibrillation; EKG today shows normal rhythm. - Continue current management; no changes indicated at this time. 5. Coronary artery disease involving [place] coronary artery of [place] heart without angina pectoris (I25.10) 6. care home (current) use of anticoagulants (Z79.01) History of coronary artery stents; currently on aspirin and Eliquis. - Continue aspirin and Eliquis as prescribed. I personally interviewed, confirmed and edited the above information as obtained by others. CONTACT INFORMATION: oNble Harris MD Recording using Wortal software for draft documentation of the visit was discussed with the patient/authorized labor service representative; all questions welcomed and answered. Patient/authorized labor service representative agreed to proceed [1] Social History Tobacco Use Smoking status: Former Current packs/day: 0.00 Types: Cigarettes Quit date: 1997 Years since quittin.6 Smokeless tobacco: Current Types: Snuff Vaping Use Vaping status: Never Used Substance Use Topics Alcohol use: Not Currently Comment: 3-4/day Drug use: Never documented in this encounter [facility] 03-01-2025 Note HNO ID: [id number] Author: NOBLE HARRIS MD Service: ? Author Type: Physician Type: Progress Notes Filed: 03/01/2025 17:41 Note Text: [facility] Department of Cardiovascular Medicine SECTION OF CARDIAC PACING and ELECTROPHYSIOLOGY OUTPATIENT VISIT DATE March 01, 2025 OUTPATIENT VISIT TYPE ESTABLISHED PRIMARY CARE PHYSICIAN: To use this Smartlink, specify the provider ID whose address you want to display, e.g., .PROVADDR[1 (where 1 is the provider ID). REFERRING PHYSICIAN: Noble Harris [address] [facility] [id number] CHIEF COMPLAINT: Atrial Fibrillation HISTORY OF PRESENT ILLNESS: Mr. Gomez is a 59 year old male who presents today for follow-up visit for atrial fibrillatoin. He denies chest pain, shortness of breath, orthopnea, cough, edema, palpitations, PND, lightheadedness or syncope. NURSING INTAKE HISTORY: Mr. Gomez is a 59 year old male who presents today for follow-up visit s/p redo PVI 06/04/2023. He was last seen in office 11/04/2023. 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 He has previously tried Sotalol but stopped due to ineffectiveness. He had a redo 06/04/2023 and has had no recurrence. He denies chest pain, shortness of breath, orthopnea, cough, edema, palpitations, PND, lightheadedness or syncope. He checks himself with a kardia once a month to once a week and with symptoms. CHADS VASC: 3 (CAD, CHF, HTN) PAST MEDICAL HISTORY Diagnosis Date Atrial flutter (HCC) CAD (coronary artery disease) CHF (congestive heart failure) (HCC) H/O arthroscopic knee surgery HTN (hypertension) PAST SURGICAL HISTORY Procedure Laterality Date ABLATION A-FIB BY PVI 06/04/2023 AFIB PVI W/COMPL EP STUDY 06/2020 and atrial flutter ELBOW SURGERY HX HEART CATHETERIZATION 03/20/2017 stent LAD and circumflex SHOULDER SURGERY HX 12/2023 SOCIAL HISTORY SOCIAL HISTORY[1] FAMILY HISTORY Problem Relation Age of Onset No Known Problems Mother Prostate Cancer Father Pancreatic Cancer Father No Known Problems Sister No Known Problems Brother ALLERGIES: ALLERGIES No Known Allergies MEDICATIONS: lisinopril (ZESTRIL) 5 mg tablet TAKE 1 TABLET BY MOUTH DAILY metoprolol succinate ER (TOPROL XL) 50 mg 24 hr tablet TAKE 1 TABLET BY MOUTH TWICE DAILY spironolactone (ALDACTONE) 25 mg tablet TAKE 1/2 TABLET BY MOUTH DAILY apixaban (ELIQUIS) 5 mg tab(s) Take 1 tablet by mouth two times a day. aspirin, enteric coated (ASPIRIN, ENTERIC COATED) 81 mg EC tablet Take 1 tablet by mouth once daily. atorvastatin (LIPITOR) 80 mg tablet Take 1 tablet by mouth once daily. Lorrie Iverson RN BP 116/69 Pulse 67 Ht 174 cm (5' 8.5 ) Wt 87.1 kg (192 lb) BMI 28.77 kg/m? CARDIOVASCULAR MEDICINE TESTING: Last ECHO Result Conclusion ECHO Collected: 11/04/2023 9:35 AM (Final result) Impression: CONCLUSIONS: - Exam indication: Paroxysmal atrial fibrillation S/P Ablation (05/2023) - The left ventricle is normal in size. Left ventricular systolic function is normal. EF = 58 ? 5% (2D biplane) Left ventricular diastolic function was not evaluated due to recent PVI. - The right ventricle is normal in size. Right ventricular systolic function is normal. - Estimated right ventricular systolic pressure is likely underestimated due to a weak or incomplete tricuspid regurgitation signal and is, at least, 27 mmHg consistent with normal pulmonary artery pressures. Estimated right atrial pressure is 8 mmHg based on IVC assessment. - There are no significant valvular abnormalities. - Exam was compared with the prior CC echocardiographic exam performed on 01/31/2023. PT now S/P Af Ablation. * * * Final * * * Last EKG Result Conclusion ECG COMPLETE Collected: 03/01/2025 11:30 AM (Preliminary result) Impression: NORMAL SINUS RHYTHM NORMAL ECG EP STAFF ADDENDUM: I have reviewed the above information and examined the patient and confirm the above with the following additions/modifications. HISTORY OF PRESENT ILLNESS: The patient is a 59-year-old male with a history of atrial fibrillation, status post two ablations, and coronary artery stents, presenting for follow-up. The patient underwent a second ablation in May 2023 and reports no recurrence of atrial fibrillation since the procedure. He denies experiencing chest pain, dyspnea, or palpitations. He monitors his cardiac rhythm using a personal device once a week, once a month, and during symptomatic episodes. His LVEF has reportedly improved. He denies any history of hypertension, diabetes, or cerebrovascular accidents. He is currently taking aspirin and Eliqui (more content not included)... [facility] 02-03-2025 Telephone encounter Note Call from pharmacy requesting refill. Requested Prescriptions Pending Prescriptions Disp Refills lisinopril (ZESTRIL) 5 mg tablet [Pharmacy Med Name: LISINOPRIL 5MG TABLETS] 90 tablet 3 Sig: TAKE 1 TABLET BY MOUTH DAILY metoprolol succinate ER (TOPROL XL) 50 mg 24 hr tablet [Pharmacy Med Name: METOPROLOL ER SUCCINATE 50MG TABS] 180 tablet 3 Sig: TAKE 1 TABLET BY MOUTH TWICE DAILY spironolactone (ALDACTONE) 25 mg tablet [Pharmacy Med Name: SPIRONOLACTONE 25MG TABLETS] 45 tablet 3 Sig: TAKE 1/2 TABLET BY MOUTH DAILY Patient last seen 02/13/24 Upcoming appt 03/01/25 Unique Connors [facility] 02-03-2025 Miscellaneous Notes Call from pharmacy requesting refill. Requested Prescriptions Pending Prescriptions Disp Refills lisinopril (ZESTRIL) 5 mg tablet [Pharmacy Med Name: LISINOPRIL 5MG TABLETS] 90 tablet 3 Sig: TAKE 1 TABLET BY MOUTH DAILY metoprolol succinate ER (TOPROL XL) 50 mg 24 hr tablet [Pharmacy Med Name: METOPROLOL ER SUCCINATE 50MG TABS] 180 tablet 3 Sig: TAKE 1 TABLET BY MOUTH TWICE DAILY spironolactone (ALDACTONE) 25 mg tablet [Pharmacy Med Name: SPIRONOLACTONE 25MG TABLETS] 45 tablet 3 Sig: TAKE 1/2 TABLET BY MOUTH DAILY Patient last seen 02/13/24 Upcoming appt 03/01/25 Unique Connors documented in this encounter [facility] 04-06-2024 History of Present illness Narrative Images from the original note were not included. HISTORY OF PRESENT ILLNESS: EST PT Marilu Gomez is an 58 y.o. @ male. (EST PT; MOST RECENT VISIT WITH [facility]) S/P (R) SHOULDER SCOPE W/ RCR, SAC & BICEPS TENODESIS 12/19/23 (15WKS 4DAYS)- DOING WELL- NOTES SOME SORENESS IN THE AM OR AFTER SITTING FOR LONG PERIODS- SOME WEAKNESS- GOOD ROM- NO PAIN MEDS - SOME STIFFNESS - PT DID RETURN BACK TO WORK WITHOUT ISSUES PHYSICAL THERAPY (22 SESSIONS) @ [facility] ALLERGIES: No Known Allergies HOME MEDICATIONS: Current Outpatient Medications Medication Instructions apixaban (Eliquis) 5 MG tablet Every 12 hours aspirin 81 MG EC tablet Every 24 hours atorvastatin (Lipitor) 80 MG tablet Every 24 hours furosemide (Lasix) 20 MG tablet Every 24 hours lisinopril 5 MG tablet Every 24 hours metoprolol succinate XL (Toprol-XL) 25 MG 24 hr tablet Every 24 hours spironolactone (Aldactone) 25 MG tablet Every 24 hours PHYSICAL EXAM: Shoulder Musculoskeletal Exam Inspection Right Right shoulder inspection is normal. Ecchymosis: none Peripheral edema: none Atrophy: none Masses: none Prior incision: arthroscopic portals Incision: well-healed Palpation Right Right shoulder palpation is normal. Crepitus: no crepitus Increased warmth: none Tenderness: none Range of Motion Right Right shoulder range of motion is normal. Active ROM: normal and no pain. Passive ROM: normal and no pain. Strength Right External rotation: 5/5. Internal rotation: 5/5. Abduction: 5/5. Biceps: 5/5. Triceps: 5/5. Neurovascular Right Radial pulse: normal and 2+ Capillary refill: <3 sec Axillary nerve sensory distribution: normal Scapula Right Right shoulder scapula is normal. Position: normal Winging: none Special Tests Right Rotator Cuff Signs Neer's test: negative Ortiz test: negative Biceps/ben Signs Speed's test: negative AC Joint Signs Active horizontal adduction pain: negative Vitals: There is no height or weight on file to calculate BMI. Tobacco Use: Medium Risk (04/06/2024) Patient History Smoking Tobacco Use: Former Smokeless Tobacco Use: Never Passive Exposure: Not on file Alcohol Use: Alcohol Misuse (05/02/2020) Received from [facility], [facility] AUDIT-C Frequency of Alcohol Consumption: 4 or more times a week Average Number of Drinks: 3 or 4 Frequency of Binge Drinking: Never IMAGING: Procedures No orders of the defined types were placed in this encounter. ASSESSMENT: ICD-10-CM 1. Acute pain of right shoulder M25.511 2. History of arthroscopy of right shoulder Z98.890 PLAN: We have answered all the patients questions and explained the patients condition, decision making and plan including the risks and benefits associated with said plan in layman''s terms in a language the patient could understand easily. If patient''s symptoms significantly worsen and they cannot get a hold of us or their family physician, we have recommended that the patient proceed to the nearest emergency department (room). Dr. Madrid obtained history and examined the patient, I am acting as scribe for Dr. Madrid/valentina, PLAN: Patient is pleased with his right shoulder progress as he admits his right shoulder is better now than it was prior to sx. He has good strength / ROM of his right shoulder with examination today. Patient states that he completed formal PT and continues exercises at home. We have discussed his HEP and restrictions and will see him back on a prn basis. Cassandra Madrid D.O. documented in this encounter [facility] 03-05-2024 History of Present illness Narrative Images from the original note were not included. HISTORY OF PRESENT ILLNESS: POST OP PT Marilu Gomez is an 58 y.o. @ male. (EST PT) S/P (R) SHOULDER SCOPE W/ RCR, SAC & BICEPS TENODESIS 12/19/23 (11WKS) CONTINUES PHYSICAL THERAPY (22 SESSIONS) @ [facility] CONTINUES TO HAVE MILD, INTERMITTENT SORENESS WITH CERTAIN MOVEMENTS. CONTINUES THERAPY - NOTES INCREASED ROM ; HAS NOT STARTED STRENGTHENING YET. NO PAIN MEDS ; CONTINUES TO ICE. SCHEDULED TO RTW 03/09/24 - REQUESTING EXTENSION REVIEW OF SYSTEMS: General: Denies fever, fatigue or weight loss Lungs: Denies SOB Cardio: Denies chest pain GI: Denies indigestion or abdominal pain Neuro: Denies numbness or tingling, denies new onset paralysis Musculoskeletal: ( see note) PHYSICAL EXAM: Shoulder Musculoskeletal Exam Inspection Right Right shoulder inspection is normal. Ecchymosis: none Peripheral edema: none Atrophy: none Masses: none Prior incision: arthroscopic portals Incision: well-healed Palpation Right Right shoulder palpation is normal. Crepitus: no crepitus Increased warmth: none Tenderness: none Range of Motion Right Right shoulder range of motion is normal. Active ROM: normal and pain. Active ROM comment: passin 90 degrees then dissipates. Passive ROM: normal and no pain. Strength Right External rotation: 4+/5. Internal rotation: 4+/5. Abduction: 4/5. Biceps: 5/5. Triceps: 5/5. Neurovascular Right Radial pulse: normal and 2+ Capillary refill: <3 sec Axillary nerve sensory distribution: normal Scapula Right Right shoulder scapula is normal. Position: normal Winging: none Special Tests Right Rotator Cuff Signs Neer's test: negative Ortiz test: negative Biceps/ben Signs Speed's test: negative AC Joint Signs Active horizontal adduction pain: negative General Constitutional: appears stated age Labored breathing: no Neurological: alert and oriented x3 Procedures No orders of the defined types were placed in this encounter. ASSESSMENT: ICD-10-CM 1. S/P arthroscopy of right shoulder Z98.890 S/p SAD, BICEP tenodesis and rotator cuff repair. PLAN: F/U Dr. Madrid in 5 wks. Pt will return to work on 03/29 after few weeks of strengthening exercise to accommodate job duties... pt pleased with progress, has excellent rom AROM/ PROM.. gentle stress of cuff without pain, but expected weakness given post op course.. suspect impingment symptoms to improved with HEP. Questions answered in laymen terms at the bedside. The diagnosis, home exercise plan and any ongoing restrictions/ recommendations reviewed. If unable to be reached in office, I recommend evaluation at nearest Emergency Room if any symptoms worsened or new symptoms develop for requiring urgent evaluation. documented in this encounter [facility] 03-04-2024 History of Present illness Narrative Physical Therapy Treatment Visit Patient Name: Marilu Gomez Today's Date: 03/04/2024 Encounter Diagnoses Name Primary? Acute pain of right shoulder Yes S/P arthroscopy of right shoulder Shoulder stiffness, right Visit number: 22 Timed Code Treatment: 42 minutes Total Treatment Time: 60 minutes Time In: 7:50 AM Time Out: 8:40 AM History: Pt. Presents to PT PO right shoulder RCR, bicep tenodesis, SAD. DOS: 12/19/23. Denies N/T. Reports of couple years of shoulder pain leading to surgery. No injury. Works at [employer]. Pt. Presents to PT in shoulder sling and wears at all time. Precautions: PROM only until follow up in 4 weeks (01/13/24) Subjective: Pt reports his shoulder motion is better. Compliant with HEP. Objective: PT Evaluation Right shoulder PROM: flexion 90 degrees, abduction 65 deg, ER 20 deg, IR 20 deg Palpation: incision site healing well, mild + swelling, medial arm bruising (mild) Strength: 2/5, able to fire deltoid and rotator cuff muscles AROM: NOT tested Neuro screen: sensation intact to light touch UEFS: 17/80 Treatment: Manual Therapy: (15 minutes) Delivered manual ther pt supine: MFR to right shoulder and incision site, gentle PROM in flexion, abduction, ER to improve mobility and decrease pain Therapeutic Exercise: (27 minutes supervised) Guided pt through therex with progression of AAROM per protocol; exercises in grid. Additional unsupervised. Therapeutic Activity: Exercises to improve dynamic activities, functional tasks, functional mobility to return to prior activity level Neuromuscular Re-education: Balance Training, Muscle Facilitation, Dynamic Stability, Core Stabilization, and Blood Flow Restriction Training (BFRT) Modalities: (15 minutes) Post session pt sitting: IFC with ice to right shoulder to reduce muscle soreness. Assessment: Pt has completed 22 PT sessions post right right shoulder RCR, bicep tenodesis, SAD. DOS: 12/19/[address] Madrid. Pt with 155 degrees active flexion, 152 degrees active abduction. Pt continues to progress well toward PT goals. Pt. Demonstrates good effort with ther ex and compliant with HEP. Good progression of mobility this week. Return to March 06. Rehab Diagnosis: Right shoulder pain, decreased right shoulder ROM/flexibility/strength due to recent surgery Short Term Goal: To be met in 2 weeks Goal 1: Pt to be instructed in home exercise program. [employer] Goals: To be met in 16 weeks Goal 1: Pt to report independence and compliance with home program. Goal 2: Pt. Will demonstrate 170 degrees or greater right shoulder flexion and abduction ROM to help improve his functional mobility and return to work. Goal 3: Pt. Will demonstrate normal functional ER/IR ROM grossly in all planes to help improve his functional mobility and return to prior level of function. Goal 4: Pt. Will demonstrate 5/5 right shoulder strength grossly in all planes to allow him to lift/carry objects to help him return to work and PLOF. Goal 5: Pt. Will demonstrate normal right UE muscle flexibility to help him achieve full functional shoulder ROM to return to PLOF. Pt will benefit from skilled PT for 1-3x/week from 01/13/24 to 03/23/24 to address the above impairments. I hereby deem this POC medically necessary. Please sign below. Date: documented in this encounter [facility] 02-28-2024 History of Present illness Narrative Physical Therapy Treatment Visit Patient Name: Marilu Gomez Today's Date: 02/28/2024 Encounter Diagnoses Name Primary? Acute pain of right shoulder Yes S/P arthroscopy of right shoulder Shoulder stiffness, right Visit number: 20 Timed Code Treatment: 45 minutes Total Treatment Time: 60 minutes Time In: 7:00 AM Time Out: 8:04 AM History: Pt. Presents to PT PO right shoulder RCR, bicep tenodesis, SAD. DOS: 12/19/23. Denies N/T. Reports of couple years of shoulder pain leading to surgery. No injury. Works at [employer]. Pt. Presents to PT in shoulder sling and wears at all time. Precautions: PROM only until follow up in 4 weeks (01/13/24) Subjective: Pt states shoulder is a little sore this morning but pain only with certain movements. Still not sleeping well. Will see Dr again next Saturday. (03/06/24) Objective: PT Evaluation Right shoulder PROM: flexion 90 degrees, abduction 65 deg, ER 20 deg, IR 20 deg Palpation: incision site healing well, mild + swelling, medial arm bruising (mild) Strength: 2/5, able to fire deltoid and rotator cuff muscles AROM: NOT tested Neuro screen: sensation intact to light touch UEFS: 17/80 Treatment: Manual Therapy: (15 minutes) Delivered manual ther pt supine: MFR to right shoulder and incision site, gentle PROM in flexion, abduction, ER to improve mobility and decrease pain Therapeutic Exercise: (30 minutes supervised) Guided pt through therex with progression of AAROM per protocol; exercises in grid. Added AROM in standing this date. Therapeutic Activity: Exercises to improve dynamic activities, functional tasks, functional mobility to return to prior activity level Neuromuscular Re-education: Balance Training, Muscle Facilitation, Dynamic Stability, Core Stabilization, and Blood Flow Restriction Training (BFRT) Modalities: (15 minutes) Post session pt sitting: IFC with ice to right shoulder to reduce muscle soreness. Assessment: Pt has completed 20 PT sessions post right right shoulder RCR, bicep tenodesis, SAD. DOS: 12/19/[address] Madrid. Pt with 150 degrees active flexion, 132 degrees active abduction. Will continue to progress as pt tolerates. Good progression of mobility this week. Return to March 06. Rehab Diagnosis: Right shoulder pain, decreased right shoulder ROM/flexibility/strength due to recent surgery Short Term Goal: To be met in 2 weeks Goal 1: Pt to be instructed in home exercise program. [employer] Goals: To be met in 16 weeks Goal 1: Pt to report independence and compliance with home program. Goal 2: Pt. Will demonstrate 170 degrees or greater right shoulder flexion and abduction ROM to help improve his functional mobility and return to work. Goal 3: Pt. Will demonstrate normal functional ER/IR ROM grossly in all planes to help improve his functional mobility and return to prior level of function. Goal 4: Pt. Will demonstrate 5/5 right shoulder strength grossly in all planes to allow him to lift/carry objects to help him return to work and PLOF. Goal 5: Pt. Will demonstrate normal right UE muscle flexibility to help him achieve full functional shoulder ROM to return to PLOF. Pt will benefit from skilled PT for 1-3x/week from 01/13/24 to 03/23/24 to address the above impairments. I hereby deem this POC medically necessary. Please sign below. Date: documented in this encounter [facility] 02-13-2024 History of Present illness Narrative Images from the original note were not included. [facility] Department of Cardiovascular Medicine SECTION OF CLINICAL CARDIOLOGY OUTPATIENT VISIT DATE February 13, 2024 OUTPATIENT VISIT TYPE ESTABLISHED PRIMARY CARE PHYSICIAN: To use this Smartlink, specify the provider ID whose address you want to display, e.g., .[email or web address][1 (where 1 is the provider ID). CHIEF COMPLAINT: Follow up on Afib s/p ablation HISTORY OF PRESENT ILLNESS: Mr. Gomez is a 58 year old male who presents today for a cardiovascular medicine follow-up visit. 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 The patient was last seen in the clinic in 01/2023. At that time, he reported increase in the A-fib burden where he notices increased palpitation, lightheadedness, shortness of breath. He eventually had to do a repeat epilation with EP on 05/2023. He had a recent echo in October 2023, which showed an ejection fraction of 58 5% with no diastolic dysfunction. He also had a Holter monitor in 08/2023, which showed that the patient was in sinus rhythm. Today, the patient reports feeling great. He states that since the procedure he did not have any repeat of A-fib symptoms. He denies chest pain, shortness of breath, palpitation, lightheadedness, and syncope. He had a recent arthroscopic shoulder surgery in December 2023, which is limiting his exercise capacity. However, he reports that he walks around a mile daily without any significant symptoms, and he will continue to increase his exercise daily. He denies chest pain, shortness of breath, orthopnea, cough, edema, palpitations, PND, lightheadedness or syncope. PAST MEDICAL HISTORY No date: Atrial flutter (HCC) No date: CAD (coronary artery disease) No date: CHF (congestive heart failure) (HCC) No date: H/O arthroscopic knee surgery No date: HTN (hypertension) PAST SURGICAL HISTORY 06/2020: AFIB PVI W/COMPL EP STUDY Comment: and atrial flutter No date: ELBOW SURGERY HX 03/20/2017: HEART CATHETERIZATION Comment: stent LAD and circumflex No date: NRV DESTR RFA, CHEM OTHER Comment: 06/04/23- cardiac ablation No date: SHOULDER SURGERY HX Comment: 12/2023 SOCIAL HISTORY Social History Tobacco Use Smoking status: Former Packs/day: 1 Types: Cigarettes Quit date: 1997 Years since quittin.6 Smokeless tobacco: Current Types: Snuff Vaping Use Vaping Use: Never used Substance Use Topics Alcohol use: Not Currently Comment: 3-4/day Drug use: Never FAMILY HISTORY Problem Relation Age of Onset No Known Problems Mother Prostate Cancer Father No Known Problems Brother No Known Problems Sister ALLERGIES: ALLERGIES No Known Allergies MEDICATIONS: apixaban (ELIQUIS) 5 mg tab(s) Take 1 tablet by mouth two times a day. aspirin, enteric coated (ASPIRIN, ENTERIC COATED) 81 mg EC tablet Take 1 tablet by mouth once daily. atorvastatin (LIPITOR) 80 mg tablet Take 1 tablet by mouth once daily. lisinopril (ZESTRIL) 5 mg tablet Take 1 tablet by mouth once daily. metoprolol succinate ER (TOPROL XL) 50 mg 24 hr tablet Take 1 tablet by mouth two times a day. spironolactone (ALDACTONE) 25 mg tablet Take 0.5 tablets by mouth once daily. REVIEW OF SYSTEMS: GENERAL: Negative for: Weight loss or gain, Fever or Chills, Weakness and Sleep difficulties. HEENT: Negative for: Headache, Impaired Vision, Glasses, Hearing Impairment, Ringing in Ears, Nosebleeds, Poor dental care, Bleeding Gums, Dentures NECK: Negative for: Swelling, Pain, Stiffness RESPIRATORY: Negative for: Cough, Blood in Sputum, Shortness of breath, Wheezing, Apnea GASTROINTESTINAL: Negative for: Trouble swallowing, Heartburn, Change in bowel habits, Blood in stool, Dark black stools MUSCULOSKELETAL: Negative for: Muscle or joint pain, Stiffness , Joint swelling NEUROLOGIC/PSYCHIATRIC: Negative for: Weakness, Paralysis, Numbness, Tingling, Tremor, Nervousness, Depressed mood, Memory loss SKIN: Negative for: Rashes, Itching HEMATOLOGICAL/LYMPHATIC: Negative for: Easy bruising , Easy bleeding ENDOCRINE: Negative for: Heat or cold intolerance, Excessive sweating, Frequent urination, Frequent thirst PHYSICAL EXAMINATION: BP 128/62 (BP Site: Right Arm) Pulse 64 Ht 172.7 cm (5' 8 ) Wt 89.8 kg (198 lb) SpO2 100% BMI 30.11 kg/m General: Well appearing, in no acute distress. Skin: No clubbing, no cyanosis. Eyes: Extra ocular movements intact Oropharynx: Teeth in good repair. Neck: No jugular venous distention, no carotid bruits, carotids have a normal upstroke, no palpable thyromegaly. Lungs: Clear to auscultation bilaterally, no wheezing or rhonchi. Heart: Regular rhythm, PMI not displaced, S1, S2 normal, no S3, no S4, no heaves, no rub and no murmur. Abdomen: Soft, nontender, bowel sounds normal, no palpable organomegaly, no bruits. Extremities: No peripheral edema . Neuro: Oriented to person, place and time, alert, cooperative, gait coordinated. CARDIOVASCULAR MEDICINE TESTING: Last ECHO Result Conclusion ECHO Collected: 11/04/2023 9:35 AM (Final result) Impression: CONCLUSIONS: - Exam indication: Paroxysmal atrial fibrillation S/P Ablation (05/2023) - The left ventricle is normal in size. Left ventricular systolic function is normal. EF = 58 5% (2D biplane) Left ventricular diastolic function was not evaluated due to recent PVI. - The right ventricle is normal in size. Right ventricular systolic function is normal. - Estimated right ventricular systolic pressure is likely underestimated due to a weak or incomplete tricuspid regurgitation signal and is, at least, 27 mmHg consistent with normal pulmonary artery pressures. Estimated right atrial pressure is 8 mmHg based on IVC assessment. - There are no significant valvular abnormalities. - Exam was compared with the prior CC echocardiographic exam performed on 01/31/2023. PT now S/P Af Ablation. * * * Final * * * Last EKG Result Conclusion ECG COMPLETE Collected: 02/13/2024 1:24 PM (Preliminary result) Impression: NORMAL SINUS RHYTHM NORMAL ECG IMPRESSION: #Afib s/p ablation: Mr. Gomez is a 58 year old very pleasant male with a past medical history of CAD s/p PCI in 2016 (LAD and LCx), paroxysmal A-fib s/p ablation in 2019, with redo in 05/2023 on Eliquis (last seen by EP in October 2023), and a history of tachycardia induced cardiomyopathy ((presumed to be A-fib and alcohol; last EF is 58% on 10/2023, which has recovered from 20%) who is here for follow up. The patient is not having any symptoms today. He is feeling great and reports that he walks for around a mile daily without having any symptoms. His EKG was in normal sinus rhythm today. He is appropriately on Eliquis 5 mg BID and is on appropriate secondary prevention for his prior Hx of CAD (aspirin 81 mg daily, Lipitor 80 mg daily, lisinopril 5 mg daily, metoprolol 50 mg daily, spironolactone 25 mg daily). He does not record his BP at home but his BP was well controlled in the office today (128/62). His physical examination was also unremarkable. We will follow the patient in 1-year and will recommend a coordinated appointment between EP and general cardiology as he lives 1[place]5 hours away. PLAN AND RECOMMENDATIONS: - Continue current medical management. - Recommend a follow up in 1 year with repeat EKG (Coordinate appointment to be in the same day as EP visit). Mora Bhardwaj MD Internal Medicine Resident, PGY-1 02/13/2024 4:49 PM [facility] STAFF PHYSICIAN NOTE OF PERSONAL INVOLVEMENT IN CARE I have reviewed the history and physical examination obtained and documented by the resident and I personally participated in the white components. I have discussed the case and management of the patient's care. The following comments revise or confirm relevant white components of their note. Very pleasant 58-year-old man with a history of established CAD and prior PCI of the LAD and circumflex 2017, paroxysmal atrial fibrillation. He has been feeling very well since ablation of atrial fibrillation in May 2023. Echocardiography in October of this year demonstrated normal ventricular function. He is currently asymptomatic. Latest Ref Rng 02/13/2024 Protein, Total 6.3 - 8.0 g/dL 6.8 Albumin 3.9 - 4.9 g/dL 4.5 Calcium 8.5 - 10.2 mg/dL 9.7 Bilirubin, Total 0.2 - 1.3 mg/dL 0.4 Alkaline Phosphatase 38 - 113 U/L 80 AST 14 - 40 U/L 18 ALT 10 - 54 U/L 23 Glucose 74 - 99 mg/dL 97 BUN 9 - 24 mg/dL 17 Creatinine 0.73 - 1.22 mg/dL 0.97 Sodium 136 - 144 mmol/L 141 Potassium 3.7 - 5.1 mmol/L 4.5 Chloride 98 - 107 mmol/L 103 CO2 22 - 30 mmol/L 24 Anion Gap 8 - 15 mmol/L 14 eGFR >=60 mL/min/1.73m 92 WBC 3.70 - 11.00 k/uL 8.25 RBC 4.20 - 6.00 m/uL 4.74 Hemoglobin 13.0 - 17.0 g/dL 14.1 Hematocrit 39.0 - 51.0 % 42.7 MCV 80.0 - 100.0 fL 90.1 MCH 26.0 - 34.0 pg 29.7 MCHC 30.5 - 36.0 g/dL 33.0 RDW-CV 11.5 - 15.0 % 12.2 Platelet Count 150 - 400 k/uL 300 MPV 9.0 - 12.7 fL 9.9 Absolute nRBC <0.01 k/uL <0.01 Cholesterol, Total <200 mg/dL 114 Triglyceride <150 mg/dL 82 HDL Cholesterol >39 mg/dL 42 Non HDL Cholesterol <130 mg/dL 72 Fasting Time hrs 5 VLDL Cholesterol <30 mg/dL 16 TC:HDL Ratio <5.10 2.71 LDL Cholesterol <100 mg/dL 56 LDL:HDL Ratio <2.54 1.33 1. CAD. Reports no symptoms to suggest active ischemia. Normal LVEF by echocardiography October 2023. Normal resting twelve-lead ECG. - Continue current medical management 2. His lipids are at goal values. Continue statin. 3. History of paroxysmal atrial fibrillation. He had a successful ablation in May 2023 without recurrence of arrhythmia. Currently in sinus rhythm. - Continue anticoagulation, follow-up with Bertha Flower Department of Cardiovascular Medicine Heart [facility] Desk [place] [address] Office - [phone] extension [phone] Office Appointments: [phone] extension [phone] documented in this encounter [facility] 11-13-2023 Telephone encounter Note Form faxed. Christophe RN [facility] 11-13-2023 Miscellaneous Notes Form faxed. Christophe RN Patient has been identified by name and date of : Yes, Provider Dr. Harris Date 11/04/2023 Time 1125am Type of form: Hold Eliquis Form received via: Fax When form is completed, fax form to fax number provided. [phone] Form has been forwarded to: Nurse (printed) Karina Oquendo documented in this encounter [facility] 11-04-2023 History of Present illness Narrative Images from the original note were not included. [facility] Department of Cardiovascular Medicine SECTION OF CARDIAC PACING and ELECTROPHYSIOLOGY OUTPATIENT VISIT DATE November 04, 2023 OUTPATIENT VISIT TYPE ESTABLISHED PRIMARY CARE PHYSICIAN: To use this Smartlink, specify the provider ID whose address you want to display, e.g., .[email or web address][1 (where 1 is the provider ID). REFERRING PHYSICIAN: Dallin Harris [id number] [facility] [id number] CHIEF COMPLAINT: Atrial Fibrillation HISTORY OF PRESENT ILLNESS: Mr. Gomez is a 58 year old male who presents today for follow-up visit s/p redo PVI 06/04/23. NURSING INTAKE HISTORY: Mr. Gomez is a 58 year old male who presents today for follow-up visit s/p redo PVI 06/04/23. He was last seen in office 03/04/23. 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 He has previously tried Sotalol but stopped due to ineffectiveness. He denies lightheadedness, syncope, nearsyncope, palpitations, chest pain, shortness of breath, orthopnea, PND, or edema. Tolerating medications without any adverse effects. PAST MEDICAL HISTORY Diagnosis Date Atrial flutter (HCC) CAD (coronary artery disease) CHF (congestive heart failure) (HCC) H/O arthroscopic knee surgery HTN (hypertension) PAST SURGICAL HISTORY Procedure Laterality Date AFIB PVI W/COMPL EP STUDY 06/2020 and atrial flutter ELBOW SURGERY HX HEART CATHETERIZATION 03/20/2017 stent LAD and circumflex SOCIAL HISTORY Social History Tobacco Use Smoking status: Former Packs/day: 1 Types: Cigarettes Quit date: 1997 Years since quittin.3 Smokeless tobacco: Current Types: Snuff Vaping Use Vaping Use: Never used Substance Use Topics Alcohol use: Not Currently Comment: 3-4/day Drug use: Never FAMILY HISTORY Problem Relation Age of Onset No Known Problems Mother Prostate Cancer Father No Known Problems Brother No Known Problems Sister ALLERGIES: ALLERGIES No Known Allergies MEDICATIONS: spironolactone (ALDACTONE) 25 mg tablet^Take 0.5 tablets by mouth once daily.^Disp: 45 tablet^Rfl: 3 metoprolol succinate ER (TOPROL XL) 50 mg 24 hr tablet^Take 1 tablet by mouth twice daily.^Disp: 180 tablet^Rfl: 3 lisinopril (ZESTRIL) 5 mg tablet^Take 1 tablet by mouth once daily.^Disp: 90 tablet^Rfl: 3 apixaban (ELIQUIS) 5 mg tab(s)^Take 1 tablet by mouth twice daily.^Disp: 180 tablet^Rfl: 3 atorvastatin (LIPITOR) 80 mg tablet^Take 1 tablet by mouth once daily.^Disp: 90 tablet^Rfl: 3 aspirin, enteric coated (ASPIRIN, ENTERIC COATED) 81 mg EC tablet^Take 81 mg by mouth once daily.^Disp: ^Rfl: Augusta Rubio RN PHYSICAL EXAMINATION: BP 130/82 Pulse 72 Ht 175.3 cm (5' 9 ) Wt 84.8 kg (187 lb) BMI 27.62 kg/m CARDIOVASCULAR MEDICINE TESTING: EKG: Today Echo: Today CONCLUSIONS: - Exam indication: Paroxysmal atrial fibrillation S/P Ablation (05/2023) - The left ventricle is normal in size. Left ventricular systolic function is normal. EF = 58 5% (2D biplane) Left ventricular diastolic function was not evaluated due to recent PVI. - The right ventricle is normal in size. Right ventricular systolic function is normal. - Estimated right ventricular systolic pressure is likely underestimated due to a weak or incomplete tricuspid regurgitation signal and is, at least, 27 mmHg consistent with normal pulmonary artery pressures. Estimated right atrial pressure is 8 mmHg based on IVC assessment. - There are no significant valvular abnormalities. - Exam was compared with the prior echocardiographic exam performed on 01/31/2023. PT now S/P Af Ablation. Record recurrences on or prior to the follow-up date but after the date of the previous follow-up (or after ablation date if this is the first follow-up) Palpitations: No AFib: No Aflutter: No AT or SVT: No Is patient currently in atrial fibrillation? No Arrhythmia recurrence beyond the blanking period: No One year success off AAD Not applicable EP STAFF ADDENDUM: I have reviewed the above information and examined the patient and confirm the above with the following additions/modifications. HISTORY OF PRESENT ILLNESS: Mr. Gomez is a 58-year-old male who is seen me in the past for atrial fibrillation. He first had an ablation in 2019 and then had recurrence for which he had a redo ablation in May 2023. Since that time he has not had any atrial fibrillation and currently denies any symptoms of chest pain, shortness of breath, palpitations, lightheadedness, dizziness, presyncope or syncope PHYSICAL EXAMINATION: GENERAL: Patient is alert, co-operative and oriented. No signs of acute distress. SKIN: Exam is unremarkable, no rashes/dermatitis HEENT: Unremarkable, Oral mucosa normal NECK: Neck supple, JVP not raised, No palpable thyromegaly. Carotids palpable bilaterally, No bruit. CHEST: Normal appearing. Lungs clear to auscultation. No crepitations or wheeze. HEART: Regular rate and rhythm. S1 normal S2 normal split. No S3/S4. No murmur. No rub. ABDOMEN: Soft, no obvious swelling/mass. No palpable organomegaly. Bowel sounds normal. PERIPHERAL VASCULAR/EXTREMITIES: Peripheral pulses palpable, No varicose veins or venous insufficiency. No pedal edema. MUSCULOSKELETAL: Normal extremities without any weakness or limitation of range of motion. NEUROLOGIC: No focal neurological deficits. No meningeal signs. MENTAL STATUS: Normal. EKG shows sinus rhythm Echo shows normal valves and LV function; images and results reviewed with the patient. IMPRESSION: Mr. Gomez is a 58-year-old male who is doing well after his catheter ablation in May without any recurrence of atrial arrhythmias. He will continue to follow-up on a yearly basis or as needed Noble Harris MD November 04, 2023 2:50 PM This note was generated using [employer] voice recognition system. Please excuse any typographical errors. documented in this encounter [facility] 11-04-2023 Telephone encounter Note Patient has been identified by name and date of : Yes, Provider Dr. Harris Date 11/04/2023 Time 1125am Type of form: Hold Eliquis Form received via: Fax When form is completed, fax form to fax number provided. [phone] Form has been forwarded to: Nurse (printed) Karina Oquendo [facility] 11-04-2023 Nurse Note 1. How often on average, does your irregular heart rhythm (atrial fibrillation) occur? Not applicable, I have not had an irregular heart rhythm since my ablation 2. How long on average, do the episodes of the irregular heart rhythm last? Not applicable, I have not had an irregular heart rhythm since my ablation 3. How often have you been bothered by this symptom in the past 4 weeks? Palpitations: none, Shortness of breath at rest: none, Shortness of breath during physical activity: none, Exercise intolerance (fatigue during mild physical activity): none, Fatigue at rest: none, Lightheadedness/dizziness: none, and Chest pain or pressure: none 4. Have you had an inpatient hospital admission within 30 days of your procedure? No Augusta Rubio RN [facility] 11-04-2023 Nurse Note 1. How often on average, does your irregular heart rhythm (atrial fibrillation) occur? Not applicable, I have not had an irregular heart rhythm since my ablation 2. How long on average, do the episodes of the irregular heart rhythm last? Not applicable, I have not had an irregular heart rhythm since my ablation 3. How often have you been bothered by this symptom in the past 4 weeks? Palpitations: none, Shortness of breath at rest: none, Shortness of breath during physical activity: none, Exercise intolerance (fatigue during mild physical activity): none, Fatigue at rest: none, Lightheadedness/dizziness: none, and Chest pain or pressure: none 4. Have you had an inpatient hospital admission within 30 days of your procedure? No Augusta Rubio, JOSE MIGUEL documented in this encounter [facility] 06-05-2023 History of Present illness Narrative TRANSMITTER INSTRUCTIONS [facility] [id number] Fresh battery inserted in monitor Patient instructed 1.) Scheduled and Symptomatic recording instructions 2.) Usage of event button and/or transmission instructions 3.) Maintenance and care of monitor 4.) Prefer land line or select mobile phones 5.) Return unit at the end of prescribed order 6.) Call with problems [phone] OR [phone] Patient expresses good verbal understanding of instructions Rocio Klein documented in this encounter [facility] 06-03-2023 History of Present illness Narrative THE FOLLOWING WAS EVALUATED Motivation To Learn: Interested Family/Significant Other Support: High - Very involved in pt care Cognitive Ability: Alert and oriented Patient Learns Best By: Verbal Instruction The Following Influencing Factors Were Barriers To This Education Session: None The Following Physical Limitations Were Barriers To This Education Session: None Instruction Provided To: Spouse Procedure: Pulmonary Vein Ablation/Isolation Pre-procedure information reviewed: Patient ID verified Procedure verified Physician verified Explanation of procedure Sedation level during procedure MD medication instructions from EP lab request: Hold all meds the morning of the procedure. Patient's denies the patient missing any doses of Eliquis in the past 3 weeks. Travel instructions/restrictions Scheduling information Possible same day discharge versus overnight hospital stay Check out time Family waiting area Physician contact with family after procedure Post Procedure Expectations reviewed: Inpatient hospital stay Post procedure antiarrhythmics and anticoagulation will be discussed with Physician, nurse practitioner or Physician graduate assistant upon discharge Instructions for transmitting EKG to Monitoring Center 3 month follow up instructions Contact number for information and questions Patient Evaluation: Verbalizes understanding Follow Up Plan: Follow up as directed by MD. Supplemental Material Given: Written Material Patient education regarding radiation exposure. Instructed By Helga Whatley RN. In Department of CARDIOLOGY. documented in this encounter [facility] 03-21-[address] Kimberly Martin: I am sending the request for an ablation. I would like him to have a pharm stress done. Please ask if he is ok with the same. Attempted to contact the patient. Left voice message. Christophe GILLESPIE Message sent to Dr. Harris. Christophe RN documented in this encounter [facility] 03-21-2023 Miscellaneous Notes EP STAFF ADDENDUM: Patient wishes to proceed with redo ablation Will schedule. Noble Harris MD March 21, 2023 10:37 AM documented in this encounter [facility] 03-04-2023 History of Present illness Narrative Images from the original note were not included. [facility] Department of Cardiovascular Medicine SECTION OF CARDIAC PACING and ELECTROPHYSIOLOGY OUTPATIENT VISIT DATE March 04, 2023 OUTPATIENT VISIT TYPE ESTABLISHED REFERRING PHYSICIAN: SELF CHIEF COMPLAINT: atrial fibrillation HISTORY OF PRESENT ILLNESS: Mr. Gomez is a 57 year old male who presents today for follow-up visit for atrial fibrillation. NURSING INTAKE HISTORY: Mr. Gomez is a 57 year old male who presents today for follow-up visit for atrial fibrillation. 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 His LVEF has normalized to 62% (01/2023). He has previously tried Sotalol. He was last seen in June 2021 at which time he was doing well without any recurrence. He has since developed breakthrough episode of atrial fibrillation now occurring once to twice a month lasting hours to several days in duration. He presents today in AFib at a rate of 100bpm ongoing for the past several days. Denies need for DCC since his ablation. He reports palpitations and intermittent lightheadedness during his episodes. He remains on Eliquis and Toprol. CHADS2-Vasc Score Breakdown 3 Total Score 1 History of CHF 1 History of hypertension 1 History of vascular disease PAST MEDICAL HISTORY Diagnosis Date Atrial flutter (HCC) CAD (coronary artery disease) CHF (congestive heart failure) (HCC) H/O arthroscopic knee surgery HTN (hypertension) PAST SURGICAL HISTORY Procedure Laterality Date AFIB PVI W/COMPL EP STUDY 06/2020 and atrial flutter ELBOW SURGERY HX HEART CATHETERIZATION 03/20/2017 stent LAD and circumflex SOCIAL HISTORY Social History Tobacco Use Smoking status: Former Packs/day: 1 Types: Cigarettes Quit date: 1997 Years since quittin.6 Smokeless tobacco: Current Types: Snuff Vaping Use Vaping Use: Never used Substance Use Topics Alcohol use: Not Currently Comment: 3-4/day Drug use: Never FAMILY HISTORY Problem Relation Age of Onset No Known Problems Mother Prostate Cancer Father No Known Problems Brother No Known Problems Sister ALLERGIES: ALLERGIES No Known Allergies MEDICATIONS: spironolactone (ALDACTONE) 25 mg tablet Take 0.5 tablets by mouth once daily. metoprolol succinate ER (TOPROL XL) 50 mg 24 hr tablet Take 1 tablet by mouth twice daily. lisinopril (ZESTRIL) 5 mg tablet Take 1 tablet by mouth once daily. apixaban (ELIQUIS) 5 mg tab(s) Take 1 tablet by mouth twice daily. atorvastatin (LIPITOR) 80 mg tablet Take 1 tablet by mouth once daily. aspirin, enteric coated (ASPIRIN, ENTERIC COATED) 81 mg EC tablet Take 81 mg by mouth once daily. Asia Rose RN PHYSICAL EXAMINATION: BP 96/58 Pulse 100 Ht 172.7 cm (5' 8 ) Wt 84.8 kg (187 lb) BMI 28.43 kg/m CARDIOVASCULAR MEDICINE TESTING: EKG today: Echo: 01/31/2023 CONCLUSIONS: - Exam indication: Nonsustained atrial fibrillation - The left ventricle is normal in size. There is no left ventricular hypertrophy. Left ventricular systolic function is normal. EF = 62 5% (2D biplane) Left ventricular diastolic function was not evaluated due to AF. - The right ventricle is normal in size. Right ventricular systolic function is normal. - Estimated right ventricular systolic pressure is not reported due to an insufficient tricuspid regurgitation signal. Estimated right atrial pressure is 8 mmHg based on IVC assessment. - Exam was compared with the prior CC echocardiographic exam performed on 10/10/2020: similar findings. EP STAFF ADDENDUM: I have reviewed the above information and examined the patient and confirm the above with the following additions/modifications. HISTORY OF PRESENT ILLNESS: Mr. Gomez is a 57-year-old male with known history of coronary artery disease, atrial fibrillation with history of tachycardia induced cardiomyopathy and is here for a follow-up visit for his atrial fibrillation. He has previously had tachycardia induced cardiomyopathy and an ejection fraction of 20% which had normalized after a catheter ablation which she had an June 2020. After his ablation he did well for about a year and a half and then has been having increasing paroxysms of atrial fibrillation and is currently having 1-2 episodes a month lasting for 8 to 24 hours but has spontaneous conversion. He is symptomatic with palpitations, lightheadedness and effort intolerance but denies any history of presyncope or syncope and his most recent echo shows normal ejection fraction PHYSICAL EXAMINATION: GENERAL: Patient is alert, co-operative and oriented. No signs of acute distress. SKIN: Exam is unremarkable, no rashes/dermatitis HEENT: Unremarkable, Oral mucosa normal NECK: Neck supple, JVP not raised, No palpable thyromegaly. Carotids palpable bilaterally, No bruit. CHEST: Normal appearing. Lungs clear to auscultation. No crepitations or wheeze. HEART: Regular rate and rhythm. S1 normal S2 normal split. No S3/S4. No murmur. No rub. ABDOMEN: Soft, no obvious swelling/mass. No palpable organomegaly. Bowel sounds normal. PERIPHERAL VASCULAR/EXTREMITIES: Peripheral pulses palpable, No varicose veins or venous insufficiency. No pedal edema. MUSCULOSKELETAL: Normal extremities without any weakness or limitation of range of motion. NEUROLOGIC: No focal neurological deficits. No meningeal signs. MENTAL STATUS: Normal. EKG shows atrial fibrillation with occasional aberrancy with a right bundle branch block pattern with a heart rate of 100 bpm IMPRESSION: 57-year-old male with 1. Coronary artery disease: On appropriate medical therapy and follows up with Dr. Dallin Harris 2. Atrial fibrillation: Previous history of tachycardia induced cardiomyopathy and had been on sotalol but then underwent a catheter ablation in 2019. Did well for about a year and a half and now has increasing paroxysms. We discussed the risks and benefits of options of management namely sotalol and redo ablation and convergent plus. I suggested that an ablation may be reasonable given his young age, significant symptoms, reasonable burden and risk for tachycardia induced cardiomyopathy. He wishes to think and get back to us 3. Hypertension, vascular disease and heart failure: He will follow-up with primary care physician and cardiology PLAN: 1. Continue current meds 2. Patient will think about his options and get back to us once he has made up his mind Noble Harris MD March 04, 2023 12:10 PM This note was generated using [employer] voice recognition system. Please excuse any typographical errors. documented in this encounter [facility] 01-31-2023 History of Present illness Narrative Images from the original note were not included. [facility] Department of Cardiovascular Medicine SECTION OF CLINICAL CARDIOLOGY OUTPATIENT VISIT DATE January 31, 2023 OUTPATIENT VISIT TYPE ESTABLISHED PRIMARY CARE PHYSICIAN: To use this Smartlink, specify the provider ID whose address you want to display, e.g., .[email or web address][1 (where 1 is the provider ID). CHIEF COMPLAINT: Follow-up HISTORY OF PRESENT ILLNESS: Mr. Gomez is a very pleasant 57-year-old man was last seen in the cardiology clinic 12/11/2021. He has a history of established CAD and paroxysmal atrial fibrillation/flutter status post ablation. He also has a history of LV dysfunction now with recovered systolic function [believed to be due to atrial fibrillation +/- prior alcohol use]. Last evaluated by EP in 2020. Reports that initially his atrial fibrillation was very well controlled after ablation. He feels that he has been experiencing increasingly frequent episodes this year. Reports that he gets atrial fibrillation about 2 times a month. Each episode lasts for a few hours to up to a day. Symptoms during these episodes include occasional palpitations, a feeling of lightheadedness on bending over and general fatigue. During these episodes, his states that he gets grouchy. In March last year, he had severe cramps followed by altered sensorium. Recovered very quickly. He was evaluated by EMS, stayed home. His ECG showed atrial fibrillation. He feels that his atrial fibrillation burden has doubled this year. He is completely asymptomatic between episodes. Walks up to 10,000 steps daily. Has upcoming right shoulder surgery which has not yet been scheduled. Denies angina or dyspnea. No orthopnea, PND or edema. No symptoms to suggest TIA/CVA. Compliant with anticoagulation. PAST MEDICAL HISTORY Diagnosis Date Atrial flutter (HCC) CAD (coronary artery disease) CHF (congestive heart failure) ([facility]) H/O arthroscopic knee surgery HTN (hypertension) PAST SURGICAL HISTORY Procedure Laterality Date AFIB PVI W/COMPL EP STUDY 06/2020 and atrial flutter ELBOW SURGERY HX HEART CATHETERIZATION 03/20/2017 stent LAD and circumflex SOCIAL HISTORY Social History Tobacco Use Smoking status: Former Packs/day: 1.00 Types: Cigarettes Quit date: 1997 Years since quittin.5 Smokeless tobacco: Current Types: Snuff Vaping Use Vaping Use: Never used Substance Use Topics Alcohol use: Not Currently Comment: 3-4/day Drug use: Never FAMILY HISTORY Problem Relation Age of Onset No Known Problems Mother Prostate Cancer Father No Known Problems Brother No Known Problems Sister ALLERGIES: ALLERGIES No Known Allergies MEDICATIONS: spironolactone (ALDACTONE) 25 mg tablet^TAKE 1/2 TABLET BY MOUTH EVERY DAY^Disp: 45 tablet^Rfl: 0 metoprolol succinate ER (TOPROL XL) 50 mg 24 hr tablet^TAKE 1 TABLET BY MOUTH TWICE DAILY^Disp: 180 tablet^Rfl: 0 lisinopril (ZESTRIL, PRINIVIL) 5 mg tablet^Take 1 tablet by mouth once daily.^Disp: 90 tablet^Rfl: 1 ELIQUIS 5 mg tab(s)^TAKE 1 TABLET BY MOUTH TWICE DAILY^Disp: 180 tablet^Rfl: 3 atorvastatin (LIPITOR) 80 mg tablet^TAKE 1 TABLET BY MOUTH EVERY DAY^Disp: 30 tablet^Rfl: 5 aspirin, enteric coated (ASPIRIN, ENTERIC COATED) 81 mg EC tablet^Take 81 mg by mouth once daily.^Disp: ^Rfl: PHYSICAL EXAMINATION: BP 110/73 (BP Site: Left Arm, BP Position: Sitting) Pulse 74 Ht 170.2 cm (5' 7 ) Wt 84.8 kg (187 lb) SpO2 100% BMI 29.29 kg/m General: Well appearing, in no acute distress. Skin: No clubbing. No cyanosis. Neck: Supple, JVP normal Lungs: Clear to auscultation bilaterally. Heart: Regular rhythm. PMI 5th ICS LMCL, S1nl, S2nl. No murmur, added sounds or rub Extremities: No peripheral edema bilaterally. Neuro: Oriented x3, alert, cooperative, gait coordinated. CARDIOVASCULAR MEDICINE TESTING: Last ECHO Result Conclusion ECHO Collected: 01/31/2023 11:48 AM (Final result) Impression: CONCLUSIONS: - Exam indication: Nonsustained atrial fibrillation - The left ventricle is normal in size. There is no left ventricular hypertrophy. Left ventricular systolic function is normal. EF = 62 5% (2D biplane) Left ventricular diastolic function was not evaluated due to AF. - The right ventricle is normal in size. Right ventricular systolic function is normal. - Estimated right ventricular systolic pressure is not reported due to an insufficient tricuspid regurgitation signal. Estimated right atrial pressure is 8 mmHg based on IVC assessment. - Exam was compared with the prior CC echocardiographic exam performed on 10/10/2020: similar findings. * * * Final * * * ECG -atrial fibrillation, left axis deviation, nonspecific ST abnormality ECG reviewed Component Latest Ref Rng & Units 01/31/2023 Protein, Total 6.3 - 8.0 g/dL 6.8 Albumin 3.9 - 4.9 g/dL 4.1 Calcium 8.5 - 10.2 mg/dL 9.8 Bilirubin, Total 0.2 - 1.3 mg/dL 0.6 Alkaline Phosphatase 38 - 113 U/L 66 AST 14 - 40 U/L 26 ALT 10 - 54 U/L 30 Glucose 74 - 99 mg/dL 103 (H) BUN 9 - 24 mg/dL 15 Creatinine 0.73 - 1.22 mg/dL 0.97 Sodium 136 - 144 mmol/L 141 Potassium 3.7 - 5.1 mmol/L 4.1 Chloride 97 - 105 mmol/L 104 CO2 22 - 30 mmol/L 23 Anion Gap 9 - 18 mmol/L 14 eGFR >=60 mL/min/1.73m 92 WBC 3.70 - 11.00 k/uL 11.06 (H) RBC 4.20 - 6.00 m/uL 5.21 Hemoglobin 13.0 - 17.0 g/dL 15.4 Hematocrit 39.0 - 51.0 % 46.7 MCV 80.0 - 100.0 fL 89.6 MCH 26.0 - 34.0 pg 29.6 MCHC 30.5 - 36.0 g/dL 33.0 RDW-CV 11.5 - 15.0 % 12.1 Platelet Count 150 - 400 k/uL 319 MPV 9.0 - 12.7 fL 10.1 Absolute nRBC <0.01 k/uL <0.01 Cholesterol, Total <200 mg/dL 105 Triglyceride <150 mg/dL 98 HDL Cholesterol >39 mg/dL 38 (L) Non HDL Cholesterol <130 mg/dL 67 Fasting Time hrs 12 VLDL Cholesterol <30 mg/dL 20 TC:HDL Ratio <5.10 2.76 LDL Cholesterol <100 mg/dL 47 LDL:HDL Ratio <2.54 1.24 IMPRESSION / RECOMMENDATIONS: 1. CAD status post PCI/stenting to the LAD and circumflex in 2017. Normal LVEF by echocardiography. No symptoms to suggest active ischemia, decompensated heart failure. -Continue current medications for secondary prevention 2. His blood pressures are controlled 3. Lipids -LDL at goal values. Continue high intensity statin. 4. Paroxysmal atrial fibrillation/flutter -status post ablation 2019. Reports an increasing burden of atrial fibrillation this year as noted above. Asymptomatic between episodes. He was in atrial fibrillation earlier today [documented on his ECG], had converted to sinus rhythm during the office visit. Continue follow-up with EP. Continue anticoagulation 5. History of HFrEF. LV dysfunction believed to be due to atrial fibrillation +/- alcohol intake. He has quit alcohol completely. His LV systolic function has recovered. 6. Upcoming shoulder surgery. He is stable from a cardiac perspective for the purposes of the operation. Normal LVEF by echocardiography. Maintains a good functional capacity [>4-6 METS] with no limiting symptoms. His overall perioperative cardiovascular risk for this particular operation should be acceptable. At this point, no further cardiac testing suggested preoperatively. - He should continue perioperative aspirin without interruption [history of stents], statin, beta-mary jo - He may discontinue Eliquis 2 days [4 doses] prior to the operation, restart postoperatively once deemed to be surgically safe. CONTACT INFORMATION: Dallin Harris M.D. [facility] Department of Cardiovascular Medicine [facility] Desk [id number] [place] [address] Office - [phone] extension [phone] Office Appointments: [phone] extension [phone] documented in this encounter [facility] 09-03-2022 Miscellaneous Notes Call from pharmacy requesting refill. Requested Prescriptions Pending Prescriptions Disp Refills lisinopril (ZESTRIL, PRINIVIL) 5 mg tablet [Pharmacy Med Name: LISINOPRIL 5MG TABLETS] 90 tablet 1 Sig: Take 1 tablet by mouth once daily. Patient last seen 12/11/21 Unique Connors documented in this encounter [facility] 06-22-2022 Miscellaneous Notes Call from pharmacy requesting refill. Requested Prescriptions Pending Prescriptions Disp Refills ELIQUIS 5 mg tab(s) [Pharmacy Med Name: ELIQUIS 5MG TABLETS] 60 tablet 5 Sig: TAKE 1 TABLET BY MOUTH TWICE DAILY Patient last seen 12/11/2021 Odilia Fall documented in this encounter [facility] 06-04-2022 Miscellaneous Notes Call from pharmacy requesting refill. Requested Prescriptions Pending Prescriptions Disp Refills atorvastatin (LIPITOR) 80 mg tablet [Pharmacy Med Name: ATORVASTATIN 80MG TABLETS] 30 tablet 5 Sig: TAKE 1 TABLET BY MOUTH EVERY DAY Patient last seen 12/11/2021 Odilia Fall documented in this encounter [facility] 12-11-2021 History of Present illness Narrative Images from the original note were not included. [facility] Department of Cardiovascular Medicine SECTION OF CLINICAL CARDIOLOGY OUTPATIENT VISIT DATE December 11, 2021 OUTPATIENT VISIT TYPE CONSULTATION REFERRING PHYSICIAN Noble Harris [phone] [facility] [place] [address] CHIEF COMPLAINT: Establish care HISTORY OF PRESENT ILLNESS: Cardiac consultation at the request of Dr. Noble Harris.A copy of this consultation note will be provided to the requesting physician by way of shared Medical record. Mr. Gomez is a very pleasant 56-year-old man who was seen in the cardiology clinic on 12/11/2021 for assessment of CAD and to establish cardiology care. He has a history of established CAD and paroxysmal atrial fibrillation/flutter. States that he was detected to have atrial fibrillation/flutter when he presented to his physicians for evaluation of parotid gland swelling. During evaluation, he underwent stress testing which was abnormal which led to coronary angiography and subsequent PCI/stenting of the LAD and circumflex. It is unclear if he had symptoms of true angina prior to the procedure. He continues to have episodes of atrial fibrillation and flutter. Echocardiography in 2019 demonstrated moderate to severe LV systolic dysfunction [thought to be due to atrial fibrillation as well as due to the possible consequences of alcohol consumption]. He was seen at [facility] and subsequently underwent ablation of his atrial fibrillation as well as flutter. He feels that this procedure was successful. Since then, has had very infrequent breakthroughs which she has been reporting on a [employer] josefina [2 episodes this year]. He feels well. Denies angina or dyspnea. No orthopnea, PND or edema. No symptoms to suggest recent TIA/CVA. His blood pressures are controlled. He is tolerating his current medical therapy well and is compliant with the same. 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 Generally reaches >more than 8000-10,000 steps per day. NURSING INTAKE: Marilu Gomez is a 56 year old male from [place], [place] here today for cardiovascular evaluation. He has a significant medical history of CAD s/p stent to LAD circumflex 2016, and symptomatic atrial fibrillation and flutter with tachycardia induced9 cardiomyopathy s/p PVI and typical atrial flutter ablation on 06/16/2020. He reports the following symptoms: patient denies cardiac symptoms. 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 He follows a low fat, low sodium diet. He participates in walking for exercise/activity at least every day. Their primary concern for today's visit: Establish care at [facility] for his CAD. PAST MEDICAL HISTORY Diagnosis Date Atrial flutter (HCC) CAD (coronary artery disease) CHF (congestive heart failure) (HCC) H/O arthroscopic knee surgery HTN (hypertension) PAST SURGICAL HISTORY Procedure Laterality Date AFIB PVI W/COMPL EP STUDY 06/2020 and atrial flutter ELBOW SURGERY HX HEART CATHETERIZATION 03/20/2017 stent LAD and circumflex SOCIAL HISTORY Social History Tobacco Use Smoking status: Former Smoker Types: Cigarettes Smokeless tobacco: Current User Types: Snuff Vaping Use Vaping Use: Never used Substance Use Topics Alcohol use: Not Currently Comment: 3-4/day Drug use: Never FAMILY HISTORY Problem Relation Age of Onset No Known Problems Mother Prostate Cancer Father No Known Problems Brother No Known Problems Sister ALLERGIES: ALLERGIES No Known Allergies MEDICATIONS: metoprolol succinate ER (TOPROL XL) 50 mg 24 hr tablet Take 1 tablet by mouth twice daily. aspirin, enteric coated (ASPIRIN, ENTERIC COATED) 81 mg EC tablet Take 81 mg by mouth once daily. spironolactone (ALDACTONE) 25 mg tablet Take 0.5 tablets by mouth once daily. atorvastatin (LIPITOR) 80 mg tablet Take 80 mg by mouth once daily. apixaban (ELIQUIS) 5 mg tab(s) Take 5 mg by mouth twice daily. lisinopril (ZESTRIL, PRINIVIL) 5 mg tablet Take 5 mg by mouth once daily. REVIEW OF SYSTEMS: GENERAL: Negative for: Weight loss or gain, Fever or Chills, Weakness and Sleep difficulties. HEENT: Negative for: Headache, Impaired Vision, Glasses, Hearing Impairment, Ringing in Ears, Nosebleeds, Poor dental care, Bleeding Gums, Dentures NECK: Negative for: Swelling, Pain, Stiffness RESPIRATORY: Negative for: Cough, Blood in Sputum, Shortness of breath, Wheezing, Apnea GASTROINTESTINAL: Negative for: Trouble swallowing, Heartburn, Change in bowel habits, Blood in stool, Dark black stools MUSCULOSKELETAL: Negative for: Muscle or joint pain, Stiffness , Joint swelling NEUROLOGIC/PSYCHIATRIC: Negative for: Weakness, Paralysis, Numbness, Tingling, Tremor, Nervousness, Depressed mood, Memory loss SKIN: Negative for: Rashes, Itching HEMATOLOGICAL/LYMPHATIC: Negative for: Easy bruising , Easy bleeding ENDOCRINE: Negative for: Heat or cold intolerance, Excessive sweating, Frequent urination, Frequent thirst PHYSICAL EXAMINATION: BP 115/71 (BP Site: Right Arm) Pulse 77 Resp 12 Ht 172.7 cm (5' 8 ) Wt 82.6 kg (182 lb) SpO2 99% BMI 27.67 kg/m General: Well appearing, in no acute distress. Skin: No clubbing. No cyanosis. Eyes: EOMI Neck: Supple, JVP normal Lungs: Clear to auscultation bilaterally. Heart: Regular rhythm. PMI 5th ICS LMCL, S1nl, S2nl. No murmur, added sounds or rub Extremities: No peripheral edema bilaterally. Neuro: Oriented x3, alert, cooperative, gait coordinated. CARDIOVASCULAR MEDICINE TESTING: Last EKG Result Conclusion ECG COMPLETE Collected: 12/11/2021 10:48 AM (Preliminary result) Impression: NORMAL SINUS RHYTHM NORMAL ECG Complete Results ECG reviewed ECHO 10/10/2020 CONCLUSIONS: - Technically difficult exam due to body habitus. - Exam indication: Nonsustained atrial fibrillation - The left ventricle is normal in size. Left ventricular systolic function is normal. EF = 56 5% (2D biplane) Indeterminate left ventricular diastolic dysfunction. - The right ventricle is normal in size. Right ventricular systolic function is low normal. - Estimated right ventricular systolic pressure is 24 mmHg consistent with normal pulmonary artery pressures. Estimated right atrial pressure is 3 mmHg based on IVC assessment. - Exam was compared with the prior echocardiographic exam performed on 06/19/2020. LV EF looks normal today. CT PULMONARY VEIN W IVCON 10/10/2020 IMPRESSION: 1. Normal pulmonary venous anatomy without pulmonary vein stenosis. 2. No left atrial or left atrial appendage thrombus. IMPRESSION / RECOMMENDATIONS: 1. CAD status post PCI/stenting to the LAD and circumflex in 2016. Normal LVEF by echocardiography 10/26. No symptoms to suggest active ischemia, decompensated heart failure. -Continue current medications for secondary prevention 2. His blood pressures are controlled 3. Lipids -goal LDL <70. Continue high intensity statin. He will forward the results of recent lab testing to us for our records 4. Paroxysmal atrial fibrillation/flutter -status post ablation 2019. He has been in sinus rhythm predominantly since the procedure with infrequent breakthroughs. Continue follow-up with EP. Continue anticoagulation 5. History of HFrEF. LV dysfunction believed to be due to atrial fibrillation +/- alcohol intake. He has quit alcohol completely. His LV systolic function has recovered. Will reassess periodically Prescription was refilled. Future refills dependent on receiving and evaluating appropriate lab work from his local physicians RTC 1 year CONTACT INFORMATION: Bertha Stone Department of Cardiovascular Medicine Heart and V[facility] [place] Desk [place] [address] Office [phone] extension [phone] Office Appointments: [phone] [facility] [place] [address] documented in this encounter [facility] Evaluation note Diagnosis Paroxysmal atrial fibrillation (HCC)- Primary Atrial fibrillation Coronary artery disease involving [place] coronary artery of [place] heart without angina pectoris Essential hypertension Unspecified essential hypertension Mixed hyperlipidemia [facility] Diagnosis Onset Date Resolution Status Acute bronchitis, viral acut e Atrial fibrillation with rapid ventricular response acute [facility] Work Phone: Evaluation note* Diagnosis SOB (shortness of breath)- Primary Shortness of breath [facility] Diagnosis Coronary artery disease involving [place] coronary artery of [place] heart without angina pectoris- Primary Mixed hyperlipidemia Paroxysmal atrial fibrillation (HCC) Atrial fibrillation [facility] Diagnosis Chronic a-fib (HCC)- Primary Atrial fibrillation [facility] Diagnosis Primary hypertension- Primary Unspecified essential hypertension Coronary artery disease involving [place] coronary artery of [place] heart without angina pectoris Typical atrial flutter (HCC) Atrial flutter Paroxysmal atrial fibrillation (HCC) Atrial fibrillation Acute on chronic systolic congestive heart failure (HCC) Acute on chronic systolic heart failure Persistent atrial fibrillation (HCC) Atrial fibrillation Chronic anticoagulation Long-term (current) use of anticoagulants Obesity, Class I, BMI 30-34.9 Obesity, unspecified [facility] Diagnosis Coronary artery disease involving [place] coronary artery of [place] heart without angina pectoris- Primary Acute on chronic systolic congestive heart failure (HCC) Acute on chronic systolic heart failure [facility] Diagnosis Paroxysmal atrial fibrillation (HCC)- Primary Atrial fibrillation [facility] Diagnosis Paroxysmal atrial fibrillation (HCC)- Primary Atrial fibrillation [facility] Diagnosis Coronary artery disease, unspecified vessel or lesion type, unspecified whether angina present, unspecified whether [place] or transplanted heart- Primary Atrial fibrillation, chronic (HCC) Atrial fibrillation [facility] Diagnosis Mixed hyperlipidemia- Primary [facility] Diagnosis Paroxysmal atrial fibrillation (HCC)- Primary Atrial fibrillation [facility] Diagnosis Primary hypertension- Primary Unspecified essential hypertension Paroxysmal atrial fibrillation (HCC) Atrial fibrillation Persistent atrial fibrillation (HCC) Atrial fibrillation Coronary artery disease involving [place] coronary artery of [place] heart without angina pectoris Typical atrial flutter (HCC) Atrial flutter Acute on chronic systolic congestive heart failure (HCC) Acute on chronic systolic heart failure Chronic anticoagulation Long-term (current) use of anticoagulants [facility] Diagnosis Encounter for follow-up- Primary Paroxysmal atrial fibrillation (HCC) Atrial fibrillation Coronary artery disease involving [place] coronary artery of [place] heart without angina pectoris [facility] Diagnosis Acute pain of right shoulder- Primary History of arthroscopy of right shoulder documented in this encounter [facility]* Diagnosis Acute pain of right shoulder- Primary S/P arthroscopy of right shoulder documented in this encounter [facility]* Diagnosis Acute pain of right shoulder- Primary S/P arthroscopy of right shoulder Shoulder stiffness, right [facility] Acute pain of right shoulder- Primary S/P arthroscopy of right shoulder Shoulder stiffness, right [facility] Diagnosis S/P arthroscopy of right shoulder- Primary documented in this encounter [facility]* Diagnosis Acute pain of right shoulder- Primary S/P arthroscopy of right shoulder Shoulder stiffness, right documented in this encounter [facility]* Diagnosis Acute pain of right shoulder- Primary S/P arthroscopy of right shoulder Shoulder stiffness, right documented in this encounter [facility]* Diagnosis Acute pain of right shoulder- Primary S/P arthroscopy of right shoulder Shoulder stiffness, right documented in this encounter [facility]* Diagnosis Acute pain of right shoulder- Primary S/P arthroscopy of right shoulder Shoulder stiffness, right documented in this encounter [facility]* Diagnosis Abnormal EKG- Primary Nonspecific abnormal electrocardiogram (ECG) (EKG) [facility] Diagnosis Coronary artery disease involving [place] coronary artery of [place] heart without angina pectoris- Primary Paroxysmal atrial fibrillation (HCC) Atrial fibrillation Primary hypertension Unspecified essential hypertension Mixed hyperlipidemia [facility] Diagnosis Primary hypertension- Primary Unspecified essential hypertension Atypical atrial flutter (HCC) Atrial flutter Paroxysmal atrial fibrillation (HCC) Atrial fibrillation Coronary artery disease involving [place] coronary artery of [place] heart without angina pectoris Status post ablation of atrial fibrillation Other postprocedural status care home (current) use of anticoagulants Long-term (current) use of anticoagulants documented in this encounter [facility] for referral (narrative)* Outpatient Procedure (Routine) - Pending Review Specialty Diagnoses / Procedures Referred By Demiac vikash Referred To Contact [facility] Diagnoses SOB (shortness of breath) Procedures ECHO ECHO TTHRC R-T 2D W/WOM-MODE COMPL SPEC&COLR D Dallin Harris MD [address] [place] [address] [address] Referral ID Status Reason Start Date Expiration Date Visits Requested Visits Authorized [id number] Pending Review Auto-Generat ed Referral 10/12/2022 10/12/2023 1 1 * Outpatient Procedure (Routine) - Authorized Specialty Diagnoses / Procedures Referred By [facility] suh Referred To Contact [facility] Diagnoses SOB (shortness of breath) Procedures ECG COMPLETE ECG ROUTINE ECG W/LEAST 12 LDS W/I&R Dallin Harris MD [address] [place] [address] [address] Referral ID Status Reason Start Date Expiration Date Visits Requested Visits Authorized [id number] Authorized Auto-Generat ed Referral 10/12/2022 10/12/[address] [facility] for referral (narrative)* Outpatient Procedure (Routine) - Authorized Specialty Diagnoses / Procedures Referred By [facility] Health[facility]icia Referred To Contact [facility] Diagnoses Chronic a-fib (HCC) Procedures ECG COMPLETE ECG ROUTINE ECG W/LEAST 12 LDS W/I&R Noble Harris MD [address] [place] [address] [facility] [address] [place] [address] Referral ID Status Reason Start Date Expiration Date Visits Requested Visits Authorized [id number] Authorized Auto-Generat ed Referral 02/04/2023 02/04/[address] [facility] for referral (narrative)* Diagnostic Procedure Only (Routine) - Pending Review Specialty Diagnoses / Procedures Referred By Contac t Referred To Contact [facility] Diagnoses Coronary artery disease involving [place] coronary artery of [place] heart without angina pectoris Procedures NM CARDIAC PERF STRESS/PHARM MYOCARDIAL SPECT MULTIPLE STUDIES Noble Harris MD [address] [place] [address] [facility] [address] [place] [address] Referral ID Status Reason Start Date Expiration Date Visits Requested Visits Authorized [id number] Pending Review Auto-Generat ed Referral 03/21/2023 04/19/[address] [facility] for referral (narrative)* Outpatient Procedure (Routine) - Pending Review Specialty Diagnoses / Procedures Referred By Demiac t Referred To Contact [facility] Diagnoses Paroxysmal atrial fibrillation (HCC) Procedures ECG COMPLETE ECG ROUTINE ECG W/LEAST 12 LDS W/I&R Noble Harris MD [address] [place] [address] [address] Referral ID Status Reason Start Date Expiration Date Visits Requested Visits Authorized [id number] Pending Review Auto-Generat ed Referral 03/28/2023 03/27/[address] [facility] for referral (narrative)* Outpatient Procedure (Routine) - Authorized Specialty Diagnoses / Procedures Referred By Contac t Referred To Contact [facility] Diagnoses Coronary artery disease, unspecified vessel or lesion type, unspecified whether angina present, unspecified whether [place] or transplanted heart Atrial fibrillation, chronic (HCC) Procedures ECG COMPLETE ECG ROUTINE ECG W/LEAST 12 LDS W/I&R Dallin Harris MD [address] [place] [address] [place] [address] Referral ID Status Reason Start Date Expiration Date Visits Requested Visits Authorized [id number] Authorized Auto-Generat ed Referral 10/23/2023 10/22/[address] [facility] for referral (narrative)* Outpatient Procedure (Routine) - Closed Specialty Diagnoses / Procedures Referred By Contac t Referred To Contact [facility] Diagnoses Paroxysmal atrial fibrillation (HCC) Procedures ECHO ECHO TTHRC R-T 2D W/WOM-MODE COMPL SPEC&COLR D Noble Harris MD [address] [place] [address] [address] Referral ID Status Reason Start Date Expiration Date V isits Requested Visits Authorized [id number] Closed Auto-Generate d Referral 11/04/2023 11/03/[address] [facility] for referral (narrative)* Outpatient Procedure (Routine) - Pending Review Specialty Diagnoses / Procedures Referred By Contac t Referred To Contact [facility] Diagnoses Primary hypertension Paroxysmal atrial fibrillation (HCC) Procedures ECG COMPLETE ECG ROUTINE ECG W/LEAST 12 LDS W/I&R Noble Harris MD [address] [place] [address] [address] Referral ID Status Reason Start Date Expiration Date Visits Requested Visits Authorized [id number] Pending Review Auto-Generat ed Referral 11/04/2023 11/03/2024 1 1 * Transition of Care (Routine) - Ref Not Required Specialty Diagnoses / Procedures Referred By Contac t Referred To Contact Procedures CARDIOVASCULAR MEDICINE OP FOLLOW UP APPT ORDER Noble Harris MD [address] [place] [address] Referral ID Status Reason Start Date Expiration Date Visits Requested Visits Authorized [id number] Ref Not Required PCP Requested Referral 11/03/2024 02/01/[address] [facility] for referral (narrative)* Outpatient Procedure (Routine) - New Request Specialty Diagnoses / Procedures Referred By Contac t Referred To Contact [facility] [place] Diagnoses Encounter for follow-up Paroxysmal atrial fibrillation (HCC) Procedures ECG COMPLETE ECG ROUTINE ECG W/LEAST 12 LDS W/I&R Dallin Harris [facility] [address] [facility] [facility] [place] [address] [facility] [address] [address] Referral ID Status Reason Start Date Expiration Date Visits Requested Visits Authorized [id number] New Request Auto-Generat ed Referral 02/13/2024 02/12/2025 1 1 * Transition of Care (Routine) - Ref Not Required Specialty Diagnoses / Procedures Referred By Contac t Referred To Contact [facility] [place] Procedures CARDIOVASCULAR MEDICINE OP FOLLOW UP APPT ORDER Dallin Harris MD [address] [place] [address] [facility] [address] [address] Referral ID Status Reason Start Date Expiration Date Visits Requested Visits Authorized [id number] Ref Not Required PCP Requested Referral 11/14/2024 02/12/[address] [facility] for referral (narrative)* Transition of Care (Routine) - Authorized Specialty Diagnoses / Procedures Referred By Keaton t Referred To Contact [facility] Noble Harris MD [address] [place] [address] Phone: tel: fax: [place] [phone] Referral ID Status Reason Start Date Expiration Date Visits Requested Visits Authorized [id number] Authorized PCP Requested Referral 03/01/2025 03/01/[address] [facility] for visit Narrative* Consultation (Routine) - Authorized Specialty Diagnoses / Procedures Referred By Keaton t Referred To Contact Physical Therapy Diagnoses S/P arthroscopy of right shoulder Procedures ID OFFICE/OUTPATIENT NEW HIGH MDM 60 MINUTES Chari Boyle PA [address] [facility] [address] [place] [address] [facility] [address] [facility] [address] [place] [address] Referral ID Status Reason Start Date Expiration Date Visits Requested Visits Authorized [id number] Authorized Consult and Treat 01/03/2024 07/01/2024 40 40 [facility] for visit Narrative* Transition of Care (Routine) - Closed Specialty Diagnoses / Procedures Referred By Keaton t Referred To Contact [facility] Diagnoses Encounter for follow-up examination after completed treatment for conditions other than malignant neoplasm Dallin Harris MD [address] [place] [address] Phone: tel: fax: [address] [address] Referral ID Status Reason Start Date Expiration Date V isits Requested Visits Authorized [id number] Closed PCP Requested Referral 11/14/2024 02/12/[address] [facility] for visit Narrative* Consult, Test, Treat (Routine) - Authorized Specialty Diagnoses / Procedures Referred By Contac t Referred To Contact Cardiology / CARDIOVASCULAR MEDICINE Diagnoses Paroxysmal atrial fibrillation (HCC) Encounter for follow-up Procedures EST HVTI PATIENT Noble Harris MD [address] [place] [address] Phone: tel: fax: Noble Harris MD [address] [place] [address] Phone: tel:[phone] fax:[phone] Referral ID Status Reason Start Date Expiration Date V isits Requested Visits Authorized [id number] Authorized 03/01/2025 07/07/2025 99 99 [facility] Summary Purpose Family History No Family History Records Found Relationship Condition Age at Onset Recorded Date/T osvaldo Not Specified No pertinent family history Unknown Advance Directives No Advanced Directives Records FoundDocuments on File Type Date Recorded Patient Case Fitter Expl anation Advance Directive(s) 06/03/2020 4:09 PM Advance Directive Response Recorded Date/ Time Advance Directives No August 07, 2021 10:57pm Hospital Course Note MR#: [id number] [facility] Pt. Name: Marilu Gomez Admitted: 02/28/2020 Discharged: 03/02/2020 Date of : 1965 Physician: Delia Antonio M.D. DISCHARGE SUMMARY PRIMARY DIAGNOSES: 1. Chronic atrial fibrillation with RVR. 2. Acute systolic congestive heart failure exacerbation. 3. Hypomagnesemia. SECONDARY DIAGNOSIS: 1. Coronary artery disease, status post stent placement in 2017. HISTORY OF PRESENT ILLNESS AND HOSPITAL COURSE: The patient is a 54-year-old male, who was transferred from another hospital for atrial flutter with rapid ventricular response. He has been tired and fatigued for the last 2-3 weeks. The patient was also complaining of shortness of breath. In the Emergency Department at other facility, he had also complained of some shortness of breath. The patient was given a dose of Lasix and his shortness of breath improved. The patient was in atrial flutter with a heart rate varying in the 160s. The patient was placed on the Cardizem drip (more content not included)... Chief Complaint and Reason for Visit Chief Complaint Cough Reason for Visit Acute bronchitis, vi ral Atrial fibrillation with rapid ventricular response Additional Source Comments (unrecognized sect ion and content) No Status Records FoundNo Status Records FoundNo Status Records FoundNo Status Records FoundNo Status Records FoundNo Status Records Found INFORMATION SOURCE (unrecogn ized section and content) DATE CREATED AUTHOR 03/19/2020 [facility] DATE CREATED AUTHOR AUTHOR'S ORGANIZ ATION 05/13/2020 [facility] DATE CREATED AUTHOR AUTHOR'S ORGANIZ ATION 05/01/2022 [facility] DATE CREATED AUTHOR AUTHOR'S ORGANIZ ATION 08/31/2022 [facility] DATE CREATED AUTHOR AUTHOR'S ORGANIZ ATION 04/06/2024 [facility] EPIC DATE CREATED AUTHOR AUTHOR'S ORGANIZ ATION 03/02/2025 [facility] Source Comments (unrecognize d section and content) In the event this informatio n is protected by the Federal Confidentiality of Alcohol and Drug Abuse Patient Records regulations: The Federal rules restrict any use of the information to criminally investigate or prosecute any alcohol or drug abuse patient.[facility] the event this information is protected by the Federal Confidentiality of Alcohol and Drug Abuse Patient Records regulations: The Federal rules restrict any use of the information to criminally investigate or prosecute any alcohol or drug abuse patient.[facility] the event this information is protected by the Federal Confidentiality of Alcohol and Drug Abuse Patient Records regulations: The Federal rules restrict any use of the information to criminally investigate or prosecute any alcohol or drug abuse patient.[facility] the event this information is protected by the Federal Confidentiality of Alcohol and Drug Abuse Patient Records regulations: The Federal rules restrict any use of the information to criminally investigate or prosecute any alcohol or drug abuse patient.[facility] the event this information is protected by the Federal Confidentiality of Alcohol and Drug Abuse Patient Records regulations: The Federal rules restrict any use of the information to criminally investigate or prosecute any alcohol or drug abuse patient.[facility] the event this information is protected by the Federal Confidentiality of Alcohol and Drug Abuse Patient Records regulations: The Federal rules restrict any use of the information to criminally investigate or prosecute any alcohol or drug abuse patient.[facility] the event this information is protected by the Federal Confidentiality of Alcohol and Drug Abuse Patient Records regulations: The Federal rules restrict any use of the information to criminally investigate or prosecute any alcohol or drug abuse patient.[facility] the event this information is protected by the Federal Confidentiality of Alcohol and Drug Abuse Patient Records regulations: The Federal rules restrict any use of the information to criminally investigate or prosecute any alcohol or drug abuse patient.[facility] the event this information is protected by the Federal Confidentiality of Alcohol and Drug Abuse Patient Records regulations: The Federal rules restrict any use of the information to criminally investigate or prosecute any alcohol or drug abuse patient.[facility] Center[facility] the event this information is protected by the Federal Confidentiality of Alcohol and Drug Abuse Patient Records regulations: The Federal rules restrict any use of the information to criminally investigate or prosecute any alcohol or drug abuse patient.[facility] the event this information is protected by the Federal Confidentiality of Alcohol and Drug Abuse Patient Records regulations: The Federal rules restrict any use of the information to criminally investigate or prosecute any alcohol or drug abuse patient.[facility] Center[facility] the event this information is protected by the Federal Confidentiality of Alcohol and Drug Abuse Patient Records regulations: The Federal rules restrict any use of the information to criminally investigate or prosecute any alcohol or drug abuse patient.[facility] Center[facility] the event this information is protected by the Federal Confidentiality of Alcohol and Drug Abuse Patient Records regulations: The Federal rules restrict any use of the information to criminally investigate or prosecute any alcohol or drug abuse patient.[facility] Center[facility] the event this information is protected by the Federal Confidentiality of Alcohol and Drug Abuse Patient Records regulations: The Federal rules restrict any use of the information to criminally investigate or prosecute any alcohol or drug abuse patient.[facility] Center[facility] the event this information is protected by the Federal Confidentiality of Alcohol and Drug Abuse Patient Records regulations: The Federal rules restrict any use of the information to criminally investigate or prosecute any alcohol or drug abuse patient.[facility] CenterIn the event this information is protected by the Federal Confidentiality of Alcohol and Drug Abuse Patient Records regulations: The Federal rules restrict any use of the information to criminally investigate or prosecute any alcohol or drug abuse patient.[facility] Center[facility] the event this information is protected by the Federal Confidentiality of Alcohol and Drug Abuse Patient Records regulations: The Federal rules restrict any use of the information to criminally investigate or prosecute any alcohol or drug abuse patient.[facility] Center[facility] the event this information is protected by the Federal Confidentiality of Alcohol and Drug Abuse Patient Records regulations: The Federal rules restrict any use of the information to criminally investigate or prosecute any alcohol or drug abuse patient.[facility] CenterIn the event this information is protected by the Federal Confidentiality of Alcohol and Drug Abuse Patient Records regulations: The Federal rules restrict any use of the information to criminally investigate or prosecute any alcohol or drug abuse patient.[facility] CenterIn the event this information is protected by the Federal Confidentiality of Alcohol and Drug Abuse Patient Records regulations: The Federal rules restrict any use of the information to criminally investigate or prosecute any alcohol or drug abuse patient.[facility] CenterIn the event this information is protected by the Federal Confidentiality of Alcohol and Drug Abuse Patient Records regulations: The Federal rules restrict any use of the information to criminally investigate or prosecute any alcohol or drug abuse patient.[facility] CenterIn the event this information is protected by the Federal Confidentiality of Alcohol and Drug Abuse Patient Records regulations: The Federal rules restrict any use of the information to criminally investigate or prosecute any alcohol or drug abuse patient.[facility] CenterIn the event this information is protected by the Federal Confidentiality of Alcohol and Drug Abuse Patient Records regulations: The Federal rules restrict any use of the information to criminally investigate or prosecute any alcohol or drug abuse patient.[facility] CenterIn the event this information is protected by the Federal Confidentiality of Alcohol and Drug Abuse Patient Records regulations: The Federal rules restrict any use of the information to criminally investigate or prosecute any alcohol or drug abuse patient.[facility] CenterIn the event this information is protected by the Federal Confidentiality of Alcohol and Drug Abuse Patient Records regulations: The Federal rules restrict any use of the information to criminally investigate or prosecute any alcohol or drug abuse patient.[facility] CenterIn the event this information is protected by the Federal Confidentiality of Alcohol and Drug Abuse Patient Records regulations: The Federal rules restrict any use of the information to criminally investigate or prosecute any alcohol or drug abuse patient.[facility] CenterIn the event this information is protected by the Federal Confidentiality of Alcohol and Drug Abuse Patient Records regulations: The Federal rules restrict any use of the information to criminally investigate or prosecute any alcohol or drug abuse patient.[facility] CenterIn the event this information is protected by the Federal Confidentiality of Alcohol and Drug Abuse Patient Records regulations: The Federal rules restrict any use of the information to criminally investigate or prosecute any alcohol or drug abuse patient.[facility] CenterIn the event this information is protected by the Federal Confidentiality of Alcohol and Drug Abuse Patient Records regulations: The Federal rules restrict any use of the information to criminally investigate or prosecute any alcohol or drug abuse patient.[facility] CenterIn the event this information is protected by the Federal Confidentiality of Alcohol and Drug Abuse Patient Records regulations: The Federal rules restrict any use of the information to criminally investigate or prosecute any alcohol or drug abuse patient.[facility] CenterIn the event this information is protected by the Federal Confidentiality of Alcohol and Drug Abuse Patient Records regulations: The Federal rules restrict any use of the information to criminally investigate or prosecute any alcohol or drug abuse patient.[facility] Reason for Visit (unrecogniz ed section and content) Specialty Diagnoses / Procedures Referred By Contac t Referred To Contact Cardiology / CARDIOVASCULAR MEDICINE Diagnoses CAD (coronary artery disease) CHF (congestive heart failure) (HCC) CAD/ CHF Procedures OFFICE/OUTPATIENT ESTABLISHED MOD [facility] 30-39 MIN CON INTERNAL CLINICAL Noble Harris MD [address] [place] [address] Dallin Harris MD [address] [facility] [place] [phone] Referral ID Status Reason Start Date Expiration Date Visits Re quested Visits Authorized [id number] Closed 12/11/2021 07/07/2022 1 1 Reason Comments Refill Request Specialty Diagnoses / Procedures Referred By Contact Referred To Contact Cardiology / CARDIOVASCULAR MEDICINE Diagnoses Paroxysmal atrial fibrillation Atherosclerotic heart disease of [place] coronary artery without angina pectoris Essential hypertension, malignant Mixed hyperlipidemia Follow-up exam, 7 months to 1 year since previous exam Paroxysmal atrial fibrillation (HCC) [I48.0] Coronary artery disease involving [place] coronary artery of [place] heart without angina pectoris [I25.10] Essential hypertension [I10] Mixed hyperlipidemia [E78.2] 1 YEAR FOLLOW UP ECHO,EKG,FLP,CMP AND CBC Procedures OFFICE/OUTPATIENT ESTABLISHED MOD MDM 30-39 MIN EST CLINICAL Dallin Harris MD [address] [place] [address] Dallin Harris MD [address] [facility] [facility] [place] [address] Referral ID Status Reason Start Date Expiration Date V isits Requested Visits Authorized [id number] Closed Financial Clearance Not Required 01/31/2023 04/01/2023 1 0 Specialty Diagnoses / Procedures Referred By Contac t Referred To Contact Cardiology / CARDIOVASCULAR MEDICINE Diagnoses Persistent atrial fibrillation (HCC) Dx: persistent atrial fibtillation Procedures OFFICE/OUTPATIENT ESTABLISHED MOD MDM 30-39 MIN EST EPS Noble Harris MD [address] [facility] [place] [phone] Noble Harris MD [address] [place], [place] [address] [address] Referral ID Status Reason Start Date Expiration Date Visits Re quested Visits Authorized [id number] Closed 03/04/2023 07/07/2023 1 1 Reason Comments Patient Update Reason Comments Patient Education [id number] Reason Comments Transmitter 90 days Specialty Diagnoses / Procedures Referred By Contac t Referred To Contact Cardiology / CARDIOVASCULAR MEDICINE Diagnoses Paroxysmal atrial fibrillation (HCC) DX 3-4 MONTH PVI F/U Procedures OFFICE/OUTPATIENT ESTABLISHED MOD MDM 30 MIN EST EPS Dallin Harris MD [address] [place] [address] Noble Harris MD [address] [facility] [facility] [place] [address] Referral ID Status Reason Start Date Expiration Date Visits Re quested Visits Authorized [id number] Closed 11/04/2023 07/07/2024 1 1 Reason Comments Forms Reason Comments Established Patient Follow-Up Specialty Diagnoses / Procedures Referred By Contac t Referred To Contact Cardiology / CARDIOVASCULAR MEDICINE Diagnoses Coronary artery disease involving [place] coronary artery of [place] heart without angina pectoris Paroxysmal atrial fibrillation (HCC) Mixed hyperlipidemia Dx: Coronary artery disease involving [place] coronary artery of [place] heart without angina pectoris; Mixed hyperlipidemia; Paroxysmal atrial fibrillation (HCC) Est Clinical Patient 1 Yr follow up w/ekg & labs Patient Called to Schedule Procedures OFFICE/OUTPATIENT ESTABLISHED MOD MDM 30 MIN EST CLINICAL Dallin Harris MD [address] [place] [address] Dallin Harris MD [address] [place] [address] Referral ID Status Reason Start Date Expiration Date Visits Re quested Visits Authorized [id number] Closed 02/13/2024 07/07/2024 1 1 Reason Comments Pain Reason Comments Post-op Care Teams (unrecognized sec tion and content) Athletic Shoe Designer Relationship Specialty Start Date End Date Hope Vazquez MD [address] [place] [phone] Referring Cardiology 03/23/20 Dallin Harris MD [address] [facility] [place] [address] Primary Staff Physician Cardiology 12/08/21 Athletic Shoe Designer Relationship Specialty Start Date End Date Hope Vazquez MD [address] [place] [phone] Referring Cardiology 03/23/20 Dallin Harris MD [address] [place] [address] Primary Staff Physician Cardiology 12/08/21 Team Status: Active Member Role Status Dates PHYSICIAN NO FAMILY Primary Care Provider Active Figueroa Esqueda PA-C Emergency Provider Active Randell Fields DO Admit Provider, Attending Provider Active Team Status: Active Member Role Status Dates PHYSICIAN NO FAMILY Primary Care Provider Active Athletic Shoe Designer Relationship Specialty Start Date End Date Hope Vazquez MD [address] [place] [phone] Referring Cardiology 03/23/20 Dallin Harris MD [address] [place] [address] Primary Staff Physician Cardiology 12/08/21 Athletic Shoe Designer Relationship Specialty Start Date End Date Hope Vazquez MD [address] [place] [phone] Referring Cardiology 03/23/20 Dallin Harris MD [address] [place] [address] Primary Staff Physician Cardiology 12/08/21 Athletic Shoe Designer Relationship Specialty Start Date End Date Hope Vazquez MD [address] [place] [phone] Referring Cardiology 03/23/20 Dallin Harris MD [address] [place] [address] Primary Staff Physician Cardiology 12/08/21 Athletic Shoe Designer Relationship Specialty Start Date End Date Hope Vazquez MD [address] [place] [phone] Referring Cardiology 03/23/20 Dallin Harris MD [address] [place] [address] Primary Staff Physician Cardiology 12/08/21 Athletic Shoe Designer Relationship Specialty Start Date End Date Hope Vazquez MD [address] [place] [phone] Referring Cardiology 03/23/20 Dallin Harris MD [address] [place], [place] [id number] Primary Staff Physician Cardiology 12/08/21 Athletic Shoe Designer Relationship Specialty Start Date End Date Hope Vazquez MD [address] [place] [phone] Referring Cardiology 03/23/20 Dallin Harris MD [address] [place] [address] Primary Staff Physician Cardiology 12/08/21 Athletic Shoe Designer Relationship Specialty Start Date End Date Hope Vazquez MD [address] [place] [phone] Referring Cardiology 03/23/20 Dallin Harris MD [address] [facility] [place] [address] Primary Staff Physician Cardiology 12/08/21 Athletic Shoe Designer Relationship Specialty Start Date End Date Hope Vazquez MD [address] [place] [phone] Referring Cardiology 03/23/20 Dallin Harris MD [address] [place] [address] Primary Staff Physician Cardiology 12/08/21 Athletic Shoe Designer Relationship Specialty Start Date End Date Hope Vazquez MD [address] [place] [phone] Referring Cardiology 03/23/20 Dallin Harris MD [address] [place] [place], [place] [id number] Primary Staff Physician Cardiology 12/08/21 Athletic Shoe Designer Relationship Specialty Start Date End Date Hope Vazquez MD [address] [place] [phone] Referring Cardiology 03/23/20 Dallin Harris MD [address] [place] [address] Primary Staff Physician Cardiology 12/08/21 Athletic Shoe Designer Relationship Specialty Start Date End Date Hope Vazquez MD [address] [place] [phone] Referring Cardiology 03/23/20 Dallin Harris MD [address] [place] [address] Primary Staff Physician Cardiology 12/08/21 Athletic Shoe Designer Relationship Specialty Start Date End Date Hope Vazquez MD [address] [place] [phone] Referring Cardiology 03/23/20 Dallin Harris MD [address] [place] [address] Primary Staff Physician Cardiology 12/08/21 Athletic Shoe Designer Relationship Specialty Start Date End Date Hope Vazquez MD [address] [place] [phone] Referring Cardiology 03/23/20 Dallin Harris MD [address] [place] [address] Primary Staff Physician Cardiology 12/08/21 Athletic Shoe Designer Relationship Specialty Start Date End Date Hope Vazquez MD [address] [place] [phone] Referring Cardiology 03/23/20 Dallin Harris MD [address] [facility] [place] [phone] Primary Staff Physician Cardiology 12/08/21 Athletic Shoe Designer Relationship Specialty Start Date End Date Hope Vazquez MD [address] [place] [phone] Referring Cardiology 03/23/20 Dallin Harris MD [address] [place] [id number] Primary Staff Physician Cardiology 12/08/21 Athletic Shoe Designer Relationship Specialty Start Date End Date Hope Vazquez MD [address] [place] [phone] Referring Cardiology 03/23/20 Dallin Harris MD [address] [place] [id number] Primary Staff Physician Cardiology 12/08/21 Athletic Shoe Designer Relationship Specialty Start Date End Date Sean Resendez MD [address] [address] PCP - General Family Medicine 12/11/22 Athletic Shoe Designer Relationship Specialty Start Date End Date Sean Resendez MD [address] [address] PCP - General Family Medicine 12/11/22 Athletic Shoe Designer Relationship Specialty Start Date End Date Sean Resendez MD [address] [address] PCP - General Family Medicine 12/11/22 Athletic Shoe Designer Relationship Specialty Start Date End Date Sean Resendez MD [address] [address] PCP - General Family Medicine 12/11/22 Athletic Shoe Designer Relationship Specialty Start Date End Date Sean Resendez MD [address] [address] PCP - General Family Medicine 12/11/22 Athletic Shoe Designer Relationship Specialty Start Date End Date Sean Resendez MD [address] [address] PCP - General Family Medicine 12/11/22 Athletic Shoe Designer Relationship Specialty Start Date End Date Sean Resendez MD [address] [address] PCP - General Family Medicine 12/11/22 Athletic Shoe Designer Relationship Specialty Start Date End Date Sean Resendez MD [address] [address] PCP - General Family Medicine 12/11/22 Athletic Shoe Designer Relationship Specialty Start Date End Date Sean Resendez MD [address] [address] PCP - General Family Medicine 12/11/22 Athletic Shoe Designer Relationship Specialty Start Date End Date Sean Resendez MD [address] [address] PCP - General Family Medicine 12/11/22 Athletic Shoe Designer Relationship Specialty Start Date End Date Sean Resendez MD [address] [address] PCP - General Family Medicine 12/11/22 Athletic Shoe Designer Relationship Specialty Start Date End Date Sean Resendez MD [address] [place] [address] PCP - General Family Medicine 12/11/22 Athletic Shoe Designer Relationship Specialty Start Date End Date Hope Vazquez MD [address] [place] [phone] Referring Cardiology 03/23/20 Dallin Harris MD [address] [place] [address] Primary Staff Physician Cardiology 12/08/21 Athletic Shoe Designer Relationship Specialty Start Date End Date Hope Vazquez MD [address] [place] [phone] Referring Cardiology 03/23/20 Dallin Harris MD [address] [facility] [place], [place] [phone] Primary Staff Physician Cardiology 12/08/21 Goals (unrecognized section and content) Goals may be documented in a n alternate section FOR RECORDS PERTAINING TO PATIENTS WHO ARE OR HAVE BEEN ENROLLED IN A CHEMICAL DEPENDENCY/SUBSTANCEABUSE PROGRAM, SOME INFORMATION MAY BE OMITTED. This clinical summary was aggregated from multiple sources. Caution should be exercised in using it in the provision of clinical care. This summary normalizes information from multiple sources, and as a consequence, information in this document may materially change the coding, format and clinical context of patient data. In addition, data may be omitted in some cases. CLINICAL DECISIONS SHOULD BE BASED ON THE PRIMARY CLINICAL RECORDS. [employer] provides no warranty or guarantee of the accuracy or completeness of information in this document.
[2025-03-05 07:09] LABS: Hematocrit 38.7 % (42.0-54.0); Hemoglobin 13.3 g/dL (14.0-18.0); Immature Granulocytes Abs Auto 0.02 10^3/uL (0.00-0.03); Immature Granulocytes Pct Auto 0.2 % (0.0-0.5); Lymphocytes Absolute Auto 3.5 10^3/uL (1.2-3.8); Mean Corpuscular HGB Conc 34.4 g/dL (29.9-35.2); Mean Corpuscular Hemoglobin 30.2 pg (25.9-34.0); Mean Corpuscular Volume 88.0 fL (80.0-94.0); Platelet Count 253 10^3/uL (150-450); Red Blood Count 4.40 10^6/uL (4.70-6.10); White Blood Count 9.2 10^3/uL (4.0-11.0)
[2025-03-05 07:28] LABS: Alanine Aminotransferase 30 U/L (16-63); Albumin Globulin Ratio 1.1; Albumin Level 3.8 g/dL (3.4-5.0); Alkaline Phosphatase 66 U/L (46-116); Anion Gap 10.7; Aspartate Amino Transferase 17 U/L (15-37); Blood Urea Nitrogen 19.0 mg/dL (7.0-18.0); Calcium 8.5 mg/dL (8.5-10.1); Carbon Dioxide 26.1 mmol/L (21.0-32.0); Chloride 108 mmol/L (98-107); Cholesterol 103 mg/dL (<=200); Estimated GFR (African America >60 (>=60 mL/min/1.73m^2); Estimated GFR (Non-African Ame >60 (>=60 mL/min/1.73m^2); Globulin 3.4 g/dL; Glucose 112 mg/dL (74-106); HDL Cholesterol 42 mg/dL (40-60); Potassium 3.8 mmol/L (3.5-5.1); Sodium 141 mmol/L (136-145); Total Protein 7.2 g/dL (6.4-8.2); Triglycerides 123 mg/dL (<=150); VLDL CHOLESTEROL 24.6 mg/dL
== END 2025-03-05 06:46 | disposition home or self-care (01) ==
LOC: LAB 06:45
DX: I25.10 Atherosclerotic heart disease of native coronary artery without angina pectoris (principal); I48.0 Paroxysmal atrial fibrillation; I10 Essential (primary) hypertension; E78.2 Mixed hyperlipidemia
CPT/HCPCS: 36415; 80053; 80061; 85025